=== PATIENT | male | born 1970 | race Caucasian/White ===

== ENCOUNTER → 2022-03-24 | Outpatient (CLI) | payer BC, SELFPAY ==
--- NOTE | 2022-03-24 08:38 | EKG12_ITS ---
Test Reason : PREOP Blood Pressure : / mmHG Vent. Rate : 072 BPM Atrial Rate : 072 BPM P-R Int : 168 ms QRS Dur : 092 ms QT Int : 384 ms P-R-T Axes : 070 074 071 degrees QTc Int : 420 ms Normal sinus rhythm Normal ECG Confirmed by RACHEL LEON, DIANN ([id number]), photo editor CAESAR FOSTER ([id number]) on 03/25/2022 8:23:44 AM Referred By: Juliet Diaz Confirmed By:DIANN RAMOS MD
[2022-03-24 08:42] LABS: Hemoglobin 15.9 g/dL (13.0-16.5)
[2022-03-24 08:56] LABS: Anion Gap 4 (5-15); BUN 13 mg/dL (7-18); Calcium,Total 9.4 mg/dL (8.5-10.1); Chloride 106 mmol/L (98-107); EST Glomerular Filtration Rate 84 mL/min (>60); Est Glom Filt Rate - Afr Amer 102 mL/min (>60); Glucose 114 mg/dL (74-106); Potassium 4.1 mmol/L (3.5-5.1); Sodium Level 139 mmol/L (136-145)
== END | disposition home or self-care (01) ==
PROVIDERS: PCP Student in an Organized Health Care Education/Training Program; Referring Provider Orthopaedic Surgery Hand Surgery; Visit Provider Orthopaedic Surgery Hand Surgery
DX: N18.9 Chronic kidney disease, unspecified (principal); S66.324A Laceration of extensor muscle, fascia and tendon of right ring finger at wrist and hand level, initial encounter
CPT/HCPCS: 36415; 80048; 85018; 93005

== ENCOUNTER 2023-03-30 10:49 | Emergency (ER) | payer BC, SELFPAY ==
[2023-03-30 10:51] VITALS: BP 122/95; PULSE 83; RESP 14; TEMP 36.1; O2SAT 95; BMI 23.7
--- NOTE | 2023-03-30 12:08 | EDS_ITS ---
HPI HPI - GI History of Present Illness Chief Complaint: Abd Pain Informant: patient Narrative Narrative: Intermittent left upper quadrant abdominal pain for past 3 weeks. More persistent over the last week. States a mild pain stools have been more stringy. Today had blood when he wiped. Colonoscopy from screening 5 to 6 years ago in [place]. States had a polypectomy that was removed. No anticoagulation medicines. No past medical history. Decreased urine output. Denies fever chills or sweats. States when he eats a large meal would feel fullness in his upper abdomen. Denies any vomiting. Prior similar symptoms: No PFSH PFSH Medical History Trigeminal neuralgia Home Medications cefdinir 300 mg capsule 300 mg PO BID #19 caps 03/30/23 [Rx Last Taken Unknown] metronidazole 500 mg tablet 500 mg PO Q8H #29 tabs 03/30/23 [Rx Last Taken Unknown] pantoprazole 40 mg tablet,delayed release 40 mg PO DAILY #30 tabs 03/30/23 [Rx Last Taken Unknown] Allergy/AdvReac Type Severity Reaction Status Date / Time No Known Allergies Allergy Verified 03/30/23 10:50 Social History Smoking Status: Former smoker ROS ROS ED Constitutional Constitutional ED: Denies chills, fever(s) or sweats Eyes Eyes: Denies change in vision ENT ENT ED: Denies dysphagia or sore throat Cardiovascular Cardiovascular: Denies chest pain, leg edema, palpitations or racing heartbeat Respiratory/Chest Respiratory/Chest: Denies cough, dyspnea or dyspnea on exertion Gastrointestinal Gastrointestinal: Reports abdominal pain; Denies diarrhea, nausea or vomiting Genitourinary Genitourinary ED: Denies dysuria, hematuria or urinary frequency Musculoskeletal Musculoskeletal: Denies back pain, extremity pain or neck pain Integumentary Denies rash or wounds Neurologic Neurologic: Denies headache(s), paresthesias or weakness EXAM Physical Exam Const Vital Signs: 03/30/23 10:51 Temperature 96.9 F L Temperature Source Temporal Pulse Rate 83 Respiratory Rate 14 Blood Pressure 122/95 H Blood Pressure Mean 104 Pulse Ox 95 Oxygen Delivery Method Room Air Positive well nourished and well developed General Appearance ED: well developed and NAD HEENT Reports moist mucous membranes normocephalic and atraumatic Eyes PERRL, EOMs intact bilaterally and conjunctivae normal General Eye ED: Yes normal appearance of both eyes Neck no lymphadenopathy and supple General: Negative for tenderness Chest Wall Chest: Negative for tenderness Resp normal respiratory effort and normal air movement Effort and Inspection: symmetric chest movement; Negative for respiratory distress Cardio regular rate, regular rhythm and no murmurs Peripheral Pulses: pulses 2+ throughout GI normal to inspection, nondistended, normoactive bowel sounds GI Narrative: Mild tenderness epigastrium left upper quadrant. No guarding or rebound. Negative Carbajal's or McBurney's tenderness. Palpation: Negative for guarding or rebound tenderness present Back/Spine no CVA tenderness and no thoracic nor lumbar tenderness Extremity normal to inspection General Extremety ED: Negative for edema or tenderness General Extremity: Negative for edema Neuro oriented x3 and no sensory deficits noted Sensorium / Orientation: awake and alert Skin no rashes or lesions noted and no wounds MDM MDM MDM Narrative Medical decision making narrative: Interventions / MDM: Differential diagnosis: Gastritis, colitis, colon cancer Diagnosis considered but do not suspect: N/A My EKG interpretation: N/A Imaging independently reviewed and interpreted by myself: CT abdomen pelvis with IV and p.o. contrast: Sigmoid diverticulitis, hepatic cysts. External documents reviewed: N/A Test considered but not ordered:N/A ED course: Patient nonsurgical abdomen progressing pain left upper quadrant. Reports decreased size of stools. Polypectomy 5 to 6 years ago [id number]. Labs were drawn CT scan with IV and oral contrast ordered. Was given Pepcid for his epigastric discomfort. 1430: Labs all stable, CT scan notes concerns for uncomplicated diverticulitis. Denies any rectal bleeding. He is feeling better on reexamination. Started on cefdinir and Flagyl p.o. He does not drink alcohol. Prescription for 10-day course of Flagyl and cefdinir, also pantoprazole for gastritis symptoms. He is given follow-up with GI for follow-up outpatient further testing. All questions were answered. Re-evaluation: stable Disposition discussed with patient/family/significant other: Patient Case discussed with consulting clinician: N/A This note was generated with [employer] dictation software. It may contain incorrect words, spelling, and punctuation that were not noted in checking the note before signing. Lab Data Attestation: I reviewed the patient's lab results. Labs: Laboratory Results - last 24 hr 03/30/23 11:09 WBC 6.0 RBC 4.44 L Hgb 14.2 Hct 40.6 MCV 91.4 MCH 32.0 MCHC 35.0 RDW Std Deviation 39.9 RDW Coeff of Micaela 11.9 Plt Count 246 MPV 10.1 Immature Gran % (Auto) 0.200 Neut % (Auto) 57.7 Lymph % (Auto) 33.4 Placer % (Auto) 6.7 Eos % (Auto) 1.3 Baso % (Auto) 0.7 Absolute Neuts (auto) 3.4 Absolute Lymphs (auto) 1.99 Nucleated RBC % 0 Sodium 140 Potassium 3.8 Chloride 107 Carbon Dioxide 27.0 Anion Gap 6 BUN 18 Creatinine 0.89 Estim Creat Clear Calc 101.39 Est GFR (MDRD) Af Amer 116 Est GFR (MDRD) Non-Af 96 BUN/Creatinine Ratio 20.3 H Glucose 95 Calcium 8.6 Total Bilirubin 0.40 AST 14 L ALT 23 Alkaline Phosphatase 63 Total Protein 6.5 Albumin 3.6 Globulin 2.9 Albumin/Globulin Ratio 1.2 Lipase 23 Radiography Diagnostic Testing: Clinical Impression(s) from Imaging Studies Abdomen/Pelvis CT 03/30/23 14:07 IMPRESSION: Findings suggestive of a colitis involving the rectosigmoid colon as well as the descending colon. Mild degree of bladder wall thickening although the bladder is not completely distended. Findings suggestive of multiple hepatic small cysts. Electronically Signed: John Sloan MD at 14:23 EDT , Discharge Plan Triage Chief Complaint: Abd Pain ED Provider: Johan Steiner Dx/Rx/DC Orders Clinical Impression: Acute diverticulitis of intestine, Gastritis Instructions: Diverticulitis Dc, ED Gastritis (Adult) Prescriptions: New metronidazole [metronidazole] 500 mg tablet 500 mg PO Q8H Qty: 29 0RF pantoprazole 40 mg tablet,delayed release (DR/EC) 40 mg PO DAILY Qty: 30 0RF cefdinir 300 mg capsule 300 mg PO BID Qty: 19 0RF Stand Alone Forms: ED Work / School Excuse Primary Care Provider: Luisito Rosales Referrals: Luisito Rosales DO [Primary Care Provider] - Friend,DO Leonid [Med Staff - Active Staff] - 1-2 Weeks Activity Restrictions/Additional Instructions: Oral and IV contrast CT sigmoid diverticulitis. Take antibiotics and finish as prescribed. Avoid alcohol or alcohol products. Follow-up with GI as an outpatient for likely plan colonoscopy in the near future. Return if any worsening symptoms Disposition Disposition: Home, Self Care
[2023-03-30] MEDS: 0.9% Normal Saline 1,000 ML 1000 ML IV (12:14)
[2023-03-30] MEDS: Famotidine 200 MG/20 ML MDV 20 MG in 0.9% Normal Saline (Pres. free 8 ML 300 MG IV (12:14)
[2023-03-30 12:15] LABS: Absolute Lymphocyte Count 1.99 X10^3/uL (0.83-4.51); Absolute Neutrophil Count 3.4 X10^3/uL (2.0-7.7); Basophil# 0.04 X10^3/uL; Basophil% 0.7 % (0-1); Eosinophil# 0.08 X10^3/uL; Eosinophils% 1.3 % (0-5); Hematocrit 40.6 % (40-54); Hemoglobin 14.2 g/dL (13.0-16.5); Lymphocyte # 1.99 X10^3/ul (0.83-4.51); Lymphocyte % 33.4 % (19-41); Mean Corpuscular Volume 91.4 fL (80-94); Mean Platelet Vol. 10.1 fl (6.2-12.0); Monocyte% 6.7 % (0-10); NRBC Flagged by Analyzer 0 % (0-5); Neutrophil # 3.43 X10^3/uL (2.7-7.7); Neutrophil % 57.7 % (47-70); Platelet Count 246 K/mm3 (150-450); RBC Distribution Width CV 11.9 % (11.6-14.6); RBC Distribution Width SD 39.9 fl (35.1-43.9); Red Blood Count 4.44 M/mm3 (4.6-6.2)
[2023-03-30 12:33] LABS: ALB/GLOB Ratio 1.2 RATIO (0.9-2.4); AST(SGOT) 14 U/L (15-37); Alanine Aminotransfer ALT/SGPT 23 U/L (16-61); Albumin, Serum 3.6 g/dL (3.2-5.0); Alkaline Phosphatase 63 U/L (45-117); Anion Gap 6 (5-15); BUN 18 mg/dL (7-18); BUN/Creat Ratio 20.3 RATIO (10-20); Calcium,Total 8.6 mg/dL (8.5-10.1); Chloride 107 mmol/L (98-107); Creatinine, Serum 0.89 mg/dL (0.70-1.30); EST Glomerular Filtration Rate 96 mL/min (>60); Est Glom Filt Rate - Afr Amer 116 mL/min (>60); Estimated Creatinine Clearance 101.39 ml/min; Globulin 2.9 g/dL (2.2-4.2); Glucose 95 mg/dL (74-106); Lipase 23 U/L (13-75); Potassium 3.8 mmol/L (3.5-5.1); Protein, Total 6.5 g/dL (6.4-8.2); Sodium Level 140 mmol/L (136-145)
--- NOTE | 2023-03-30 14:07 | CT_ITS ---
STUDY: CT ABDOMEN AND PELVIS WITH CONTRAST REASON FOR EXAM: Male, 52 years old. Two-week history of a abdominal pain. Blood in the stool. RADIATION DOSAGE (If Supplied By Facility): CTDIvol = ( 13.18 ) mGy, DLP = ( 670.84 ) mGycm TECHNIQUE: Transaxial images were obtained from the dome of the diaphragm to the symphysis pubis without oral contrast. Oral and amp; IV Gastrografin and amp; 100mL Isovue-300 was administered. Sagittal and coronal images were reconstructed. Individualized dose optimization techniques were used for this CT. COMPARISON: None. FINDINGS: The visualized lung bases are unremarkable. The visualized portions of the heart are within normal limits. There is decreased attenuation of the liver consistent with steatosis. Scattered small rounded hypodensities are seen throughout the liver suggestive of small cysts. Normal gallbladder and extrahepatic biliary system. Normal spleen. Normal pancreas. Normal bilateral adrenal glands. Tiny cyst is seen in the lateral aspect of the right kidney. Normal left kidney. Normal visualized stomach. Normal small intestine. There is evidence of a thickening of the rectosigmoid colon with mild increased markings in the surrounding peritoneal fat suggestive of a colitis. Mild degree of circumferential wall thickening of the mid descending colon as well. The appendix is visualized and appears normal. There is scattered atherosclerotic calcification of the abdominal aorta, without a demonstrated aneurysm. Normal inferior vena cava. Normal retroperitoneum. Mild degree of bladder wall thickening. There is a small umbilical hernia containing fat. There are mild degenerative changes of the visualized lumbar spine. CT/Abdomen/Pelvis WITH Contrast IMPRESSION: Findings suggestive of a colitis involving the rectosigmoid colon as well as the descending colon. Mild degree of bladder wall thickening although the bladder is not completely distended. Findings suggestive of multiple hepatic small cysts. Electronically Signed: John Sloan MD at 14:23 EDT ,
[2023-03-30 14:57] VITALS: RESP 16
== END 2023-03-30 14:57 | disposition home or self-care (01) ==
PROVIDERS: Emergency Provider Emergency Medicine; PCP Student in an Organized Health Care Education/Training Program; Visit Provider Emergency Medicine
DX: K57.32 Diverticulitis of large intestine without perforation or abscess without bleeding (principal); Z87.891 Personal history of nicotine dependence; K29.70 Gastritis, unspecified, without bleeding
CPT/HCPCS: 74177; 80053; 83690; 85025; 99283; J7030; Q9967; A4216; J3490

== ENCOUNTER 2024-07-31 08:25 | Emergency (ER) | payer BC, SELFPAY ==
[2024-07-31 08:26] VITALS: BP 129/111; PULSE 82; RESP 18; TEMP 37.2; O2SAT 99
--- NOTE | 2024-07-31 08:45 | ED.VIS.CHEST ---
HPI History of Present Illness Chief Complaint: Chest Other Informant: patient Onset/Context/Timing Onset: Today Activity at onset: sudden Timing: Continuous Quality: Positive for Sharp and Stabbing Location: Left Chest Worsened By: Movement of Torso, Palpation and Breathing Associated Symptoms: Negative for Nausea, Vomiting, Diaphoresis, Dyspnea, Cough, Fever, Lightheadedness, Acid Reflux or Palpitations Narrative Narrative: Patient presents with left-sided chest pain that began this morning. Patient states he rolled over in bed and felt a pop. Patient states his pain is sharp and shooting. Patient states it is over the left chest and radiates to the left scapular area. Patient states it is worse with certain movements and with deep breathing. Patient states nothing seems to help with it. Patient denies any fevers or chills. Patient denies any nausea or vomiting. Patient denies any shortness of breath. Patient denies any cardiac or PE risk factors. CVD Risk Factors: Negative for Hypertension, Diabetes, Hypercholesterolemia, Family History 1' </=55 or Smoking PE Risk Factors: Negative for Recent Travel/Surgery, Recent Immobilization, Prior DVT or PE, Cancer or OCP + Smoking + >/=35 PFSH [facility] Medical History (Updated 07/31/24 @ 09:[address] Jorge Chapin, ) Trigeminal neuralgia Home Medications ?Medication ?Instructions ?Recorded ?Last Taken ?Type cefdinir 300 mg capsule 300 mg PO BID #19 caps 03/30/23 Unknown Rx metronidazole 500 mg tablet 500 mg PO Q8H #29 tabs 03/30/23 Unknown Rx pantoprazole 40 mg tablet,delayed 40 mg PO DAILY #30 tabs 03/30/23 Unknown Rx release hydrocodone-acetaminophen 5-325mg 1 tab PO Q6H PRN PRN Pain 3 days 07/31/24 Unknown Rx 5mg-325mg #10 TABLETS Allergy/AdvReac Type Severity Reaction Status Date / Time No Known Allergies Allergy Verified 07/31/24 08:25 Surgical History (Updated 07/31/24 @ 08:[address] Jorge Chapin, DO) Hx of brain surgery Hx of inguinal herniorrhaphy S/P tendon repair History of carpal tunnel surgery of left wrist Social History Smoking Status: Former smoker ROS ROS ED Constitutional Constitutional ED: Denies chills or fever(s) Eyes Eyes: Denies blurry vision or change in vision ENT ENT ED: Reports rhinorrhea; Denies sore throat Cardiovascular Cardiovascular: Reports chest pain; Denies palpitations Respiratory/Chest Respiratory/Chest: Denies cough or dyspnea Gastrointestinal Gastrointestinal: Denies nausea or vomiting Genitourinary Genitourinary ED: Denies dysuria or hematuria Musculoskeletal Musculoskeletal: Reports back pain; Denies neck pain Integumentary Denies abscess or rash Neurologic Neurologic: Denies headache(s) or weakness Allergic/Immunologic Allergic/Immunologic ED: Denies mouth swelling or urticaria EXAM Physical Exam Const Vital Signs: 07/31/24 08:26 Temperature 98.9 F Temperature Source Oral Pulse Rate 82 Respiratory Rate 18 Blood Pressure 129/111 H Blood Pressure Mean 117 Pulse Ox 99 Oxygen Delivery Method Room Air Positive well nourished and well developed General Appearance ED: well developed and NAD HEENT Reports moist mucous membranes Neck supple and no JVD Chest Wall Chest Narrative: There is tenderness to palpation over the left anterior chest wall. There is no bony crepitance or step-off noted. There is no subcutaneous emphysema palpated. Resp normal respiratory effort and clear to auscultation bilaterally Cardio regular rate and regular rhythm GI soft to palpation, non-tender and non-distended Neuro oriented x3, CN's II-XII intact bilaterally and no sensory deficits noted Sensorium / Orientation: awake and alert Motor Exam: strength 5/5 throughout Psych mental status grossly normal MDM MDM MDM Narrative Medical decision making narrative: Differential diagnosis includes pneumothorax, musculoskeletal pain, gastroesophageal reflux disease, and anxiety. Chest x-ray will be obtained to assess for pneumothorax and rib fracture. Radiography Chest X-Ray - ED: 2 View, Read by ED Physician, Read by Radiologist and No Acute Disease Diagnostic Testing: Clinical Impression(s) from Imaging Studies Chest X-Ray 07/31/24 09:05 IMPRESSION: No acute pulmonary process Electronically Signed: Sonu Jackson MD at 9:35 EST , PA and lateral chest x-ray was obtained. There are 2 views. On my independent interpretation, lung soto are clear. There is normal cardiac silhouette. Bony thorax is normal. There is no acute process noted. Radiologist also interpreted the x-ray and agrees. Treatment and Re-Evaluation :: Patient was given an injection of Toradol here. Patient was advised of his findings. Patient states he is unable to take anti-inflammatory medications because his primary care physician told him he had a thin-walled kidney. Patient was given a prescription for a short course of [place]. Patient was instructed to take 10-15 deep breaths every hour while awake to prevent atelectasis and pneumonia. Patient was instructed to follow-up with his primary care physician in 5 to 7 days. Patient understood and was agreeable with the plan. All questions were answered. Discharge Plan Triage Chief Complaint: Chest Other ED Provider: Jorge Chapin Dx/Rx/DC Orders Clinical Impression: Chest wall pain, Elevated blood pressure reading without diagnosis of hypertension Instructions: ED Chest Pain, Uncertain Cause, ED Chest Wall Pain, Costochondritis Prescriptions: New hydrocodone-acetaminophen 5-325 mg tablet 1 tab PO Q6H PRN PRN (Reason: Pain) 3 Days Qty: 10 0RF No Action metronidazole [metronidazole] 500 mg tablet 500 mg PO Q8H Qty: 29 0RF pantoprazole 40 mg tablet,delayed release (DR/EC) 40 mg PO DAILY Qty: 30 0RF cefdinir 300 mg capsule 300 mg PO BID Qty: 19 0RF Primary Care Provider: Luisito Rosales Referrals: Luisito Rosales DO [Primary Care Provider] - 5-7 Days Print Language: Pashto Disposition Disposition: Home, Self Care
--- NOTE | 2024-07-31 09:05 | RAD_ITS ---
STUDY: X-RAY CHEST REASON FOR EXAM: Male, 54 years old. Chest pain/pressure TECHNIQUE: PA and 2 lateral views of the chest. COMPARISON: None. FINDINGS: The lungs are clear and expanded. There is no demonstrated pleural abnormality. Normal size heart. Normal mediastinum and woo. Normal visualized pulmonary arteries. Normal visualized aortic arch and descending thoracic aorta. Normal visualized thoracic spine. Normal visualized ribs, clavicles, and shoulders. There is no demonstrated abnormality of the visualized soft tissue structures of the upper abdomen. RAD/Chest PA and Lateral IMPRESSION: No acute pulmonary process Electronically Signed: Sonu Jackson MD at 9:35 EST ,
[2024-07-31 09:22] VITALS: BMI 23.5
[2024-07-31] MEDS: Ketorolac 60 MG/2 ML Vial IM (09:40)
== END 2024-07-31 10:05 | disposition home or self-care (01) ==
PROVIDERS: Emergency Provider Emergency Medicine; PCP Student in an Organized Health Care Education/Training Program; Visit Provider Emergency Medicine
DX: R07.89 Other chest pain (principal); R03.0 Elevated blood-pressure reading, without diagnosis of hypertension; Z79.899 Other long term (current) drug therapy; Z87.891 Personal history of nicotine dependence
CPT/HCPCS: 71046; 96372; 99282

== ENCOUNTER → 2025-02-26 | Outpatient (CLI) | payer BC, SELFPAY ==
[2025-02-26 13:27] LABS: Hematocrit 40.9 % (40-54); Hemoglobin 14.3 g/dL (13.0-16.5); Immature Granulocytes Count 0.010 X10^3/uL (0.0-0.0); Mean Corp Hgb Conc 35.0 g/dL (32-36); Mean Corpuscular Volume 90.9 fL (80-94); Mean Platelet Vol. 10.0 fl (6.2-12.0); NRBC Flagged by Analyzer 0 % (0-5); Platelet Count 241 K/mm3 (150-450); RBC Distribution Width CV 12.0 % (11.6-14.6); RBC Distribution Width SD 40.4 fl (35.1-43.9); Red Blood Count 4.50 M/mm3 (4.6-6.2); White Blood Count 4.7 K/mm3 (4.4-11.0)
[2025-02-26 13:59] LABS: AST(SGOT) 17 U/L (<=37); Alanine Aminotransfer ALT/SGPT 13 U/L (<=46); Albumin, Serum 4.4 g/dL (3.5-5.0); Alkaline Phosphatase 69 U/L (40-129); Anion Gap 11 (5-15); BUN 12 mg/dL (4-19); BUN/Creat Ratio 14.7 RATIO (10-20); Calcium,Total 9.3 mg/dL (7.6-11.0); Carbon Dioxide 24.1 mmol/L (21.0-32.0); Chloride 103 mmol/L (98-108); Globulin 2.4 g/dL (2.2-4.2); Glucose 100 mg/dL (70-99); Potassium 3.7 mmol/L (3.3-5.1)
[2025-02-26 14:01] LABS: CRP < 3.00 mg/L (0.0-3.0); Lipase 39 U/L (13-75)
[2025-03-02 16:09] LABS: ANTINUCLEAR ANTIBODIES DIRECT Negative (Negative); Egg, Whole <0.10 kU/L (Class 0); Mussels <0.10 kU/L (Class 0)
[2025-03-15 14:09] LABS: ACCA 2 units (0-90); ALCA 2 units (0-60); AMCA 13 units (0-100)
== END | disposition home or self-care (01) ==
LOC: LAB 11:45
PROVIDERS: PCP Student in an Organized Health Care Education/Training Program
DX: K59.00 Constipation, unspecified (principal); R63.0 Anorexia; R10.9 Unspecified abdominal pain
CPT/HCPCS: 36415; 80053; 83516; 83690; 84443; 85025; 86003; 86005; 86036; 86038; 86140; 86225; 86671

== ENCOUNTER → 2025-03-04 | Outpatient (CLI) | payer BC, SELFPAY ==
--- OUTSIDE RECORDS SUMMARY | 2025-03-04 07:18 | XMS RPT_ITS | CCD ---
Author Organization [facility] Care Team Providers Care Film Loader Name Role Phone BOBBY COMBS, DR MARTINEZ Primary Care Physician [phone] ROMAR DO, DR MARTINEZ Attending Unavailable ROMAR DO, DR MARTINEZ Primary Care Unavailable ROMAR DO, DR MARTINEZ Primary Care Unavailable REICHFIELD DO, MANISHA Attending Unavailable ROMAR DO, DR MARTINEZ Primary Care Unavailable ROMAR DO, DR MARTINEZ Attending Unavailable ROMAR DO, DR MARTINEZ Primary Care Unavailable ROMAR DO, DR MARTINEZ Attending Unavailable ROMAR DO, DR MARTINEZ Primary Care Unavailable MIGUELITO LEON, DR ROXANNE PARKER Attending Unavai lable ROMAR DO, DR MARTINEZ Attending Unavailable ROMAR DO, DR MARTINEZ Primary Care Unavailable ROMAR DO, DR MARTINEZ Attending Unavailable ROMAR DO, DR MARTINEZ Primary Care Unavailable ROMAR DO, DR MARTINEZ Primary Care Unavailable ROMAR DO, DR MARTINEZ Attending Unavailable Romar DO, Dr. Martinez Primary Care Provider [phone] Bobby COMBS, Dr. Martinez Referring Provider Jocelin Copeland Attending Provider [phone] Jocelin Bar Attending Unavailable Michelle Rosales Primary Care Unavailable Michelle Rosales Referring Unavailable Michelle Rosales Primary Care Unavailable Jorge Chapin Attending Unavailable Jocelin Bar Attending Unavailable Jocelin Bar Referring Unavailable Michelle Rosales Primary Care Unavailable Medications Current Medications Medication Drug Class(es) Dates Sig (Normalized) Sig (Original) acetaminophen 325 mg / oxyCODONE hydrochloride 5 mg oral tablet (1 source) Opioid Agonist Start: 08-13-2022 End: 08-18-2022 take 1 tablet by mouth every six hours as needed for pain Percocet 5 mg-325 mg oral tablet Dose = 1 tab(s), Oral, q6h, PRN for pain, X 5 day(s), # 10 tab(s), 0 Refill(s), Fall Rib pain, 76 Start Date: 08/13/22 Stop Date: 08/18/22 Status: Ordered Albuterol 90 mcg/actuation aerosol (1 source) Start: 01-12-2025 Albuterol 90 mcg/actuation aerosol Active ug INHALATION January 12, 2025 12:00am cephalexin 500 mg oral capsule (1 source) Cephalosporin Antibacterial Start: 11-20-2021 End: 11-27-2021 cephalexin 500 mg oral capsule Dose : 500 mg = 1 cap(s), Oral, q6hr, X 7 day(s), # 28 cap(s), 0 Refill(s), 11/27/21 18:56:00 EDT, Abscess Hypertension, 78.8 Start Date: 11/20/21 Stop Date: 11/27/21 Status: Ordered ciclopirox 80 mg/ml topical solution (2 sources) Start: 05-07-2023 End: 03-09-2025 ciclopirox 8% topical solution Apply 1 adrian, Topical, Daily, apply to affected toenails and surrounding area once daily, remove with alcohol every 7 days prior to reapplication, Apply to: toenails, X 48 week(s), # 6.6 mL, 1 Refill(s), Pharmacy: [facility]/pharmacy #[id number], 177.8, cm, 05/07/23 14:46:00 EDT, Height, 74.3, kg, 05/07/23 14:46:00 EDT, Dosing Weight Start Date: 05/07/23 Stop Date: 03/09/25 Status: Ordered DME MISCellaneous (2 sources) Start: 06-22-2023 DME MISCellaneous See Instructions, Spacer chamber, Dx: J44.9, # 1 EA, 0 Refill(s), Pharmacy: [facility]/pharmacy #[id number], COPD, mild, 174, cm, 06/22/23 16:35:00 EST, Height, 75.6, kg, 06/22/23 16:35:00 EST, Dosing Weight Start Date: 06/22/23 Status: Ordered docusate sodium 100 mg oral tablet (2 sources) Start: 06-22-2023 End: 09-20-2023 docusate sodium 100 mg oral tablet Dose : 100 mg = 1 tab(s), Oral, BID, PRN as needed for constipation, with plenty of water, # 180 tab(s), 0 Refill(s), Pharmacy: [facility]/pharmacy #[id number], 174, cm, 06/22/23 16:35:00 EST, Height, kg, 06/22/23 16:35:00 EST, Dosing Weight Start Date: 06/22/23 Stop Date: 09/20/23 Status: Ordered polyethylene glycol 3350 78949 mg powder for oral solution (1 source) Osmotic Laxative Start: 12-27-2024 MiraLax oral powder for reconstitution See Instructions, gram(s) Oral qDay, 0 Refill(s) Start Date: 12/27/24 Status: Ordered Repeat number: 1 Completed/Discontinued Medications Medication Drug Class(es) Dates Sig (Normalized) Sig (Original) acetaminophen 325 mg / HYDROcodone bitartrate 5 mg oral tablet (1 source) Opioid Agonist Start: 07-31-2024 End: 02-26-2025 Hydrocodone-Acetam inophen 5-325 mg tablet Discontinued 1 {tbl} PO EVERY 6 HOURS NEEDED as needed for Pain 10 3 0 July 31, 2024 February 26, 2025 11:01am Chest wall pain Other chest pain Albuterol (8 sources) beta2-Adrenergic Agonist Start: 05-07-2023 End: 08-05-2023 take 2 puff(s) by inhalation every four hours as needed for wheezing Ventolin HFA MDI (90 mcg/inh) inhalation aerosol 2 puff(s), Inhalation, q4h, PRN Shortness of breath or wheezing, use with spacer chamber. Okay to substitute alternative brand if needed for insurance., # 1 EA, 2 Refill(s), Pharmacy: [facility]/pharmacy #[id number], 177.8, cm, 05/07/23 14:46:00 EDT, Height, kg, 05/07/23 14:46:00 EDT, Dosing Weight Start Date: 05/07/23 Stop Date: 08/05/23 Status: Ordered Quantity: 1.0 Unit: EA Repeat number: 3 Start: 05-07-2023 End: 08-05-2023 take 2 puff(s) by inhalation every four hours as needed for wheezing Ventolin HFA MDI (90 mcg/inh) inhalation aerosol 2 puff(s), Inhalation, q4h, PRN Shortness of breath or wheezing, use with spacer chamber. Okay to substitute alternative brand if needed for insurance., # 1 EA, 2 Refill(s), [id number], 177.8, cm, 05/07/23 14:46:00 EDT, Height, kg, 05/07/23 14:46:00 EDT, Dosing Weight Start Date: 05/07/23 Stop Date: 08/05/23 Status: Ordered Start: 11-14-2021 End: 02-12-2022 Ventolin HFA MDI (90 mcg/inh ) inhalation aerosol 2 puff(s), Inhalation, q4h, PRN Shortness of breath or wheezing, use with spacer chamber. PHARMACY PLEASE DISPENSE SPACER. Okay to substitute alternative brand if needed for insurance., # 1 EA, 2 Refill(s), [id number], 176, cm, 10/15... Start Date: 11/14/21 Stop Date: 02/12/22 Status: Ordered amitriptyline hydrochloride 10 mg oral tablet (1 source) Tricyclic Antidepressant Start: 02-26-2022 End: 04-27-2022 amitriptyline 10 mg oral tablet Dose : 10 mg = 1 tab(s), Oral, qHS, # 60 tab(s), 0 Refill(s), Pharmacy: [facility]/pharmacy #[id number], 176, cm, 02/26/22 16:40:00 EDT, Height Start Date: 02/26/22 Stop Date: 04/27/22 Status: Ordered cefdinir 300 mg oral capsule (2 sources) Cephalosporin Antibacterial Start: 03-30-2023 End: 02-26-2025 take 1 capsule by mouth twice daily Cefdinir 300 mg capsule Discontinued 300 mg PO TWICE A DAY March 30, 2023 12:00am February 26, 2025 11:00am hydrOXYzine hydrochloride 50 mg oral tablet (2 sources) Antihistamine Start: 11-24-2021 End: 12-01-2021 hydrOXYzine hydrochloride 50 mg oral tablet Dose : 50 mg = 1 tab(s), Oral, QID, PRN as needed for anxiety, Do not drive, operate heavy machinery, or drink alcohol while on this medication. Okay to try half a tab when first starting medication. Do not take any other anti-histamines while on this... Start Date: 11/24/21 Stop Date: 12/01/21 Status: Ordered metroNIDAZOLE 500 mg oral tablet (2 sources) Nitroimidazole Antimicrobial Start: 03-30-2023 End: 02-26-2025 take 1 tablet by mouth every eight hours Metronidazole 500 mg tablet Discontinued 500 mg PO Q8H 29 0 March 30, 2023 12:00am February 26, 2025 11:01am pantoprazole 40 mg delayed release oral tablet (2 sources) Proton Pump Inhibitor Start: 03-30-2023 End: 02-26-2025 take 1 tablet by mouth once daily Pantoprazole 40 mg tablet,delayed release (DR/EC) Discontinued 40 mg PO DAILY 30 0 March 30, 2023 12:00am February 26, 2025 11:01am Problems Active Problems Problem Classification Problem Date Documented Date Episodic/Chronic Abdominal hernia (5 sources) Umbilical hernia 05-07-2023 Episodic Abdominal pain (8 sources) Generalized abdominal pain; Translations: [Left lower quadrant pain] Onset: 5 11-17-2024 Episodic Chronic obstructive pulmonary disease and bronchiectasis (10 sources) Mild chronic obstructive pulmonary disease; Translations: [Chronic obstructive pulmonary disease, unspecified] Onset: 5 10-15-2021 Chronic Coronary atherosclerosis and other heart disease (3 sources) Calcification of coronary artery 11-17-2024 Chronic Diabetes mellitus without complication (5 sources) Hyperglycemia 06-28-2023 Episodic Diseases of white blood cells (9 sources) Leukocytosis 10-15-2021 Chronic Disorders of lipid metabolism (9 sources) Mixed hyperlipidemia 11-13-2021 Chronic Comment on above: 11/14 ASCVD risk 4.2% 07/17 ascvd risk 4.4 % Diverticulosis and diverticulitis (2 sources) Diverticulitis of intestine; Translations: [Diverticulitis of intestine, part unspecified, without perforation or abscess without bleeding] 03-30-2023 Chronic E Codes: Fall (1 source) Fall; Translations: [Unspecified fall, initial encounter] Onset: Episodic Essential hypertension (1 source) Essential hypertension; Translations: [Essential (primary) hypertension] Onset: 2 Chronic Gastritis and duodenitis (2 sources) Gastritis; Translations: [Gastritis, unspecified, without bleeding] 03-30-2023 Episodic Genitourinary symptoms and ill-defined conditions (5 sources) Slowing of urinary stream 05-07-2023 Episodic Mycoses (5 sources) Onychomycosis of toenails 05-07-2023 Episodic Other and unspecified benign neoplasm (5 sources) Melanocytic nevus 05-07-2023 Episodic Other circulatory disease (1 source) Elevated blood-pressure reading without diagnosis of hypertension; Translations: [Elevated blood-pressure reading, without diagnosis of hypertension] 08-08-2024 Episodic Other diseases of kidney and ureters (8 sources) Kidney disease 11-14-2021 Episodic Other eye disorders (5 sources) Ptosis of eyelid 06-22-2023 Episodic Other gastrointestinal disorders (9 sources) Irritable bowel syndrome 10-15-2021 Chronic Other gastrointestinal disorders (5 sources) Change in stool caliber 05-07-2023 Episodic Other gastrointestinal disorders (2 sources) Constipation; Translations: [Constipation, unspecified] 02-26-2025 Episodic Other gastrointestinal disorders (2 sources) Constipation, unspecified; Translations: [Constipation, unspecified] Onset: Episodic Other liver diseases (5 sources) Steatosis of liver 05-07-2023 Chronic Other liver diseases (3 sources) Liver mass 11-17-2024 Episodic Other lower respiratory disease (9 sources) Dyspnea 10-15-2021 Episodic Other lower respiratory disease (1 source) Pleuritic pain; Translations: [Pleurodynia] Onset: 3 Episodic Other lower respiratory disease (2 sources) Inspiratory wheezing 12-27-2024 Episodic Other male genital disorders (3 sources) Pain of left testicle 11-17-2024 Episodic Other male genital disorders (3 sources) Testicular mass 11-17-2024 Episodic Other nervous system disorders (9 sources) Trigeminal neuralgia 10-15-2021 Episodic Other nutritional; endocrine; and metabolic disorders (8 sources) Hyperbilirubinemia 11-14-2021 Chronic Other nutritional; endocrine; and metabolic disorders (9 sources) Weight loss 10-27-2021 Episodic Other nutritional; endocrine; and metabolic disorders (1 source) Decrease in appetite 02-07-2025 Episodic Other nutritional; endocrine; and metabolic disorders (2 sources) Loss of appetite; Translations: [Anorexia] 02-26-2025 Episodic Other nutritional; endocrine; and metabolic disorders (2 sources) Anorexia; Translations: [Anorexia] Onset: 5 Episodic Other screening for suspected conditions (not mental disorders or infectious disease) (2 sources) Encounter for screening for malignant neoplasm of respiratory organs; Translations: [Encounter for screening for malignant neoplasm of respiratory organs] Onset: 4 Episodic Peripheral and visceral atherosclerosis (5 sources) Abdominal aortic atherosclerosis 05-07-2023 Chronic Residual codes; unclassified (6 sources) Difficulty sleeping 02-26-2022 Episodic Screening and history of mental health and substance abuse codes (10 sources) Ex-smoker; Translations: [Personal history of nicotine dependence] Onset: 5 10-27-2021 Episodic Comment on above: Quit smoking 7 years ago, was smoking 1.5 packs per day, smoked 28 years. Skin and subcutaneous tissue infections (1 source) Abscess of skin and/or subcutaneous tissue; Translations: [Cutaneous abscess, unspecified] Onset: 2 Episodic Substance-related disorders (5 sources) History of drug abuse 05-07-2023 Chronic Comment on above: opiates Tuberculosis (9 sources) H/O: tuberculosis 10-15-2021 Episodic Unclassified (9 sources) Glomerular filtration rate decreased 10-15-2021 Unclassified (2 sources) Right knee abrasion 12-27-2024 Unclassified (2 sources) Stool finding 12-27-2024 Past or Other Problems Problem Classification Problem Date Documented Da te Episodic/Chronic Nonspecific chest pain (11 sources) Chest pain; Translations: [Chest wall pain] Onset: 07-31-2024 10-15-2021 Episodic Results Test Name Value Interpretation Reference Range Facility TARA w/ Reflex Mult Confirmon 02-26-2025 TARA-D See below TNP Normal [facility] Comment on above: Performed By: #### L 500.4050, L3100.5450, L501.9520, L100.0100, L501.6710, L501.2450 #### [facility] [address] [place], [address] CBC W/Diff, Automatedon 08 Absolute Lymph 1.63 X10 3/uL Normal 0.83-4.51 [facility] Comment on above: Performed By: #### L 500.4050, L3100.5450, L501.9520, L100.0100, L501.6710, L501.2450 #### [facility] [address] [place], [address] Absolute Neut 2.7 X10 3/uL Normal 2.0-7.7 [facility] Comment on above: Performed By: #### L 500.4050, L3100.5450, L501.9520, L100.0100, L501.6710, L501.2450 #### [facility] [address] [place], [address] Basophils/100 WBC (Bld) 0.6 % Normal 0-1 [facility] Comment on above: Performed By: #### L 500.4050, L3100.5450, L501.9520, L100.0100, L501.6710, L501.2450 #### [facility] [address] [place], [address] Eosinophils/100 WBC (Bld) 1.3 % Normal 0-5 [facility] Comment on above: Performed By: #### L 500.4050, L3100.5450, L501.9520, L100.0100, L501.6710, L501.2450 #### [facility] [address] [place], [address] Erythrocyte distribution width (RBC) [Ratio] 12.0 % Normal 11.6-14.6 [facility] Comment on above: Performed By: #### L 500.4050, L3100.5450, L501.9520, L100.0100, L501.6710, L501.2450 #### [facility] [address] [place], [address] Hematocrit (Bld) [Volume fraction] 40.9 % Normal 40-54 [facility] Comment on above: Performed By: #### L 500.4050, L3100.5450, L501.9520, L100.0100, L501.6710, L501.2450 #### [facility] [address] [place], [address] Hemoglobin (Bld) [Mass/Vol] 14.3 g/dL Normal 13.0-16.5 [facility] Comment on above: Performed By: #### L 500.4050, L3100.5450, L501.9520, L100.0100, L501.6710, L501.2450 #### [facility] [address] [place], [address] IG% 0.200 Normal 0.0-0.9 [facility] Comment on above: Result Comment: IG% - Immature Granulocytes (promyelocytes, myelocytes and metamyelocytes) > 1% indicates that a LEFT SHIFT is Present. Performed By: #### L 500.4050, L3100.5450, L501.9520, L100.0100, L501.6710, L501.2450 #### [facility] [address] [place], [address] Lymphocytes/100 WBC (Bld) 34.5 % Normal 19-41 [facility] Comment on above: Performed By: #### L 500.4050, L3100.5450, L501.9520, L100.0100, L501.6710, L501.2450 #### [facility] [address] [place], [address] MCH (RBC) [Entitic mass] 31.8 pg Normal 27.0-32.0 [facility] Comment on above: Performed By: #### L 500.4050, L3100.5450, L501.9520, L100.0100, L501.6710, L501.2450 #### [facility] [address] [place], [address] MCHC (RBC) [Mass/Vol] 35.0 g/dL Normal 32-36 [facility] Comment on above: Performed By: #### L 500.4050, L3100.5450, L501.9520, L100.0100, L501.6710, L501.2450 #### [facility] [address] [place], [address] MCV (RBC) [Entitic vol] 90.9 fL Normal 80-94 [facility] Comment on above: Performed By: #### L 500.4050, L3100.5450, L501.9520, L100.0100, L501.6710, L501.2450 #### [facility] [address] [place], [address] Monocytes/100 WBC (Bld) 6.1 % Normal 0-10 [facility] Comment on above: Performed By: #### L 500.4050, L3100.5450, L501.9520, L100.0100, L501.6710, L501.2450 #### [facility] [address] [place], [address] Neutrophils/100 WBC (Bld) 57.3 % Normal 47-70 [facility] Comment on above: Performed By: #### L 500.4050, L3100.5450, L501.9520, L100.0100, L501.6710, L501.2450 #### [facility] [address] [place], [address] Nucleated RBC (Bld) [#/Vol] 0 10*3/uL Normal 0-5 [facility] Comment on above: Performed By: #### L 500.4050, L3100.5450, L501.9520, L100.0100, L501.6710, L501.2450 #### [facility] [address] [place], [address] Platelet mean volume (Bld) [Entitic vol] 10.0 fL Normal 6.2-12.0 [facility] Comment on above: Performed By: #### L 500.4050, L3100.5450, L501.9520, L100.0100, L501.6710, L501.2450 #### [facility] [address] [place], [address] Platelets (Bld) [#/Vol] 241 10*3/uL Normal 150-450 [facility] Comment on above: Performed By: #### L 500.4050, L3100.5450, L501.9520, L100.0100, L501.6710, L501.2450 #### [facility] [address] [place], [address] RBC (Bld) [#/Vol] 4.50 10*6/uL Low 4.6-6.2 [facility] Comment on above: Performed By: #### L 500.4050, L3100.5450, L501.9520, L100.0100, L501.6710, L501.2450 #### [facility] [address] [place], [address] RDW SD 40.4 fl Normal 35.1-43.9 [facility] Comment on above: Performed By: #### L 500.4050, L3100.5450, L501.9520, L100.0100, L501.6710, L501.2450 #### [facility] [address] [place], [address] WBC (Bld) [#/Vol] 4.7 10*3/uL Normal 4.4-11.0 [facility] Comment on above: Performed By: #### L 500.4050, L3100.5450, L501.9520, L100.0100, L501.6710, L501.2450 #### [facility] [address] [place], [address] CRPon 02-26-2025 C-REACTIVE PROT < 3.00 Normal 0.0-3.0 [facility] Comment on above: Performed By: #### L 500.4050, L3100.5450, L501.9520, L100.0100, L501.6710, L501.2450 #### [facility] [address] [place], [address] Comprehensive Metabolic Prof ilon 02-26-2025 Albumin [Mass/Vol] 4.4 g/dL Normal 3.5-5.0 [facility] Comment on above: Performed By: #### L 500.4050, L3100.5450, L501.9520, L100.0100, L501.6710, L501.2450 #### [facility] [address] [place], [address] Albumin/Globulin [Mass ratio] 1.9 {ratio} Normal 0.9-2.4 [facility] Comment on above: Performed By: #### L 500.4050, L3100.5450, L501.9520, L100.0100, L501.6710, L501.2450 #### [facility] [address] [place], [address] ALK PHOS 69 U/L Normal 40-129 [facility] Comment on above: Performed By: #### L 500.4050, L3100.5450, L501.9520, L100.0100, L501.6710, L501.2450 #### [facility] [address] [place], [address] ALT [Catalytic activity/Vol] 13 U/L Normal <=46 [facility] Comment on above: Performed By: #### L 500.4050, L3100.5450, L501.9520, L100.0100, L501.6710, L501.2450 #### [facility] [address] [place], [address] AST [Catalytic activity/Vol] 17 U/L Normal <=37 [facility] Comment on above: Performed By: #### L 500.4050, L3100.5450, L501.9520, L100.0100, L501.6710, L501.2450 #### [facility] [address] [place], [address] Bilirubin [Mass/Vol] 0.72 mg/dL Normal 0.00-1.30 [facility] Comment on above: Performed By: #### L 500.4050, L3100.5450, L501.9520, L100.0100, L501.6710, L501.2450 #### [facility] [address] [place], [address] BUN/CRE 14.7 RATIO Normal 10-20 [facility] Comment on above: Performed By: #### L 500.4050, L3100.5450, L501.9520, L100.0100, L501.6710, L501.2450 #### [facility] [address] [place], [address] Calcium [Mass/Vol] 9.3 mg/dL Normal 7.6-11.0 [facility] Comment on above: Performed By: #### L 500.4050, L3100.5450, L501.9520, L100.0100, L501.6710, L501.2450 #### [facility] [address] [place], [address] Chloride [Moles/Vol] 103 mmol/L Normal 98-108 [facility] Comment on above: Performed By: #### L 500.4050, L3100.5450, L501.9520, L100.0100, L501.6710, L501.2450 #### [facility] [address] [place], [address] CO2 [Moles/Vol] 24.1 mmol/L Normal 21.0-32.0 [facility] Comment on above: Performed By: #### L 500.4050, L3100.5450, L501.9520, L100.0100, L501.6710, L501.2450 #### [facility] [address] [place], [address] Creatinine [Mass/Vol] 0.82 mg/dL Normal 0.70-1.20 [facility] Comment on above: Performed By: #### L 500.4050, L3100.5450, L501.9520, L100.0100, L501.6710, L501.2450 #### [facility] [address] [place], [address] GAP 11 Normal 5-15 [facility] Comment on above: Performed By: #### L 500.4050, L3100.5450, L501.9520, L100.0100, L501.6710, L501.2450 #### [facility] [address] [place], [address] GFR/1.73 sq M.predicted among non-blacks MDRD (S/P/Bld) [Vol rate/Area] 105 mL/min/{1.73_m2} Normal >60 [facility] Comment on above: Result Comment: mL/m in/1.73m2 CKD-EPI Creatinine Equation (2020) Performed By: #### L 500.4050, L3100.5450, L501.9520, L100.0100, L501.6710, L501.2450 #### [facility] [address] [place], [address] Globulin (S) [Mass/Vol] 2.4 g/dL Normal 2.2-4.2 [facility] Comment on above: Performed By: #### L 500.4050, L3100.5450, L501.9520, L100.0100, L501.6710, L501.2450 #### [facility] [address] [place], [address] Glucose [Mass/Vol] 100 mg/dL High 70-99 [facility] Comment on above: Performed By: #### L 500.4050, L3100.5450, L501.9520, L100.0100, L501.6710, L501.2450 #### [facility] [address] [place], [address] Potassium [Moles/Vol] 3.7 mmol/L Normal 3.3-5.1 [facility] Comment on above: Performed By: #### L 500.4050, L3100.5450, L501.9520, L100.0100, L501.6710, L501.2450 #### [facility] [address] [place], [address] Sodium [Moles/Vol] 139 mmol/L Normal 133-145 [facility] Comment on above: Performed By: #### L 500.4050, L3100.5450, L501.9520, L100.0100, L501.6710, L501.2450 #### [facility] [address] [place], [address] T PROT 6.8 g/dL Normal 5.9-8.4 [facility] Comment on above: Performed By: #### L 500.4050, L3100.5450, L501.9520, L100.0100, L501.6710, L501.2450 #### [facility] [address] [place], [address] Urea nitrogen [Mass/Vol] 12 mg/dL Normal 4-19 [facility] Comment on above: Performed By: #### L 500.4050, L3100.5450, L501.9520, L100.0100, L501.6710, L501.2450 #### [facility] [address] [place], [address] Gastroenterology Visit Repor ton 02-26-2025 Gastroenterology Visit Report [facility] Gastroenterology [address] [place] [address] OFFICE VISIT Date of Service: 02/26/25 MR#: [id number] Acct: [id number] Name: KEVIN KNIGHT Rep #: [id number] : 1970 Provider: LUCÍA sexton Age/Sex: 54/M [place] [facility] [email or web address]: Signed Intake Vital Signs 07/31/24 09:22 Height 5 ft 10 in Intake Visit Reasons: ABDOMINAL PAIN Chief Complaint: Abdominal Pain Home Advisor Required: No Accompanied by: Self Allergies No Known Allergies Allergy (Verified 02/26/25 10:59) Medications ???Medication ???Instructions ???Recorded ???Confirmed ???Type albuterol 90 mcg/actuation aerosol mcg inhalation 01/12/25 01/12/25 History inhaler Nurse's Note: Patient is here with a c/o abdominal pain. Patient states that he gets all of his pain on the left side. He gets it in two separate areas one being up in his rib area on the left side and then down in his lower abdomen area. Pt states when he gets the pain in the lower area it is so bad he hunches over in pain. Pt states that he has been experiencing some nausea with the pain as well but no vomiting. [facility] Medical History Umbilical hernia Liver masses Leukocytosis IBS (irritable bowel syndrome) Hyperglycemia History of TB (tuberculosis) Hyperbilirubinemia Droopy eyelid Fatty liver COPD, mild Coronary artery calcification Testicular mass Change in consistency of stool Generalized abdominal pain Trigeminal neuralgia Surgical History Hx of brain surgery Hx of inguinal herniorrhaphy S/P tendon repair History of carpal tunnel surgery of left wrist Family History Mother Cancer Social History Smoking Status: Former smoker alcohol intake: never substance use type: marijuana HPI HPI Chief Complaint: Abdominal Pain Details: KEVIN KNIGHT, is a 54 M who presents to the office today for establishment with [facility] regarding concerns of left side abdominal pain. He reports the abdominal pain localized to the LUQ and will progress to the LLQ, recurring over a couple of years, with periods of remission lasting months. Most recent episode of abdominal pain started the second week of October this year, waking up at night with urgency to defecate but unable to have a BM. He admits to manual disimpaction one time and then had loose stools that followed. Was treated with Miralax by PCP but has since stopped this medication due to looser stools and increased BM frequency. Last colonoscopy was in , reported to him that everything was normal except for diverticulosis and you have IBS, repeat in 10years for surveillance per Dr. Blackmon. CT abd/pelvis demonstrated bowel wall thickening at the distal ileum, was advised GI FU. He reports today that he is experiencing a poor appetite, unintentional weight loss of 10LBS over 4 months, early satiety when he does eat, excess flatus, and is having pencil thin strands of stool daily with straining. He states that he used to be able to set an alarm clock by regular BM routine, at 630am and 5p, give or take 15 minutes. I don't know what happened to that, but I miss it. He states the only time that he's seen blood in his stool was when he disimpacted himself. He reports excessive flatulence, especially in the mornings. He denies recent illness, exposure to known ill persons, change in water supply, or exposure to livestock. ROS Const Constitutional: Positive for headache(s) and weight change; No fatigue or fever(s) ENT ENT: Positive for headache(s); No difficulty swallowing Gastro GI: Positive for abdominal pain, bloating, change in bowel habits, constipation, diarrhea and nausea/dyspepsia; No belching, change in stool character, coffee ground emesis, cramping, heartburn, difficulty swallowing, feeling full early, excessive flatus, incontinent of stools, Vomiting blood/hematemesis, Blood in stool, loose stools, Black,tarry stools, pain with swallowing or other Musc Musculoskeletal: No joint pain Skin Skin: No yellowing of the eye or itchy eyes Neuro Neurology: Positive for headache(s) Psych Psychiatric: No anxiety and No depression Endo Endocrine: Positive for weight change; No fatigue Aller/Imm Allergy/Immunologic: No itchy eyes [place]/Lymp Hematologic/Lymphatic : No easy bleeding or easy bruising Exam Const General: cooperative, healthy appearing, comfortable and no acute distress Nutritional Appearance: average body habitus Orientation: alert and oriented x3 HENMT Head: normal to inspection Ears: hearing grossly normal bilaterally Eyes General: appearance normal, both eyes a (more content not included)... Normal [facility] Lipaseon 02-26-2025 Lipase [Catalytic activity/Vol] 39 U/L Normal 13-75 [facility] Comment on above: Result Comment: Glenroy castellanos note: LIPASE revised reference range effective 22. New Lipase methodology. Expected to produce lower values than the previous assay method. NEW Reference Range: 13 - 75 U/L Performed By: #### L 500.4050, L3100.5450, L501.9520, L100.0100, L501.6710, L501.2450 #### [facility] [address] [place], [place], [id number] Thyroid Stim Hormone (TSH)on 02-26-2025 TSH 2.500 uIU/mL Normal 0.300-4.200 [facility] Comment on above: Performed By: #### L 500.4050, L3100.5450, L501.9520, L100.0100, L501.6710, L501.2450 #### [facility] [address] [place], [place], [id number] XR CHEST 2 VIEWSon 5 XR CHEST 2 VIEWS ORIGINAL EXAMINATION: TWO XRAY VIEWS OF THE CHEST01/15/2025 3:39 pm COMPARISON: 08/13/2022 HISTORY: ORDERING SYSTEM PROVIDED HISTORY: Reason for Exam: wheezing right lung FINDINGS: The heart size is normal.Mild hyperinflation. There is no pulmonary consolidation. No pneumothorax or pleural effusion. No aggressive osseous lesions identified.Mild spurring seen of the spine. IMPRESSION: Mild hyperinflation. No consolidation. Interpreted by: Henrry Rangel MD Preliminary Report By: Henrry Rangel MD Electronically signed By Henrry Rangel MD Dictated Date: 01/17/2025 8:19:45 AM Prelim Date: 01/17/2025 8:20:18 AM Sign Date: 01/17/2025 8:20:18 AM Ordering Provider: MICHELLE Marino [facility] .Auto Diffon 11-21-2024 Basophil, Absolute 0.0 10 3/mcL Normal 0.0-0.3 [facility] Comment on above: Performed By: #### L IP, CMP, CBC, PSA, ADIFF, GFR, ANEU #### [address] [address] Basophils/100 WBC (Bld) 0.7 % Normal 0.0-2.5 [facility] Comment on above: Performed By: #### L IP, CMP, CBC, PSA, ADIFF, GFR, ANEU #### [address] [address] Eosinophil, Absolute 0.1 10 3/mcL Normal 0.0-0.[address] [facility] Comment on above: Performed By: #### L IP, CMP, CBC, PSA, ADIFF, GFR, ANEU #### [address] [address] Eosinophils/100 WBC (Bld) 2.4 % Normal 0.0-6.0 [facility] Comment on above: Performed By: #### L IP, CMP, CBC, PSA, ADIFF, GFR, ANEU #### [address] [address] Lymphocyte, Absolute 1.8 10 3/mcL Normal 0.9-4.[address] [facility] Comment on above: Performed By: #### L IP, CMP, CBC, PSA, ADIFF, GFR, ANEU #### [address] [address] Lymphocytes/100 WBC (Bld) 36.7 % Normal 20.0-40.0 [facility] Comment on above: Performed By: #### L IP, CMP, CBC, PSA, ADIFF, GFR, ANEU #### [address] [address] Monocyte, Absolute 0.4 10 3/mcL Normal 0.1-1.4 [facility] Comment on above: Performed By: #### L IP, CMP, CBC, PSA, ADIFF, GFR, ANEU #### [address] [address] Monocytes/100 WBC (Bld) 7.4 % Normal 2.0-13.0 [facility] Comment on above: Performed By: #### L IP, CMP, CBC, PSA, ADIFF, GFR, ANEU #### [address] [address] Neutrophils/100 WBC (Bld) 52.8 % Normal 50.0-75.0 [facility] Comment on above: Performed By: #### L IP, CMP, CBC, PSA, ADIFF, GFR, ANEU #### [address] [address] .GFRon 11-21-2024 Estimated Glomerular Filtration Rate 91 ml/min/1.73sqm Normal [facility] Comment on above: Result Comment: Stages of Chronic Kidney Disease (CKD) Stage Description eGFR(ml/min/1.73 sq.m.) CKD 1 Normal kidney function or >=90 normal kindney function with possible kidney damage (ex. Proteinuria) CKD 2 Kidney damage with mild loss 60-89 of kidney function CKD 3a Mild to moderate loss of kidney 45-59 function CKD 3b Moderate to severe loss of 30-44 of kindey function CKD 4 Severe loss of kidney function 15-29 CKD 5 Kidney failure <15 Note: (go live 2024) the eGFR calculation was updated to the 2020 CKD-EPI creatinine equation without a race factor to calculate the eGFR results. Performed By: #### L IP, CMP, CBC, PSA, ADIFF, GFR, ANEU #### [address] [address] .NEUABSon 11-21-2024 Neutrophil, Absolute 2.7 10 3/mcL Normal 2.3-8.[address] [facility] Comment on above: Performed By: #### L IP, CMP, CBC, PSA, ADIFF, GFR, ANEU #### [place] [id number] CBCon 11-21-2024 Erythrocyte distribution width (RBC) [Ratio] 12.7 % Normal 11.5-15.5 [facility] Comment on above: Performed By: #### L IP, CMP, CBC, PSA, ADIFF, GFR, ANEU #### [place] [address] Hematocrit (Bld) [Volume fraction] 43.5 % Normal 40.0-52.0 [facility] Comment on above: Performed By: #### L IP, CMP, CBC, PSA, ADIFF, GFR, ANEU #### [place] [address] Hgb 15.1 G/dL Normal 13.0-17.5 [facility] Comment on above: Performed By: #### L IP, CMP, CBC, PSA, ADIFF, GFR, ANEU #### [place] [address] MCH (RBC) [Entitic mass] 31.8 pg Normal 27.0-33.0 [facility] Comment on above: Performed By: #### L IP, CMP, CBC, PSA, ADIFF, GFR, ANEU #### [place] [address] MCHC 34.8 G/dL Normal 32.0-36.0 [facility] Comment on above: Performed By: #### L IP, CMP, CBC, PSA, ADIFF, GFR, ANEU #### [place] [address] MCV (RBC) [Entitic vol] 91.3 fL Normal 81.0-100.0 [facility] Comment on above: Performed By: #### L IP, CMP, CBC, PSA, ADIFF, GFR, ANEU #### [address] [address] Platelet 212 10 3/mcL Normal 150-450 [facility] Comment on above: Performed By: #### L IP, CMP, CBC, PSA, ADIFF, GFR, ANEU #### [address] [address] Platelet mean volume (Bld) [Entitic vol] 8.1 fL Normal 6.4-10.5 [facility] Comment on above: Performed By: #### L IP, CMP, CBC, PSA, ADIFF, GFR, ANEU #### [address] [address] RBC 4.76 10 6/mcL Normal 4.50-6.00 [facility] Comment on above: Performed By: #### L IP, CMP, CBC, PSA, ADIFF, GFR, ANEU #### [address] [address] WBC 5.0 10 3/mcL Normal 4.5-10.8 [facility] Comment on above: Performed By: #### L IP, CMP, CBC, PSA, ADIFF, GFR, ANEU #### [address] [address] CMPon 11-21-2024 Albumin Level 4.0 G/dL Normal 3.5-5.0 [facility] Comment on above: Performed By: #### L IP, CMP, CBC, PSA, ADIFF, GFR, ANEU #### [address] [address] Albumin/Globulin [Mass ratio] 1.4 {ratio} Normal 1.1-2.5 [facility] Comment on above: Performed By: #### L IP, CMP, CBC, PSA, ADIFF, GFR, ANEU #### [address] [address] ALP [Catalytic activity/Vol] 67 U/L Normal 40-135 [facility] Comment on above: Performed By: #### L IP, CMP, CBC, PSA, ADIFF, GFR, ANEU #### [address] [address] ALT [Catalytic activity/Vol] 21 U/L Normal 16-63 [facility] Comment on above: Performed By: #### L IP, CMP, CBC, PSA, ADIFF, GFR, ANEU #### [address] [address] AST [Catalytic activity/Vol] 15 U/L Normal 10-40 [facility] Comment on above: Performed By: #### L IP, CMP, CBC, PSA, ADIFF, GFR, ANEU #### [address] [address] Bili Total 0.6 mg/dL Normal 0.2-1.0 [facility] Comment on above: Result Comment: Use of this assay is not recommended for patients undergoing treatment with eltrombopag due to the potential for falsely elevated results. Performed By: #### L IP, CMP, CBC, PSA, ADIFF, GFR, ANEU #### [address] [address] BUN/Creatinine Ratio 18 ratio Normal 7-27 [facility] Comment on above: Performed By: #### L IP, CMP, CBC, PSA, ADIFF, GFR, ANEU #### [address] [address] Calcium [Mass/Vol] 9.5 mg/dL Normal 8.4-10.2 [facility] Comment on above: Performed By: #### L IP, CMP, CBC, PSA, ADIFF, GFR, ANEU #### [address] [address] Chloride [Moles/Vol] 104 mmol/L Normal 98-107 [facility] Comment on above: Performed By: #### L IP, CMP, CBC, PSA, ADIFF, GFR, ANEU #### [address] [address] CO2 [Moles/Vol] 31 mmol/L High 22-29 [facility] Comment on above: Performed By: #### L IP, CMP, CBC, PSA, ADIFF, GFR, ANEU #### [address] [address] Creatinine [Mass/Vol] 0.99 mg/dL Normal 0.67-1.17 [facility] Comment on above: Performed By: #### L IP, CMP, CBC, PSA, ADIFF, GFR, ANEU #### [address] [address] Electrolyte Balance 4.0 mEq/L Normal 4.0-15.0 [facility] Comment on above: Performed By: #### L IP, CMP, CBC, PSA, ADIFF, GFR, ANEU #### [place] [address] Globulin 2.9 G/dL Normal 2.7-4.4 [facility] Comment on above: Performed By: #### L IP, CMP, CBC, PSA, ADIFF, GFR, ANEU #### [place] [address] Glucose [Mass/Vol] 107 mg/dL High 70-105 [facility] Comment on above: Performed By: #### L IP, CMP, CBC, PSA, ADIFF, GFR, ANEU #### [address] [address] Potassium [Moles/Vol] 4.6 mmol/L Normal 3.5-5.1 [facility] Comment on above: Performed By: #### L IP, CMP, CBC, PSA, ADIFF, GFR, ANEU #### [address] [address] Sodium [Moles/Vol] 139 mmol/L Normal 136-145 [facility] Comment on above: Performed By: #### L IP, CMP, CBC, PSA, ADIFF, GFR, ANEU #### [address] [address] Total Protein 6.9 G/dL Normal 6.4-8.2 [facility] Comment on above: Performed By: #### L IP, CMP, CBC, PSA, ADIFF, GFR, ANEU #### [facility] [address] [place], [place] [address] Urea nitrogen [Mass/Vol] 18 mg/dL Normal 7-18 [facility] Comment on above: Performed By: #### L IP, CMP, CBC, PSA, ADIFF, GFR, ANEU #### [facility] [address] [place], [place] [address] CT ABDOMEN/PELVIS W/CONTRAST on 11-21-2024 CT ABDOMEN/PELVIS W/CONTRAST ORIGINAL HISTORY: Pain, liver masses COMPARISON: [address] 03 August 2023 TECHNIQUE: CT of the Abdomen and Pelvis following uncomplicated administration of intravenous and oral contrast, with sagittal and coronal reconstructions. This exam was performed according to our departmental dose optimization program, and includes the following measures where applicable: automated exposure control, adjustment of the mAs and/or kVp according to patient size and/or exam, and an iterative reconstruction algorithm. FINDINGS: The study is mildly degraded by motion. There are left and right hepatic cysts and there are subcentimeter hypodensities in the liver, too small to characterize further. There are subcentimeter hypodensities in the right kidney, too small to characterize further. The remaining abdominal organs are unremarkable in appearance. Bowel is normal in caliber. There is mild irregular wall thickening at the distal ileum. A normal appendix is identified. There is no free fluid. IMPRESSION: Hepatic lesions are not significantly changed since the examination of July 2022, most of small to characterize further. The wall of the distal ileum appears somewhat irregular and thickened here, but this may be due to poor distension. If there is concern small-bowel follow-through or CT enterography may be considered. Interpreted by: Kevin Goldstein MD Preliminary Report By: Kevin Goldstein MD Electronically signed By Kevin Goldstein MD Dictated Date: 11/21/2024 10:46:30 AM Prelim Date: 11/21/2024 10:53:08 AM Sign Date: 11/21/2024 10:53:08 AM Ordering Provider: MICHELLE Marino [facility] LABORATORYOrdered By: SYSTEM SYSTEM on 11-21-2024 Albumin BCP dye [Mass/Vol] 4.0 G/dL Normal 3.5 - 5.0 G/dL AO ADM SS Albumin/Globulin [Mass ratio] 1.4 {ratio} Normal 1.1 - 2.5 ratio AO ADM SS ALP [Catalytic activity/Vol] 67 U/L Normal 40 - 135 U/L AO ADM SS ALT With P-5'-P [Catalytic activity/Vol] 21 U/L Normal 16 - 63 U/L AO ADM SS AST With P-5'-P [Catalytic activity/Vol] 15 U/L Normal 10 - 40 U/L AO ADM SS Basophils (Bld) [#/Vol] 0.0 103/mcL Normal 0.0 - 0.3 10^3/mcL AO Workflow SS Basophils/100 WBC (Bld) 0.7 % Normal 0.0 - 2.5 % AO Workflow SS Bilirubin [Mass/Vol] 0.6 mg/dL Normal 0.2 - 1 .0 mg/dL AO ADM SS Comment on above: Interpretive Data: U se of this assay is not recommended for patients undergoing treatment with eltrombopag due to the potential for falsely elevated results. Calcium [Mass/Vol] 9.5 mg/dL Normal 8.4 - 10. 2 mg/dL AO ADM SS Chloride [Moles/Vol] 104 mmol/L Normal 98 - 10 7 mmol/L AO ADM SS CO2 [Moles/Vol] 31 mmol/L High 22 - 29 mmol/L AO ADM SS Creatinine [Mass/Vol] 0.99 mg/dL Normal 0.67 - 1.17 mg/dL AO ADM SS Electrolyte Balance 4.0 mEq/L Normal 4.0 - 15 .0 mEq/L AO ADM SS Eosinophil, Absolute 0.1 103/mcL Normal 0.0 - 0 .7 10^3/mcL AO Workflow SS Eosinophils/100 WBC (Bld) 2.4 % Normal 0.0 - 6.0 % AO Workflow SS Erythrocyte distribution width (RBC) [Ratio] 12.7 % Normal 11.5 - 15.5 % AO Workflow SS Estimated Glomerular Filtration Rate 91 ml/min/1.73sqm Invalid Interpretation Code AO Chemistry S Comment on above: Interpretive Data: Stages of Chronic Kidney Disease (CKD) Stage Description eGFR(ml/min/1.73 sq.m.) CKD 1 Normal kidney function or >=90 normal kindney function with possible kidney damage (ex. Proteinuria) CKD 2 Kidney damage with mild loss 60-89 of kidney function CKD 3a Mild to moderate loss of kidney 45-59 function CKD 3b Moderate to severe loss of 30-44 of kindey function CKD 4 Severe loss of kidney function 15-29 CKD 5 Kidney failure <15 Note: (go live 2024) the eGFR calculation was updated to the 2020 CKD-EPI creatinine equation without a race factor to calculate the eGFR results. Globulin 2.9 G/dL Normal 2.7 - 4.4 G/dL AO ADM SS Glucose [Mass/Vol] 107 mg/dL High 70 - 105 mg/dL AO ADM SS Hematocrit (Bld) [Volume fraction] 43.5 % Normal 40.0 - 52.0 % AO Workflow SS Hemoglobin (Bld) [Mass/Vol] 15.1 G/dL Normal 13.0 - 17.5 G/dL AO Workflow SS Lipase [Catalytic activity/Vol] 32 U/L Normal 16 - 77 U/L AO ADM SS Lymphocytes (Bld) [#/Vol] 1.8 103/mcL Normal 0.9 - 4.3 10^3/mcL AO Workflow SS Lymphocytes/100 WBC (Bld) 36.7 % Normal 20.0 - 40.0 % AO Workflow SS MCH (RBC) [Entitic mass] 31.8 pg Normal 27.0 - 33.0 pg AO Workflow SS MCHC 34.8 G/dL Normal 32.0 - 36.0 G/dL AO Workflow SS MCV (RBC) [Entitic vol] 91.3 fL Normal 81.0 - 100.0 fL AO Workflow SS Monocytes (Bld) [#/Vol] 0.4 103/mcL Normal 0.1 - 1.4 10^3/mcL AO Workflow SS Monocytes/100 WBC (Bld) 7.4 % Normal 2.0 - 13.0 % AO Workflow SS Neutrophils (Bld) [#/Vol] 2.7 103/mcL Normal 2.3 - 8.1 10^3/mcL AO Workflow SS Neutrophils/100 WBC (Bld) 52.8 % Normal 50.0 - 75.0 % AO Workflow SS Platelet mean volume (Bld) [Entitic vol] 8.1 fL Normal 6.4 - 10.5 fL AO Workflow SS Platelets (Bld) [#/Vol] 212 103/mcL Normal 150 - 450 10^3/mcL AO Workflow SS Potassium [Moles/Vol] 4.6 mmol/L Normal 3.5 - 5.1 mmol/L AO ADM SS Prostate specific Ag [Mass/Vol] 1.17 ng/mL Normal 0.00 - 4.00 ng/mL AO ADM SS Protein [Mass/Vol] 6.9 G/dL Normal 6.4 - 8.2 G/dL AO ADM SS RBC (Bld) [#/Vol] 4.76 106/mcL Normal 4.50 - 6.0 0 10^6/mcL AO Workflow SS Sodium [Moles/Vol] 139 mmol/L Normal 136 - 145 mmol/L AO ADM SS Urea nitrogen [Mass/Vol] 18 mg/dL Normal 7 - 18 mg/dL AO ADM SS Urea nitrogen/Creatinine [Mass ratio] 18 ratio Normal 7 - 27 ratio AO ADM SS WBC (Bld) [#/Vol] 5.0 103/mcL Normal 4.5 - 10.8 10^3/mcL AO Workflow SS LIPon 11-21-2024 Lipase Level 32 U/L Normal 16-77 [facility] Comment on above: Performed By: #### L IP, CMP, CBC, PSA, ADIFF, GFR, ANEU #### [address] [address] PSAon 11-21-2024 Prostate Specific Antigen 1.17 ng/mL Normal 0.00-4.00 [facility] Comment on above: Performed By: #### L IP, CMP, CBC, PSA, ADIFF, GFR, ANEU #### [address] [address] US SCROTUM CONTENTSon 2024 US SCROTUM CONTENTS ORIGINAL EXAMINATION: ULTRASOUND OF THE SCROTUM/TESTICLES WITH COLOR DOPPLER FLOW EVALUATION11/21/2024 11:08 am Scrotal Ultrasound with Duplex Doppler evaluation TECHNIQUE: Duplex ultrasound using B-mode/neville scaled imaging, Doppler spectral analysis and color flow Doppler was obtained of the testicles. Grayscale, color Doppler and spectral waveform evaluation This report is based on interpretation of permanently recorded ultrasound images. COMPARISON: None HISTORY: ORDERING SYSTEM PROVIDED HISTORY: Reason for Exam: left testicular patient found mass, ?varicocele, FINDINGS: Right testicle: 4.3 x 1.8 x 2.6 cm Left testicle: 3.1 x 1.9 x 2.6 cm There is probably mild tubular ectasia of the rete testis on the right side which is a benign process of no clinical significance. No suspicious focal nor diffuse abnormalities are seen. Color Doppler flow is seen in both testicles in a symmetric fashion. Spectral waveform analysis of the testicles shows arterial and venous waveforms in both testicles. Right epididymis: There are multiple small cysts in the right epididymis. The largest of these is 1.1 cm. Left epididymis: The palpable lump on the left side is a simple appearing cyst in the epididymal head that is 2.2 cm. There are other smaller left epididymal cysts also. Hydrocele: There is a physiologic amount of peritesticular fluid bilaterally, no significant hydrocele. A small scrotolith is present on the left side within the fluid. Varicocele: No obvious significant varicocele on this study. IMPRESSION: The palpable lump on the left is from an epididymal cyst. Normal testicles. No obvious or significant varicocele. Interpreted by: Robbie Bermudez MD Preliminary Report By: Robbie Bermudez MD Electronically signed By Robbie Bermudez MD Dictated Date: 11/21/2024 5:07:17 PM Prelim Date: 11/21/2024 5:10:37 PM Sign Date: 11/21/2024 5:10:37 PM Ordering Provider: MICHELLE Marino [facility] Chest PA and Lateralon 07-31 Chest PA and Lateral [facility] Imaging Services [address] [place] [id number] Chest PA and Lateral MR#: [id number] Acct: [id number] Name: KEVIN KNIGHT Rep #: [id number] : 1970 M 54 From: Marc Jackson MD PCP: Dr. Michelle Rosales DO Status: REG ER Study: Chest PA and Lateral Date of Exam: 07/31/24 Exam# [id number] Ordering Dr: Jorge Chapin DO [id number] STUDY: X-RAY CHEST REASON FOR EXAM: Male, 54 years old. Chest pain/pressure TECHNIQUE: PA and 2 lateral views of the chest. COMPARISON: None. FINDINGS: The lungs are clear and expanded. There is no demonstrated pleural abnormality. Normal size heart. Normal mediastinum and woo. Normal visualized pulmonary arteries. Normal visualized aortic arch and descending thoracic aorta. Normal visualized thoracic spine. Normal visualized ribs, clavicles, and shoulders. There is no demonstrated abnormality of the visualized soft tissue structures of the upper abdomen. RAD/Chest PA and Lateral IMPRESSION: No acute pulmonary process Electronically Signed: Sonu Jackson MD at 9:35 EST , CC: Dr. Jorge Chapin DO; Dr. Michelle Rosales DO Wheel Alignment Technician: Signed Normal [facility] Emergency Department Summary on 07-31-2024 Emergency Department Summary [facility] Medical Records Department [address] [place] [id number] Emergency Department Summary 07/31/24 MR#: [id number] Acct: [id number] Name: KEVIN KNIGHT Rep #: [id number] : 1970 54 From: Jorge Chapin DO PCP: Dr. Michelle Rosales DO Status:DEP ER Location: ED HPI History of Present Illness Chief Complaint: Chest Other Informant: patient Onset/Context/Timing Onset: Today Activity at onset: sudden Timing: Continuous Quality: Positive for Sharp and Stabbing Location: Left Chest Worsened By: Movement of Torso, Palpation and Breathing Associated Symptoms: Negative for Nausea, Vomiting, Diaphoresis, Dyspnea, Cough, Fever, Lightheadedness, Acid Reflux or Palpitations Narrative Narrative: Patient presents with left-sided chest pain that began this morning. Patient states he rolled over in bed and felt a pop. Patient states his pain is sharp and shooting. Patient states it is over the left chest and radiates to the left scapular area. Patient states it is worse with certain movements and with deep breathing. Patient states nothing seems to help with it. Patient denies any fevers or chills. Patient denies any nausea or vomiting. Patient denies any shortness of breath. Patient denies any cardiac or PE risk factors. CVD Risk Factors: Negative for Hypertension, Diabetes, Hypercholesterolemia, Family History 1' or Smoking PE Risk Factors: Negative for Recent Travel/Surgery, Recent Immobilization, Prior DVT or PE, Cancer or OCP + Smoking + >/=35 PFSH PFSH Medical History (Updated 07/31/24 @ 09:[address] Jorge Chapin, DO) Trigeminal neuralgia Home Medications ???Medication ???Instructions ???Recorded ???Last Taken ???Type cefdinir 300 mg capsule 300 mg PO BID #19 caps 03/30/23 Unknown Rx metronidazole 500 mg tablet 500 mg PO Q8H #29 tabs 03/30/23 Unknown Rx pantoprazole 40 mg tablet,delayed 40 mg PO DAILY #30 tabs 03/30/23 Unknown Rx release hydrocodone-acetamino phen 5-325mg 1 tab PO Q6H PRN PRN Pain 3 days 07/31/24 Unknown Rx 5mg-325mg #10 TABLETS Allergy/AdvReac Type Severity Reaction Status Date / Time No Known Allergies Allergy Verified 07/31/24 08:25 Surgical History (Updated 07/31/24 @ 08:[address] Jorge Chapin, ) Hx of brain surgery Hx of inguinal herniorrhaphy S/P tendon repair History of carpal tunnel surgery of left wrist Social History Smoking Status: Former smoker ROS ROS ED Constitutional Constitutional ED: Denies chills or fever(s) Eyes Eyes: Denies blurry vision or change in vision ENT ENT ED: Reports rhinorrhea; Denies sore throat Cardiovascular Cardiovascular: Reports chest pain; Denies palpitations Respiratory/Chest Respiratory/Chest: Denies cough or dyspnea Gastrointestinal Gastrointestinal: Denies nausea or vomiting Genitourinary Genitourinary ED: Denies dysuria or hematuria Musculoskeletal Musculoskeletal: Reports back pain; Denies neck pain Integumentary Denies abscess or rash Neurologic Neurologic: Denies headache(s) or weakness Allergic/Immunologic Allergic/Immunologic ED: Denies mouth swelling or urticaria EXAM Physical Exam Const Vital Signs: 07/31/24 08:26 Temperature 98.9 F Temperature Source Oral Pulse Rate 82 Respiratory Rate 18 Blood Pressure 129/111 H Blood Pressure Mean 117 Pulse Ox 99 Oxygen Delivery Method Room Air Positive well nourished and well developed General Appearance ED: well developed and NAD HEENT Reports moist mucous membranes Neck supple and no JVD Chest Wall Chest Narrative: There is tenderness to palpation over the left anterior chest wall. There is no bony crepitance or step-off noted. There is no subcutaneous emphysema palpated. Resp normal respiratory effort and clear to auscultation bilaterally Cardio regular rate and regular rhythm GI soft to palpation, non-tender and non-distended Neuro oriented x3, CN's II-XII intact bilaterally and no sensory deficits noted Sensorium / Orientation: awake and alert Motor Exam: strength 5/5 throughout Psych mental status grossly normal MDM MDM MDM Narrative Medical decision making narrative: Differential diagnosis includes pneumothorax, musculoskeletal pain, gastroesophageal reflux disease, and anxiety. Chest x-ray will be obtained to assess for pneumothorax and rib fracture. Radiography Chest X-Ray - ED: 2 View, Read by ED Physician, Read by Radiologist and No Acute Disease Diagnostic Testing: Clinical Impression(s) from Imaging Studies Chest X-Ray 07/31/24 09:05 IMPRESSION: No acute pulmonary process Electronically Signed: Sonu Jackson MD at 9:35 EST Reading Location ID and State: [facility] / [place] , Service support [phone] (more content not included)... Normal [facility] CT THORAX SCREENING W/O CONT [facility] 08-04-2023 CT THORAX SCREENING W/O CONTRAST ORIGINAL EXAMINATION: LOW DOSE SCREENING CT OF THE CHEST WITHOUT CONTRAST08/03/2023 4:50 pm TECHNIQUE: Low dose lung cancer screening CT of the chest was performed without the administration of intravenous contrast. Multiplanar reformatted images are provided for review. Automated exposure control, iterative reconstruction, and/or weight based adjustment of the mA/kV was utilized to reduce the radiation dose to as low as reasonably achievable. COMPARISON: None. HISTORY: ORDERING SYSTEM PROVIDED HISTORY: Reason for Exam: former smoker quit 10 yrs ago, 30 pack-year history of smoking FINDINGS: The heart is normal in size. Atherosclerosis seen of the coronary arteries and aorta. The great vessels appear normal in caliber. No lymphadenopathy is visible on this unenhanced exam. There are 2 low-density liver lesions, 1 in the left lobe of the liver on series 2, image 113 measuring 1.7 cm anteriorly and medially, and 1 near the dome measuring 1.3 cm. The abdomen is not evaluated in detail. No pulmonary consolidation is identified. No pulmonary nodules no pneumothorax or pleural effusion. No aggressive osseous lesions visible. Degenerative changes seen in the spine. IMPRESSION: No pulmonary nodules. For patients with appropriate lung cancer risk, annual CT screening is recommended. Coronary artery calcifications. Low-density liver lesions, these are statistically cysts or hemangiomas but are not definitively characterized. If desired MRI of the abdomen with contrast could further evaluate. Information below is for Lung nodule tracking purposes: Nodule: NLN Other Findings: P-CAC P-MLV Change: Na Recall : 1yr scr Recall Type: LDCT LungRads: 1s Interpreted by: Zeb Miller MD Preliminary Report By: Zeb Miller MD Electronically signed By Zeb Miller MD Dictated Date: 08/04/2023 11:31:43 AM Prelim Date: 08/04/2023 11:36:59 AM Sign Date: 08/04/2023 11:36:59 AM Ordering Provider: MICHELLE Marino [facility] ([place]) CT HEAD OR BRAIN W/O CONTRAS Ton 06-28-2023 CT HEAD OR BRAIN W/O CONTRAST ORIGINAL EXAMINATION: CT OF THE HEAD WITHOUT CONTRAST 06/28/2023 3:26 pm TECHNIQUE: CT of the head was performed without the administration of intravenous contrast. Automated exposure control, iterative reconstruction, and/or weight based adjustment of the mA/kV was utilized to reduce the radiation dose to as low as reasonably achievable. COMPARISON: None. HISTORY: ORDERING SYSTEM PROVIDED HISTORY: Reason for Exam: trigeminal neuralgia, left eyelid droop PCP noticed lt eyelid drop at recent visit. Pt is unaware of how long droop has been going on. Hx trigeminal neuralgia, chronic pain rt side of head and face. FINDINGS: BRAIN/VENTRICLES: There is no acute intracranial hemorrhage, mass effect or midline shift. No abnormal extra-axial fluid collection. The neville-white differentiation is maintained without evidence of an acute infarct. There is no evidence of hydrocephalus. ORBITS: The visualized portion of the orbits demonstrate no acute abnormality. SINUSES: The visualized paranasal sinuses and mastoid air cells demonstrate no acute abnormality. SOFT TISSUES/SKULL: No acute abnormality of the visualized skull or soft tissues. IMPRESSION: No acute intracranial abnormality. Interpreted by: Tee Lebron MD Preliminary Report By: Tee Lebron MD Electronically signed By Tee Lebron MD Dictated Date: 06/28/2023 3:30:14 PM Prelim Date: 06/28/2023 3:30:28 PM Sign Date: 06/28/2023 3:30:28 PM Ordering Provider: MICHELLE Marino [facility] ([place]) .Auto Diffon 06-26-2023 Basophil, Absolute 0.0 10 3/mcL Normal 0.0-0.2 [facility] ([place]) Comment on above: Performed By: #### L IP, CBC, CMP, ANEU, MDW, ADIFF, GFR #### [address] [address] Basophils/100 WBC (Bld) 0.8 % Normal 0.0-2.5 [facility] ([place]) Comment on above: Performed By: #### L IP, CBC, CMP, ANEU, MDW, ADIFF, GFR #### [address] [address] Eosinophil, Absolute 0.1 10 3/mcL Normal 0.0-0.4 [facility] ([place]) Comment on above: Performed By: #### L IP, CBC, CMP, ANEU, MDW, ADIFF, GFR #### [address] [address] Eosinophils/100 WBC (Bld) 2.1 % Normal 0.0-7.0 [facility] ([place]) Comment on above: Performed By: #### L IP, CBC, CMP, ANEU, MDW, ADIFF, GFR #### [address] [address] Lymphocyte, Absolute 1.9 10 3/mcL Normal 0.8-3.9 [facility] ([place]) Comment on above: Performed By: #### L IP, CBC, CMP, ANEU, MDW, ADIFF, GFR #### [address] [address] Lymphocytes/100 WBC (Bld) 30.8 % Normal 10.0-50.0 [facility] ([place]) Comment on above: Performed By: #### L IP, CBC, CMP, ANEU, MDW, ADIFF, GFR #### [address] [address] Monocyte, Absolute 0.5 10 3/mcL Normal 0.2-1.0 [facility] ([place]) Comment on above: Performed By: #### L IP, CBC, CMP, ANEU, MDW, ADIFF, GFR #### [address] [address] Monocytes/100 WBC (Bld) 8.9 % Normal 1.7-13.0 [facility] ([place]) Comment on above: Performed By: #### L IP, CBC, CMP, ANEU, MDW, ADIFF, GFR #### [address] [address] Neutrophils/100 WBC (Bld) 57.4 % Normal 37.0-80.0 [facility] ([place]) Comment on above: Performed By: #### L IP, CBC, CMP, ANEU, MDW, ADIFF, GFR #### [address] [address] .GFRon 06-26-2023 GFR Non- 79 ml/min/1.73sqm Normal [facility] ([place]) Comment on above: Result Comment: GFR Population mean for , Non- Americans Ages 20-29 = 116 mL/min/1.73 sq.m. Ages 30-39 = 107 mL/min/1.73 sq.m. Ages 40-49 = 99 mL/min/1.73 sq.m. Ages 50-59 = 93 mL/min/1.73 sq.m. Ages 60-69 = 85 mL/min/1.73 sq.m. Ages 70+ = 75 mL/min/1.73 sq.m. Chronic Kidney Disease: Less than 60 mL/min/1.73 square meters End Stage Renal Disease: Less than 15 mL/min/1.73 square meters Performed By: #### L IP, CBC, CMP, ANEU, MDW, ADIFF, GFR #### [address] [address] GFR 96 ml/min/1.73sqm Normal [facility] ([place]) Comment on above: Result Comment: GFR Population mean for , Non- Americans Ages 20-29 = 116 mL/min/1.73 sq.m. Ages 30-39 = 107 mL/min/1.73 sq.m. Ages 40-49 = 99 mL/min/1.73 sq.m. Ages 50-59 = 93 mL/min/1.73 sq.m. Ages 60-69 = 85 mL/min/1.73 sq.m. Ages 70+ = 75 mL/min/1.73 sq.m. Chronic Kidney Disease: Less than 60 mL/min/1.73 square meters End Stage Renal Disease: Less than 15 mL/min/1.73 square meters Performed By: #### L IP, CBC, CMP, ANEU, MDW, ADIFF, GFR #### [address] [address] .NEUABSon 06-26-2023 Neutrophil, Absolute 3.5 10 3/mcL Normal 2.9-6.2 [facility] ([place]) Comment on above: Performed By: #### L IP, CBC, CMP, ANEU, MDW, ADIFF, GFR #### [address] [address] CBCon 06-26-2023 Erythrocyte distribution width (RBC) [Ratio] 12.7 % Normal 11.5-14.5 [facility] ([place]) Comment on above: Performed By: #### L IP, CBC, CMP, ANEU, MDW, ADIFF, GFR #### [address] [address] Hematocrit (Bld) [Volume fraction] 44.6 % Normal 42.0-52.0 [facility] ([place]) Comment on above: Performed By: #### L IP, CBC, CMP, ANEU, MDW, ADIFF, GFR #### [address] [address] Hgb 15.1 G/dL Normal 14.0-18.0 [facility] ([place]) Comment on above: Performed By: #### L IP, CBC, CMP, ANEU, MDW, ADIFF, GFR #### [address] [address] MCH (RBC) [Entitic mass] 31.6 pg High 27.0-31.2 [facility] ([place]) Comment on above: Performed By: #### L IP, CBC, CMP, ANEU, MDW, ADIFF, GFR #### [address] [address] MCHC 33.9 G/dL Normal 31.8-35.4 [facility] ([place]) Comment on above: Performed By: #### L IP, CBC, CMP, ANEU, MDW, ADIFF, GFR #### [address] [address] MCV (RBC) [Entitic vol] 93.3 fL Normal 80.0-94.0 [facility] ([place]) Comment on above: Performed By: #### L IP, CBC, CMP, ANEU, MDW, ADIFF, GFR #### [address] [address] Platelet 235 10 3/mcL Normal 130-400 [facility] ([place]) Comment on above: Performed By: #### L IP, CBC, CMP, ANEU, MDW, ADIFF, GFR #### [address] [address] Platelet mean volume (Bld) [Entitic vol] 7.9 fL Normal 7.4-10.4 [facility] ([place]) Comment on above: Performed By: #### L IP, CBC, CMP, ANEU, MDW, ADIFF, GFR #### [address] [address] RBC 4.78 10 6/mcL Normal 4.04-6.13 [facility] ([place]) Comment on above: Performed By: #### L IP, CBC, CMP, ANEU, MDW, ADIFF, GFR #### [address] [address] WBC 6.2 10 3/mcL Normal 4.6-10.8 [facility] ([place]) Comment on above: Performed By: #### L IP, CBC, CMP, ANEU, MDW, ADIFF, GFR #### [address] [address] CMPon 06-26-2023 Albumin Level 3.9 G/dL Normal 3.5-5.0 [facility] ([place]) Comment on above: Performed By: #### L IP, CBC, CMP, ANEU, MDW, ADIFF, GFR #### [address] [address] Albumin/Globulin [Mass ratio] 1.3 {ratio} Normal 1.1-2.5 [facility] ([place]) Comment on above: Performed By: #### L IP, CBC, CMP, ANEU, MDW, ADIFF, GFR #### [address] [address] ALP [Catalytic activity/Vol] 79 U/L Normal 40-135 [facility] ([place]) Comment on above: Performed By: #### L IP, CBC, CMP, ANEU, MDW, ADIFF, GFR #### [address] [address] ALT [Catalytic activity/Vol] 26 U/L Normal 16-63 [facility] ([place]) Comment on above: Performed By: #### L IP, CBC, CMP, ANEU, MDW, ADIFF, GFR #### [address] [address] AST [Catalytic activity/Vol] 16 U/L Normal 10-40 [facility] ([place]) Comment on above: Performed By: #### L IP, CBC, CMP, ANEU, MDW, ADIFF, GFR #### [address] [address] Bili Total 1.2 mg/dL High 0.2-1.0 [facility] ([place]) Comment on above: Result Comment: Use of this assay is not recommended for patients undergoing treatment with eltrombopag due to the potential for falsely elevated results. Performed By: #### L IP, CBC, CMP, ANEU, MDW, ADIFF, GFR #### [address] [address] BUN/Creatinine Ratio 14 ratio Normal 7-27 [facility] ([place]) Comment on above: Performed By: #### L IP, CBC, CMP, ANEU, MDW, ADIFF, GFR #### [address] [address] Calcium [Mass/Vol] 9.0 mg/dL Normal 8.4-10.2 [facility] ([place]) Comment on above: Performed By: #### L IP, CBC, CMP, ANEU, MDW, ADIFF, GFR #### [address] [address] Chloride [Moles/Vol] 104 mmol/L Normal 98-107 [facility] ([place]) Comment on above: Performed By: #### L IP, CBC, CMP, ANEU, MDW, ADIFF, GFR #### [address] [address] CO2 [Moles/Vol] 29 mmol/L Normal 22-29 [facility] ([place]) Comment on above: Performed By: #### L IP, CBC, CMP, ANEU, MDW, ADIFF, GFR #### [address] [address] Creatinine [Mass/Vol] 0.99 mg/dL Normal 0.70-1.30 [facility] ([place]) Comment on above: Performed By: #### L IP, CBC, CMP, ANEU, MDW, ADIFF, GFR #### [address] [address] Electrolyte Balance 8.0 mEq/L Normal 4.0-15.0 [facility] ([place]) Comment on above: Performed By: #### L IP, CBC, CMP, ANEU, MDW, ADIFF, GFR #### [address] [address] Globulin 2.9 G/dL Normal [facility] ([place]) Comment on above: Performed By: #### L IP, CBC, CMP, ANEU, MDW, ADIFF, GFR #### [address] [address] Glucose [Mass/Vol] 112 mg/dL High 70-105 [facility] ([place]) Comment on above: Performed By: #### L IP, CBC, CMP, ANEU, MDW, ADIFF, GFR #### [address] [address] Potassium [Moles/Vol] 3.9 mmol/L Normal 3.5-5.1 [facility] ([place]) Comment on above: Performed By: #### L IP, CBC, CMP, ANEU, MDW, ADIFF, GFR #### [address] [address] Sodium [Moles/Vol] 141 mmol/L Normal 136-145 [facility] ([place]) Comment on above: Performed By: #### L IP, CBC, CMP, ANEU, MDW, ADIFF, GFR #### [address] [address] Total Protein 6.8 G/dL Normal 6.4-8.2 [facility]) Comment on above: Performed By: #### L IP, CBC, CMP, ANEU, MDW, ADIFF, GFR #### [address] [address] Urea nitrogen [Mass/Vol] 14 mg/dL Normal 7-18 [facility]) Comment on above: Performed By: #### L IP, CBC, CMP, ANEU, MDW, ADIFF, GFR #### [address] [address] LIPIDon 06-26-2023 Cholesterol [Mass/Vol] 219 mg/dL High 0-200 [facility] ([place]) Comment on above: Result Comment: Chol esterol Reference Interval: Less than 200 Desirable 200-239 Borderline high risk 240 and above High risk Performed By: #### L IP, CBC, CMP, ANEU, MDW, ADIFF, GFR #### [address] [address] Cholesterol in HDL [Mass/Vol] 48 mg/dL Normal 40-60 [facility] ([place]) Comment on above: Performed By: #### L IP, CBC, CMP, ROBERTO, NILESH, ADIFF, GFR #### [id number] [place], [place] [address] Cholesterol in LDL [Mass/Vol] 161 mg/dL High 0-130 [facility] ([place]) Comment on above: Performed By: #### L IP, CBC, CMP, ROBERTO, NILESH, ADIFF, GFR #### [id number] [place], [place] [address] Triglyceride [Mass/Vol] 50 mg/dL Normal 0-150 [facility] ([place]) Comment on above: Result Comment: Trig lyceride Reference Interval: Less than 150 Normal 150-199 Borderline high risk 200-499 High risk 500 or higher Very high risk Performed By: #### L IP, CBC, CMP, ROBERTO, NILESH, ADIFF, GFR #### [id number] [place], [place] [address] PSAon 06-26-2023 Prostate Specific Antigen 1.03 ng/mL Normal 0.00-4.00 [facility] ([place]) Comment on above: Performed By: #### L IP, CBC, CMP, ROBERTO, NILESH, ADIFF, GFR #### [address] [address] Absolute lymphocyte countOrd ered By: Johan Steiner on 03-30-2023 Lymphocytes Auto (Unsp spec) [#/Vol] 1.99 10*3/uL 0.83-4.51 [facility] Basophil percentageOrdered B y: Johan Steiner on 03-30-2023 Basophils/100 WBC (Bld) 0.7 % 0-1 [facility] Bilirubin [Mass/Vol] 0.40 mg/dL 0.20-1.00 [facility] Comment on above: For patients on eltr ombopag therapy, use of Dimension [place] TBIL is not recommended. Chloride [Moles/Vol] 107 mmol/L 98-107 [facility] Eosinophils/100 WBC (Bld) 1.3 % 0-5 [facility] Glucose [Mass/Vol] 95 mg/dL 74-106 [facility] Neutrophils (Bld) [#/Vol] 3.4 10*3/uL 2.0-7.7 [facility] Neutrophils/100 WBC (Bld) 57.7 % 47-70 [facility] Potassium [Moles/Vol] 3.8 mmol/L 3.5-5.1 [facility] Protein [Mass/Vol] 6.5 g/dL 6.4-8.2 [facility] Sodium [Moles/Vol] 140 mmol/L 136-145 [facility] WBC (Bld) [#/Vol] 6.0 10*3/uL 4.4-11.0 [facility] Blood erythrocytes count (nu mber/volume)Ordered By: Johan Steiner on 03-30-2023 RBC (Bld) [#/Vol] 4.44 10*6/uL 4.6-6.2 [facility] Blood hemoglobin measurement (mass/volume)Ordered By: Johan Steiner on 03-30-2023 Hemoglobin (Bld) [Mass/Vol] 14.2 g/dL 13.0-16.5 [facility] Blood lymphocytes/100 leukoc ytesOrdered By: Johan Steiner on 03-30-2023 Lymphocytes/100 WBC (Bld) 33.4 % 19-41 [facility] Blood monocytes/100 leukocyt esOrdered By: Johan Steiner on 03-30-2023 Monocytes/100 WBC (Bld) 6.7 % 0-10 [facility] Blood platelet mean volumeOr dered By: Johan Steiner on 03-30-2023 Platelet mean volume (Bld) [Entitic vol] 10.1 fL 6.2-12.0 [facility] Determination of erythrocyte mean corpuscular volume (MCV)Ordered By: Johan Steiner on 03-30-2023 MCV (RBC) [Entitic vol] 91.4 fL 80-94 [facility] Hematocrit Auto (Bld) [Volum e fraction]Ordered By: Johan Steiner on 03-30-2023 Hematocrit (Bld) [Volume fraction] 40.6 % 40-54 [facility] Laboratory - Chemistry and C hemistry - challengeOrdered By: Johan Steiner on 03-30-2023 ALP [Catalytic activity/Vol] 63 U/L 45-117 [facility] ALT [Catalytic activity/Vol] 23 U/L 16-61 [facility] CO2 [Moles/Vol] 27.0 mmol/L 21.0-32.0 [facility] Globulin (S) [Mass/Vol] 2.9 g/dL 2.2-4.2 [facility] Lipase [Catalytic activity/Vol] 23 U/L 13-75 [facility] Comment on above: Please note:LIPASE r evised reference range effective 22. New Lipase methodology. Expected to produce lower values than the previous assay method. NEW Reference Range: 13 - 75 U/L Urea nitrogen/Creatinine [Mass ratio] 20.3 mg/mg 10-20 [facility] Laboratory - Hematology and Cell countsOrdered By: Johan Steiner on 03-30-2023 Erythrocyte distribution width (RBC) [Entitic vol] 39.9 fL 35.1-43.9 [facility] Erythrocyte distribution width (RBC) [Ratio] 11.9 % 11.6-14.6 [facility] Immature granulocytes/100 WBC (Bld) 0.200 % 0.0-0.9 [facility] Comment on above: IG% - Immature Granu locytes (promyelocytes, myelocytes and metamyelocytes) > 1% indicates that a LEFT SHIFT is Present. MCH (RBC) [Entitic mass] 32.0 pg 27.0-32.0 [facility] Nucleated RBC/100 WBC (Bld) [Ratio] 0 % 0-5 [facility] MCHC Auto (RBC) [Mass/Vol]Or dered By: Johan Steiner on 03-30-2023 MCHC (RBC) [Mass/Vol] 35.0 g/dL 32-36 [facility] No Panel InformationOrdered By: Johan Steiner on 03-30-2023 Estimated Creatinine Clearance Calc 101.39 ml/min [facility] Estimated GFR (MDRD) Amer 116 mL/min >60 [facility] Comment on above: GFR Calc Estimated GFR (MDRD) Non-Af Amer 96 mL/min >60 [facility] Comment on above: Non- GFR Calc Platelets bldOrdered By: Art Steiner on 03-30-2023 Platelets (Bld) [#/Vol] 246 10*3/uL 150-450 [facility] Serum or plasma albumin bernie urement (mass/volume)Ordered By: Johan Steiner on 03-30-2023 Albumin [Mass/Vol] 3.6 g/dL 3.2-5.0 [facility] Serum or plasma albumin/glob ulin mass ratioOrdered By: Johan Steiner on 03-30-2023 Albumin/Globulin [Mass ratio] 1.2 {ratio} 0.9-2.4 [facility] Serum or plasma calcium bernie urement (mass/volume)Ordered By: Johan Steiner on 03-30-2023 Calcium [Mass/Vol] 8.6 mg/dL 8.5-10.1 [facility] Serum or plasma creatinine m easurement (mass/volume)Ordered By: Johan Steiner on 03-30-2023 Creatinine [Mass/Vol] 0.89 mg/dL 0.70-1.30 [facility] Comment on above: The validity of the calculated GFR & GFRAA in patients over 70 years has not been determined. Clinical correlation is essential. Serum or plasma urea nitroge n measurement (mass/volume)Ordered By: Johan Steiner on 03-30-2023 Urea nitrogen [Mass/Vol] 18 mg/dL 7-18 [facility] Thin prep Papanicolaou smear with manual screeningOrdered By: Johan Steiner on 03-30-2023 Thin prep Papanicolaou smear with manual screening 14 U/L 15-37 [facility] Thin prep Papanicolaou smear with manual screening 6 5-15 [facility] .Auto Diffon 08-13-2022 Basophil, Absolute 0.0 10 3/mcL Normal 0.0-0.2 [facility] ([place]) Comment on above: Performed By: #### L IP, CBC, CMP, NILESH MEJIA, ADMELECIO, GFR #### [id number] [place], [place] [address] Basophils/100 WBC (Bld) 0.4 % Normal 0.0-2.5 [facility] ([place]) Comment on above: Performed By: #### L IP, CBC, CMP, NILESH MEJIA, ADMELECIO, GFR #### [address] [address] Eosinophil, Absolute 0.0 10 3/mcL Normal 0.0-0.4 [facility] ([place]) Comment on above: Performed By: #### L IP, CBC, CMP, ANEU, MDW, ADIFF, GFR #### [address] [address] Eosinophils/100 WBC (Bld) 0.6 % Normal 0.0-7.0 [facility] ([place]) Comment on above: Performed By: #### L IP, CBC, CMP, ANEU, MDW, ADIFF, GFR #### [address] [address] Lymphocyte, Absolute 0.8 10 3/mcL Normal 0.8-3.9 [facility] ([place]) Comment on above: Performed By: #### L IP, CBC, CMP, ANEU, MDW, ADIFF, GFR #### [address] [address] Lymphocytes/100 WBC (Bld) 11.8 % Normal 10.0-50.0 [facility] ([place]) Comment on above: Performed By: #### L IP, CBC, CMP, ANEU, MDW, ADIFF, GFR #### [address] [address] Monocyte, Absolute 0.5 10 3/mcL Normal 0.2-1.0 [facility] ([place]) Comment on above: Performed By: #### L IP, CBC, CMP, ANEU, MDW, ADIFF, GFR #### [address] [address] Monocytes/100 WBC (Bld) 7.6 % Normal 1.7-13.0 [facility] ([place]) Comment on above: Performed By: #### L IP, CBC, CMP, ANEU, MDW, ADIFF, GFR #### [address] [address] Neutrophils/100 WBC (Bld) 79.6 % Normal 37.0-80.0 [facility] ([place]) Comment on above: Performed By: #### L IP, CBC, CMP, ANEU, MDW, ADIFF, GFR #### [address] [address] .GFRon 08-13-2022 GFR 99 ml/min/1.73sqm Normal [facility] ([place]) Comment on above: Result Comment: GFR Population mean for , Non- Americans Ages 20-29 = 116 mL/min/1.73 sq.m. Ages 30-39 = 107 mL/min/1.73 sq.m. Ages 40-49 = 99 mL/min/1.73 sq.m. Ages 50-59 = 93 mL/min/1.73 sq.m. Ages 60-69 = 85 mL/min/1.73 sq.m. Ages 70+ = 75 mL/min/1.73 sq.m. Chronic Kidney Disease: Less than 60 mL/min/1.73 square meters End Stage Renal Disease: Less than 15 mL/min/1.73 square meters Performed By: #### L IP, CBC, CMP, ANEU, MDW, ADIFF, GFR #### [address] [address] GFR Non- 82 ml/min/1.73sqm Normal [facility] ([place]) Comment on above: Result Comment: GFR Population mean for , Non- Americans Ages 20-29 = 116 mL/min/1.73 sq.m. Ages 30-39 = 107 mL/min/1.73 sq.m. Ages 40-49 = 99 mL/min/1.73 sq.m. Ages 50-59 = 93 mL/min/1.73 sq.m. Ages 60-69 = 85 mL/min/1.73 sq.m. Ages 70+ = 75 mL/min/1.73 sq.m. Chronic Kidney Disease: Less than 60 mL/min/1.73 square meters End Stage Renal Disease: Less than 15 mL/min/1.73 square meters Performed By: #### L IP, CBC, CMP, ANEU, MDW, ADIFF, GFR #### [address] [address] .MDWon 08-13-2022 Monocyte Distribution Width 19.92 Normal 0.00-20.00 [facility] ([place]) Comment on above: Result Comment: For ED adult patients suspected of sepsis, MDW<=20.0 does not rule out sepsis or risk of sepsis Performed By: #### L IP, CBC, CMP, ANEU, MDW, ADIFF, GFR #### [place] [address] .NEUABSon 08-13-2022 Neutrophil, Absolute 5.3 10 3/mcL Normal 2.9-6.2 [facility] ([place]) Comment on above: Performed By: #### L IP, CBC, CMP, ANEU, MDW, ADIFF, GFR #### [place] [address] CBCon 08-13-2022 Erythrocyte distribution width (RBC) [Ratio] 12.9 % Normal 11.5-14.5 [facility] ([place]) Comment on above: Performed By: #### L IP, CBC, CMP, ANEU, MDW, ADIFF, GFR #### [place] [address] Hematocrit (Bld) [Volume fraction] 43.3 % Normal 42.0-52.0 [facility] ([place]) Comment on above: Performed By: #### L IP, CBC, CMP, ANEU, MDW, ADIFF, GFR #### [place] [address] Hgb 14.9 G/dL Normal 14.0-18.0 [facility] ([place]) Comment on above: Performed By: #### L IP, CBC, CMP, ANEU, MDW, ADIFF, GFR #### [place] [address] MCH (RBC) [Entitic mass] 31.7 pg High 27.0-31.2 [facility] ([place]) Comment on above: Performed By: #### L IP, CBC, CMP, ANEU, MDW, ADIFF, GFR #### [place] [address] MCHC 34.5 G/dL Normal 31.8-35.4 [facility] ([place]) Comment on above: Performed By: #### L IP, CBC, CMP, ANEU, MDW, ADIFF, GFR #### [address] [address] MCV (RBC) [Entitic vol] 91.9 fL Normal 80.0-94.0 [facility] ([place]) Comment on above: Performed By: #### L IP, CBC, CMP, ANEU, MDW, ADIFF, GFR #### [address] [address] Platelet 226 10 3/mcL Normal 130-400 [facility] ([place]) Comment on above: Performed By: #### L IP, CBC, CMP, ANEU, MDW, ADIFF, GFR #### [address] [address] Platelet mean volume (Bld) [Entitic vol] 7.9 fL Normal 7.4-10.4 [facility] ([place]) Comment on above: Performed By: #### L IP, CBC, CMP, ANEU, MDW, ADIFF, GFR #### [address] [address] RBC 4.71 10 6/mcL Normal 4.04-6.13 [facility] ([place]) Comment on above: Performed By: #### L IP, CBC, CMP, ANEU, MDW, ADIFF, GFR #### [place] [address] WBC 6.7 10 3/mcL Normal 4.6-10.8 [facility] ([place]) Comment on above: Performed By: #### L IP, CBC, CMP, ANEU, MDW, ADIFF, GFR #### [address] [address] CMPon 08-13-2022 Albumin Level 4.3 G/dL Normal 3.5-5.0 [facility] ([place]) Comment on above: Performed By: #### L IP, CBC, CMP, ANEU, MDW, ADIFF, GFR #### [address] [address] Albumin/Globulin [Mass ratio] 1.5 {ratio} Normal 1.1-2.5 [facility] ([place]) Comment on above: Performed By: #### L IP, CBC, CMP, ANEU, MDW, ADIFF, GFR #### [address] [address] ALP [Catalytic activity/Vol] 83 U/L Normal 40-135 [facility] ([place]) Comment on above: Performed By: #### L IP, CBC, CMP, ANEU, MDW, ADIFF, GFR #### [address] [address] ALT [Catalytic activity/Vol] 21 U/L Normal 16-63 [facility] ([place]) Comment on above: Performed By: #### L IP, CBC, CMP, ANEU, MDW, ADIFF, GFR #### [address] [address] AST [Catalytic activity/Vol] 17 U/L Normal 10-40 [facility] ([place]) Comment on above: Performed By: #### L IP, CBC, CMP, ANEU, MDW, ADIFF, GFR #### [address] [address] Bili Total 0.4 mg/dL Normal 0.2-1.0 [facility] ([place]) Comment on above: Result Comment: Use of this assay is not recommended for patients undergoing treatment with eltrombopag due to the potential for falsely elevated results. Performed By: #### L IP, CBC, CMP, ANEU, MDW, ADIFF, GFR #### [address] [address] BUN/Creatinine Ratio 13 ratio Normal 7-27 [facility] ([place]) Comment on above: Performed By: #### L IP, CBC, CMP, ANEU, MDW, ADIFF, GFR #### [address] [address] Calcium [Mass/Vol] 8.8 mg/dL Normal 8.4-10.2 [facility] ([place]) Comment on above: Performed By: #### L IP, CBC, CMP, ANEU, MDW, ADIFF, GFR #### [address] [address] Chloride [Moles/Vol] 103 mmol/L Normal 98-107 [facility] ([place]) Comment on above: Performed By: #### L IP, CBC, CMP, ANEU, MDW, ADIFF, GFR #### [address] [address] CO2 [Moles/Vol] 30 mmol/L High 22-29 [facility] ([place]) Comment on above: Performed By: #### L IP, CBC, CMP, ANEU, MDW, ADIFF, GFR #### [address] [address] Creatinine [Mass/Vol] 0.97 mg/dL Normal 0.70-1.30 [facility] ([place]) Comment on above: Performed By: #### L IP, CBC, CMP, ANEU, MDW, ADIFF, GFR #### [address] [address] Electrolyte Balance 8.0 mEq/L Normal 4.0-15.0 [facility] ([place]) Comment on above: Performed By: #### L IP, CBC, CMP, ANEU, MDW, ADIFF, GFR #### [address] [address] Globulin 2.9 G/dL Normal [facility] ([place]) Comment on above: Performed By: #### L IP, CBC, CMP, ANEU, MDW, ADIFF, GFR #### [address] [address] Glucose [Mass/Vol] 103 mg/dL Normal 70-105 [facility] ([place]) Comment on above: Performed By: #### L IP, CBC, CMP, ANEU, MDW, ADIFF, GFR #### [address] [address] Potassium [Moles/Vol] 3.4 mmol/L Low 3.5-5.1 [facility] ([place]) Comment on above: Performed By: #### L IP, CBC, CMP, ANEU, MDW, ADIFF, GFR #### [place] [id number] [place], [place] [address] Sodium [Moles/Vol] 141 mmol/L Normal 136-145 [facility] ([place]) Comment on above: Performed By: #### L IP, CBC, CMP, ANEU, MDW, ADIFF, GFR #### [address] [address] Total Protein 7.2 G/dL Normal 6.4-8.2 [facility] ([place]) Comment on above: Performed By: #### L IP, CBC, CMP, ANEU, MDW, ADIFF, GFR #### [address] [address] Urea nitrogen [Mass/Vol] 13 mg/dL Normal 7-18 [facility] ([place]) Comment on above: Performed By: #### L IP, CBC, CMP, ANEU, MDW, ADIFF, GFR #### [address] [address] [address] ABD/PELVIS W/ IV CONTRAST ONLYon 08-13-2022 CT ABD/PELVIS W/ IV CONTRAST ONLY ORIGINAL EXAMINATION: CT OF THE ABDOMEN AND PELVIS WITH CONTRAST 08/13/2022 5:49 pm TECHNIQUE: CT of the abdomen and pelvis was performed with the administration of intravenous contrast. Multiplanar reformatted images are provided for review. Automated exposure control, iterative reconstruction, and/or weight based adjustment of the mA/kV was utilized to reduce the radiation dose to as low as reasonably achievable. COMPARISON: None. HISTORY: ORDERING SYSTEM PROVIDED HISTORY: Fall 3 days ago, lower rib pain Reason for Exam: lower rib upper abdominal pain s/p injury FINDINGS: Lower Chest: There is scarring at the lung bases. Organs: 1.8 cm left hepatic lobe cyst. Additional scattered hepatic subcentimeter hypodensities are too small to characterize. Unremarkable gallbladder, spleen, adrenal gland, and pancreas. The kidneys enhance symmetrically. Subcentimeter hypodensity within the inferior pole of the right kidney is too small to characterize. No renal mass, calculus, or hydronephrosis. The ureters are normal in course and caliber. GI/Bowel: Unremarkable visible esophagus, stomach, and duodenum. The small bowel is normal in course and caliber. No colonic wall thickening or dilation. Normal appendix. Pelvis: Thickened bladder wall may be due to under distension versus chronic outlet obstruction. Enlarged prostate measures 4.8 cm in the transverse dimension. Peritoneum/Retroperit oneum: No free air or fluid. No adenopathy. Minimal atherosclerosis within the nonaneurysmal abdominal aorta. Bones/Soft Tissues: No acute soft tissue or osseous abnormality. IMPRESSION: No acute process within the abdomen or pelvis. I have personally reviewed the images of this examination and agree with the resident's findings and interpretation. Interpreted by: Murray Hooker Preliminary Report By: Danial Woody Electronically signed By Murray Hooker Dictated Date: 08/13/2022 6:01:36 PM Prelim Date: 08/13/2022 6:08:53 PM Sign Date: 08/13/2022 6:38:02 PM Ordering Provider: MANISHA CHÁVEZ [facility] ([place]) LABORATORYOrdered By: SYSTEM SYSTEM on 08-13-2022 Albumin BCP dye [Mass/Vol] 4.3 G/dL Invalid Interpretation Code 3.5 - 5.0 G/dL AO ADM SS Albumin/Globulin [Mass ratio] 1.5 {ratio} Invalid Interpretation Code 1.1 - 2.5 ratio AO ADM SS ALP [Catalytic activity/Vol] 83 U/L Invalid Interpretation Code 40 - 135 U/L AO ADM SS ALT With P-5'-P [Catalytic activity/Vol] 21 U/L Invalid Interpretation Code 16 - 63 U/L AO ADM SS AST With P-5'-P [Catalytic activity/Vol] 17 U/L Invalid Interpretation Code 10 - 40 U/L AO ADM SS Bilirubin [Mass/Vol] 0.4 mg/dL Invalid Interpretation Code 0.2 - 1.0 mg/dL AO ADM SS Calcium [Mass/Vol] 8.8 mg/dL Invalid Interpretation Code 8.4 - 10.2 mg/dL AO ADM SS Chloride [Moles/Vol] 103 mmol/L Invalid Interpretation Code 98 - 107 mmol/L AO ADM SS CO2 [Moles/Vol] 30 mmol/L Invalid Interpretation Code 22 - 29 mmol/L AO ADM SS Creatinine [Mass/Vol] 0.97 mg/dL Invalid Interpretation Code 0.70 - 1.30 mg/dL AO ADM SS Electrolyte Balance 8.0 mEq/L Invalid Interpretation Code 4.0 - 15.0 mEq/L AO ADM SS GFR 99 ml/min/1.73sqm Invalid Interpretation Code AO Chemistry S GFR Non- 82 ml/min/1.73sqm Invalid Interpretation Code AO Chemistry S Globulin 2.9 G/dL Invalid Interpretation Code AO ADM SS Glucose [Mass/Vol] 103 mg/dL Invalid Interpretation Code 70 - 105 mg/dL AO ADM SS Lipase [Catalytic activity/Vol] 25 U/L Invalid Interpretation Code 16 - 77 U/L AO ADM SS Potassium [Moles/Vol] 3.4 mmol/L Invalid Interpretation Code 3.5 - 5.1 mmol/L AO ADM SS Protein [Mass/Vol] 7.2 G/dL Invalid Interpretation Code 6.4 - 8.2 G/dL AO ADM SS Sodium [Moles/Vol] 141 mmol/L Invalid Interpretation Code 136 - 145 mmol/L AO ADM SS Urea nitrogen [Mass/Vol] 13 mg/dL Invalid Interpretation Code 7 - 18 mg/dL AO ADM SS Urea nitrogen/Creatinine [Mass ratio] 13 ratio Invalid Interpretation Code 7 - 27 ratio AO ADM SS LABORATORYOrdered By: Cong Paulson on 08-13-2022 Basophil, Absolute 0.0 103/mcL Invalid Interpretation Code 0.0 - 0.2 10^3/mcL AO Workflow SS Basophils/100 WBC (Bld) 0.4 % Invalid Interpretation Code 0.0 - 2.5 % AO Workflow SS Eosinophil, Absolute 0.0 103/mcL Invalid Interpretation Code 0.0 - 0.4 10^3/mcL AO Workflow SS Eosinophils/100 WBC (Bld) 0.6 % Invalid Interpretation Code 0.0 - 7.0 % AO Workflow SS Erythrocyte distribution width (RBC) [Ratio] 12.9 % Invalid Interpretation Code 11.5 - 14.5 % AO Workflow SS Hematocrit (Bld) [Volume fraction] 43.3 % Invalid Interpretation Code 42.0 - 52.0 % AO Workflow SS Hemoglobin (Bld) [Mass/Vol] 14.9 G/dL Invalid Interpretation Code 14.0 - 18.0 G/dL AO Workflow SS Lymphocyte, Absolute 0.8 103/mcL Invalid Interpretation Code 0.8 - 3.9 10^3/mcL AO Workflow SS Lymphocytes/100 WBC (Bld) 11.8 % Invalid Interpretation Code 10.0 - 50.0 % AO Workflow SS MCH (RBC) [Entitic mass] 31.7 pg Invalid Interpretation Code 27.0 - 31.2 pg AO Workflow SS MCHC 34.5 G/dL Invalid Interpretation Code 31.8 - 35.4 G/dL AO Workflow SS MCV (RBC) [Entitic vol] 91.9 fL Invalid Interpretation Code 80.0 - 94.0 fL AO Workflow SS Monocyte distribution width Auto (Bld) [Entitic vol] 19.92 Invalid Interpretation Code 0.00 - 20.00 AO Workflow SS Comment on above: Result Comment: For ED adult patients suspected of sepsis, MDW<=20.0 does not rule out sepsis or risk of sepsis Monocyte, Absolute 0.5 103/mcL Invalid Interpretation Code 0.2 - 1.0 10^3/mcL AO Workflow SS Monocytes/100 WBC (Bld) 7.6 % Invalid Interpretation Code 1.7 - 13.0 % AO Workflow SS Neutrophil, Absolute 5.3 103/mcL Invalid Interpretation Code 2.9 - 6.2 10^3/mcL AO Workflow SS Neutrophils/100 WBC (Bld) 79.6 % Invalid Interpretation Code 37.0 - 80.0 % AO Workflow SS Platelet mean volume (Bld) [Entitic vol] 7.9 fL Invalid Interpretation Code 7.4 - 10.4 fL AO Workflow SS Platelets (Bld) [#/Vol] 226 103/mcL Invalid Interpretation Code 130 - 400 10^3/mcL AO Workflow SS RBC (Bld) [#/Vol] 4.71 106/mcL Invalid Interpretation Code 4.04 - 6.13 10^6/mcL AO Workflow SS WBC (Bld) [#/Vol] 6.7 103/mcL Invalid Interpretation Code 4.6 - 10.8 10^3/mcL AO Workflow SS LIPon 08-13-2022 Lipase Level 25 U/L Normal 16-77 [facility] ([place]) Comment on above: Performed By: #### L IP, CBC, CMP, ANEU, MDW, ADIFF, GFR #### [address] [address] XR CHEST 1 VIEWon 08-13-2022 XR CHEST 1 VIEW ORIGINAL EXAMINATION: ONE XRAY VIEW OF THE CHEST 08/13/2022 4:46 pm COMPARISON: Chest x-ray 11/13/2021 HISTORY: ORDERING SYSTEM PROVIDED HISTORY: Reason for Exam: fall, pain FINDINGS: Normal cardiomediastinal contours. No focal consolidation, vascular congestion, pleural effusion, or pneumothorax. Degenerative changes within the shoulders and spine. No acute osseous abnormality. IMPRESSION: No acute radiographic findings. I have personally reviewed the images of this examination and agree with the resident's findings and interpretation. Interpreted by: Murray Hooker Preliminary Report By: Danial Woody Electronically signed By Murray Hooker Dictated Date: 08/13/2022 5:26:12 PM Prelim Date: 08/13/2022 5:27:05 PM Sign Date: 08/13/2022 5:33:04 PM Ordering Provider: MANISHA CHÁVEZ [facility] ([place]) Basophil percentageon 2021 Chloride [Moles/Vol] 106 mmol/L 98-107 [facility] Work Phone: Glucose [Mass/Vol] 114 mg/dL 74-106 [facility] Work Phone: Comment on above: Fasting Glucose resu lt from 100 to 125 mg/dL suggests IMPAIRED HOMEOSTASIS per A.D.A. criteria. Potassium [Moles/Vol] 4.1 mmol/L 3.5-5.1 [facility] Work Phone: Sodium [Moles/Vol] 139 mmol/L 136-145 [facility] Work Phone: Blood hemoglobin measurement (mass/volume)on 03-24-2022 Hemoglobin (Bld) [Mass/Vol] 15.9 g/dL 13.0-16.5 [facility] Work Phone: Laboratory - Chemistry and C hemistry - challengeon 03-24-2022 CO2 [Moles/Vol] 29.0 mmol/L 21.0-32.0 [facility] Work Phone: Urea nitrogen/Creatinine [Mass ratio] 13.0 mg/mg 10-20 [facility] Work Phone: No Panel Informationon 03-24 Estimated GFR (MDRD) Amer 102 mL/min >60 [facility] Work Phone: Comment on above: GFR Calc Estimated GFR (MDRD) Non-Af Amer 84 mL/min >60 [facility] Work Phone: Comment on above: Non- GFR Calc Serum or plasma calcium bernie urement (mass/volume)on 03-24-2022 Calcium [Mass/Vol] 9.4 mg/dL 8.5-10.1 [facility] Work Phone: Serum or plasma creatinine m easurement (mass/volume)on 03-24-2022 Creatinine [Mass/Vol] 1.00 mg/dL 0.70-1.30 [facility] Work Phone: Comment on above: The validity of the calculated GFR & GFRAA in patients over 70 years has not been determined. Clinical correlation is essential. Serum or plasma urea nitroge n measurement (mass/volume)on 03-24-2022 Urea nitrogen [Mass/Vol] 13 mg/dL 7-18 [facility] Work Phone: Thin prep Papanicolaou smear with manual screeningon 03-24-2022 Thin prep Papanicolaou smear with manual screening 4 5-15 [facility] Work Phone: LABORATORYOrdered By: Santosh Carr on 11-13-2021 Albumin BCP dye [Mass/Vol] 4.1 G/dL Invalid Interpretation Code 3.5 - 5.0 G/dL AO ADM SS Albumin/Globulin [Mass ratio] 1.5 {ratio} Invalid Interpretation Code 1.1 - 2.5 ratio AO ADM SS ALP [Catalytic activity/Vol] 84 U/L Invalid Interpretation Code 40 - 135 U/L AO ADM SS ALT With P-5'-P [Catalytic activity/Vol] 29 U/L Invalid Interpretation Code 16 - 63 U/L AO ADM SS AST With P-5'-P [Catalytic activity/Vol] 19 U/L Invalid Interpretation Code 10 - 40 U/L AO ADM SS Basophil, Absolute 0.00 103/mcL Invalid Interpretation Code 0.00 - 0.19 10^3/mcL AO Auto Heme SS Basophils/100 WBC (Bld) 0.6 % Invalid Interpretation Code 0.0 - 2.5 % AO Auto Heme SS Bilirubin [Mass/Vol] 1.2 mg/dL Invalid Interpretation Code 0.2 - 1.0 mg/dL AO ADM SS Calcium [Mass/Vol] 9.2 mg/dL Invalid Interpretation Code 8.4 - 10.2 mg/dL AO ADM SS Chloride [Moles/Vol] 102 mmol/L Invalid Interpretation Code 98 - 107 mmol/L AO ADM SS Cholesterol [Mass/Vol] 234 mg/dL Invalid Interpretation Code 0 - 200 mg/dL AO ADM SS Cholesterol in HDL [Mass/Vol] 42 mg/dL Invalid Interpretation Code 40 - 60 mg/dL AO ADM SS Cholesterol in LDL [Mass/Vol] 182 mg/dL Invalid Interpretation Code 0 - 130 mg/dL AO ADM SS CO2 [Moles/Vol] 27 mmol/L Invalid Interpretation Code 22 - 29 mmol/L AO ADM SS Creatinine [Mass/Vol] 0.94 mg/dL Invalid Interpretation Code 0.70 - 1.30 mg/dL AO ADM SS Electrolyte Balance 11.0 mEq/L Invalid Interpretation Code 4.0 - 15.0 mEq/L AO ADM SS Eosinophil, Absolute 0.10 103/mcL Invalid Interpretation Code 0.00 - 0.40 10^3/mcL AO Auto Heme SS Eosinophils/100 WBC (Bld) 1.5 % Invalid Interpretation Code 0.0 - 7.0 % AO Auto Heme SS Erythrocyte distribution width (RBC) [Ratio] 12.7 % Invalid Interpretation Code 11.5 - 14.5 % AO Auto Heme SS Globulin 2.8 G/dL Invalid Interpretation Code AO ADM SS Glucose [Mass/Vol] 112 mg/dL Invalid Interpretation Code 70 - 105 mg/dL AO ADM SS Hematocrit (Bld) [Volume fraction] 43.4 % Invalid Interpretation Code 42.0 - 52.0 % AO Auto Heme SS Hemoglobin (Bld) [Mass/Vol] 15.2 G/dL Invalid Interpretation Code 14.0 - 18.0 G/dL AO Auto Heme SS Lipase [Catalytic activity/Vol] 62 U/L Invalid Interpretation Code 73 - 393 U/L AO ADM SS Lymphocyte, Absolute 1.80 103/mcL Invalid Interpretation Code 0.77 - 3.85 10^3/mcL AO Auto Heme SS Lymphocytes/100 WBC (Bld) 29.4 % Invalid Interpretation Code 10.0 - 50.0 % AO Auto Heme SS MCH (RBC) [Entitic mass] 31.8 pg Invalid Interpretation Code 27.0 - 31.2 pg AO Auto Heme SS MCHC (RBC) [Mass/Vol] 35.0 G/dL Invalid Interpretation Code 31.8 - 35.4 G/dL AO Auto Heme SS MCV (RBC) [Entitic vol] 90.8 fL Invalid Interpretation Code 80.0 - 94.0 fL AO Auto Heme SS Monocyte, Absolute 0.40 103/mcL Invalid Interpretation Code 0.15 - 1.00 10^3/mcL AO Auto Heme SS Monocytes/100 WBC (Bld) 7.1 % Invalid Interpretation Code 1.7 - 13.0 % AO Auto Heme SS Neutrophil, Absolute 3.80 103/mcL Invalid Interpretation Code 2.85 - 6.16 10^3/mcL AO Auto Heme SS Neutrophils/100 WBC (Bld) 61.4 % Invalid Interpretation Code 37.0 - 80.0 % AO Auto Heme SS Platelet mean volume (Bld) [Entitic vol] 8.4 fL Invalid Interpretation Code 7.4 - 10.4 fL AO Auto Heme SS Platelets (Bld) [#/Vol] 257 103/mcL Invalid Interpretation Code 130 - 400 10^3/mcL AO Auto Heme SS Potassium [Moles/Vol] 3.6 mmol/L Invalid Interpretation Code 3.5 - 5.1 mmol/L AO ADM SS Protein [Mass/Vol] 6.9 G/dL Invalid Interpretation Code 6.4 - 8.2 G/dL AO ADM SS RBC (Bld) [#/Vol] 4.78 106/mcL Invalid Interpretation Code 4.04 - 6.13 10^6/mcL AO Auto Heme SS Sodium [Moles/Vol] 140 mmol/L Invalid Interpretation Code 136 - 145 mmol/L AO ADM SS Triglyceride [Mass/Vol] 50 mg/dL Invalid Interpretation Code 0 - 150 mg/dL AO ADM SS Urea nitrogen [Mass/Vol] 22 mg/dL Invalid Interpretation Code 7 - 18 mg/dL AO ADM SS Urea nitrogen/Creatinine [Mass ratio] 23 ratio Invalid Interpretation Code 7 - 27 ratio AO ADM SS WBC (Bld) [#/Vol] 6.20 103/mcL Invalid Interpretation Code 4.60 - 10.80 10^3/mcL AO Auto Heme SS LABORATORYOrdered By: SYSTEM SYSTEM on 11-13-2021 GFR 103 ml/min/1.73sqm Invalid Interpretation Code AO Chemistry S GFR Non- 85 ml/min/1.73sqm Invalid Interpretation Code AO Chemistry S Vital Signs Date Time Vital Sign Value Performing Clinician Facility 03-30-2023 14:57-0400 Respiratory rate 16 /min [facility] 03-30-2023 10:51-0400 Body height 177.8 cm [facility] 03-30-2023 10:51-0400 Body mass index (BMI) [Ratio] 23.7 kg/m2 [facility] 03-30-2023 10:51-0400 Body temperature 96.9 [degF] [facility] 03-30-2023 10:51-0400 Body weight 75 kg [facility] 03-30-2023 10:51-0400 Diastolic blood pressure 95 mm[Hg] [facility] 03-30-2023 10:51-0400 Heart rate 83 /min [facility] 03-30-2023 10:51-0400 SaO2% (BldA) [Mass fraction] 95 % [facility] 03-30-2023 10:51-0400 Systolic blood pressure 122 mm[Hg] [facility] 08-13-2022 19:11-0500 Diastolic Blood Pressure Non-Invasive 80 1 [employer] DO [facility] 08-13-2022 19:11-0500 Heart rate 97 /min [employer] DO [facility] 08-13-2022 19:11-0500 Respiratory rate 18 /min MANISHA [employer] DO [facility] 08-13-2022 19:11-0500 Systolic Blood Pressure Non-Invasive 129 1 [employer]ISHA [employer] DO [facility] 08-13-2022 16:21-0500 Body height 177.8 cm [employer] DO [facility] 08-13-2022 16:21-0500 Body temperature 98.6 [degF] MANISHA REICHFIELD DO [facility] 08-13-2022 16:21-0500 Body weight 75 kg MANISHA REICHFIELD DO [facility] 08-13-2022 16:21-0500 Diastolic Blood Pressure Non-Invasive 82 1 MANISHA REICHFIELD DO [facility] 08-13-2022 16:21-0500 Heart rate 99 /min MANISHA REICHFIELD DO [facility] 08-13-2022 16:21-0500 Respiratory rate 20 /min MANISHA REICHFIELD DO [facility] 08-13-2022 16:21-0500 Systolic Blood Pressure Non-Invasive 134 1 MANISHA REICHFIELD DO [facility] 11-20-2021 18:13-0400 Body temperature 98.24 [degF] CINTHIA VELIZ MD [facility] 11-20-2021 18:13-0400 Diastolic blood pressure 87 mm[Hg] CINTHIA VELIZ MD [facility] 11-20-2021 18:13-0400 Heart rate 84 /min CINTHIA VELIZ MD [facility] 11-20-2021 18:13-0400 Respiratory rate 18 /min CINTHIA VELIZ MD [facility] 11-20-2021 18:13-0400 Systolic blood pressure 129 mm[Hg] CINTHIA VELIZ MD [facility] Encounters Encounter Date Encounter Type Care Provider Facility Start: 02-26-2025 End: 02-26-2025 Patient encounter procedure Jocelin CASTREJON -[facility] Work Phone: Start: 02-26-2025 End: 02-26-[address] Michelle Rosales DO Work Phone: -[facility] Start: 02-15-2025 End: 02-15-[address] MICHELLE ROSALES DO Facility:[facility] Start: 02-15-2025 End: 02-15-[address] MICHELLE ROSALES DO [facility] Start: 01-15-2025 End: 01-15-[address] MICHELLE ROSALES DO Facility:[facility] Start: 01-15-2025 End: 01-15-[address] MICHELLE ROSALES DO [facility] Start: 11-21-2024 End: 11-21-[address] MICHELLE ROSALES DO Facility:[facility] Start: 11-21-2024 End: 11-21-[address] MICHELLE ROSALES DO [facility] Start: 07-31-2024 End: 07-31-2024 Emergency department patient visit Michelle Rosales Facility:[facility] Start: 08-03-2023 End: 08-04-[address] MICHELLE ROSALES DO Facility:[facility] Start: 08-03-2023 End: 08-03-[address] MICHELLE ROSALES DO [facility] Start: 06-28-2023 End: 06-29-[address] MICHELLE ROSALES DO Facility:[facility] Start: 06-28-2023 End: 06-28-[address] MICHELLE ROSALES DO [facility] Start: 06-26-2023 End: 06-27-[address] MICHELLE ROSALES DO Facility:B Start: 03-30-2023 End: 03-30-2023 Emergency department patient visit [facility]-Emergency Department Work Phone: Start: 08-13-2022 End: 08-13-2022 Emergency department patient visit DR MICHELLE ROSALES DO Facility:B Start: 08-13-2022 End: 08-13-2022 Emergency department patient visit MANISHA CHÁVEZ DO [facility] Start: 03-24-2022 End: 03-24-[address] [facility] Work Phone: Start: 03-24-2022 End: 03-24-2022 Patient encounter procedure [facility]-Pulmonary Services/Neurology Start: 11-28-2021 End: 11-28-[address] MICHELLE ROSALES DO [facility] Start: 11-20-2021 End: 11-20-2021 Emergency department patient visit CINTHIA VELIZ MD [facility] Start: 11-13-2021 End: 11-13-[address] MICHELLE ROSALES DO [facility] Procedures Date Procedure Procedure Detail Performing Clinician Start: 03-30-2023 Computed tomography of abdomen and pelvis with contrast Start: 07-26-2017 Carpal tunnel syndro me (disorder) DR MICHELLE ROSALES DO Comment on above: left Start: 08-26-2006 Trigeminal nerve structure (body structure) DR MICHELLE ROSALES DO Plan of Treatment Date Care Activity Detail Author C reactive protein [Mass/volume] in Serum or Plasma [facility] CBC W Auto Different ial panel - Blood [facility] Comprehensive metabo lic 2000 panel - Serum or Plasma [facility] Cytoplasmic ANCA Screen [facility] Elastase.pancreatic [Presence] in Stool [facility] Patient Education Diverticulitis Dc ED Gastritis (Adult) [facility] Work Phone: Patient referral [facility] Work Phone: Protein measurement [facility] Radionuclide gastric emptying study [facility] Thyroid stimulating hormone measurement [facility] Triacylglycerol lipa se measurement [facility] Immunizations Immunization Date Immunization Notes Care Provider Fa cility 12-27-2024 tetanus toxoid, redu eloy diphtheria toxoid, and acellular pertussis vaccine, adsorbed; Translations: [Boostrix (Tdap)] DR MICHELLE ROSALES DO [facility] Payers Date Payer Category Payer Private Health Insurance [id number] 2024 Unknown [id number] 2024 Self-pay 2024 Unknown [id number] 2022 Unknown [id number] 1970 Unknown [id number] 2.16.8 [id number] 1971 Unknown [id number] 2.16.8 [id number] 1971 Unknown [id number] 2.16.8 [id number] 1971 Unknown [id number] 2.16.8 [id number] 1971 Unknown [id number] 2.16.8 [id number] 1971 Unknown [id number] 2.16. [id number] 1971 Unknown [id number] 2.16. [id number] 1970 Unknown [id number] 2.16.8 [id number] Unknown [id number] Unknown [id number] 2.16.8 [id number] Unknown [id number] 2.16.8 [id number] Unknown [id number] 2.16.8 [id number] Social History Date Type Detail Facility Start: 10-15-2021 End: 01-12-2025 Tobacco smoking status Ex-smoker (finding) [facility] Start: 1970 Sex Assigned At Male A [facility] Start: 03-30-2023 [facility] Sexual Orientation [facility] Start: 12-27-2020 Sex Male (finding) [facility] Functional Status Date Assessment Result Facility 08-13-2022 Functional Status Independent [facility] 08-13-2022 Functional Status ID band on, Call device within reach, Bed in low position, Wheels locked, Upper/Half-Length side-rails up [facility] 11-20-2021 Functional Status [facility] Mental Status Date Assessment Result Facility 08-13-2022 Mental Status Orientation Oriented x 4 [facility] 08-13-2022 Mental Status [facility] 11-20-2021 Mental Status [facility] Clinical Notes 11-20-2021 to 11-21-2024 Note Date & Type Note Facility 11-21-2024 Note Exam Date Time Procedure Performing Provider Status 11/21/24 11:07 AM US Scrotum Contents ROBBIE BERMUDEZ MD; Auth (Verified) [id number] ORIGINAL EXAMINATION: ULTRASOUND OF THE SCROTUM/TESTICLES WITH COLOR DOPPLER FLOW EVALUATION11/21/2024 11:08 am Scrotal Ultrasound with Duplex Doppler evaluation TECHNIQUE: Duplex ultrasound using B-mode/neville scaled imaging, Doppler spectral analysis and color flow Doppler was obtained of the testicles. Grayscale, color Doppler and spectral waveform evaluation This report is based on interpretation of permanently recorded ultrasound images. COMPARISON: None HISTORY: ORDERING SYSTEM PROVIDED HISTORY: Reason for Exam: left testicular patient found mass, ?varicocele, FINDINGS: Right testicle: 4.3 x 1.8 x 2.6 cm Left testicle: 3.1 x 1.9 x 2.6 cm There is probably mild tubular ectasia of the rete testis on the right side which is a benign process of no clinical significance. No suspicious focal nor diffuse abnormalities are seen. Color Doppler flow is seen in both testicles in a symmetric fashion. Spectral waveform analysis of the testicles shows arterial and venous waveforms in both testicles. Right epididymis: There are multiple small cysts in the right epididymis. The largest of these is 1.1 cm. Left epididymis: The palpable lump on the left side is a simple appearing cyst in the epididymal head that is 2.2 cm. There are other smaller left epididymal cysts also. Hydrocele: There is a physiologic amount of peritesticular fluid bilaterally, no significant hydrocele. A small scrotolith is present on the left side within the fluid. Varicocele: No obvious significant varicocele on this study. IMPRESSION: The palpable lump on the left is from an epididymal cyst. Normal testicles. No obvious or significant varicocele. Interpreted by: Robbie Bermudez MD Preliminary Report By: Robbie Bermudez MD Electronically signed By Robbie Bermudez MD Dictated Date: 11/21/2024 5:07:17 PM Prelim Date: 11/21/2024 5:10:37 PM Sign Date: 11/21/2024 5:10:37 PM Ordering Provider: MICHELLE [facility]04-29-2025 Note* Exam Date Time Procedure Performing Provider Status 11/21/24 10:[address] Abdomen/Pelvis w/Contrast Fiorella GOLDSTEIN MD; Auth (Verified) [id number] ORIGINAL HISTORY: Pain, liver masses COMPARISON: [address] 03 August 2023 TECHNIQUE: CT of the Abdomen and Pelvis following uncomplicated administration of intravenous and oral contrast, with sagittal and coronal reconstructions. This exam was performed according to our departmental dose optimization program, and includes the following measures where applicable: automated exposure control, adjustment of the mAs and/or kVp according to patient size and/or exam, and an iterative reconstruction algorithm. FINDINGS: The study is mildly degraded by motion. There are left and right hepatic cysts and there are subcentimeter hypodensities in the liver, too small to characterize further. There are subcentimeter hypodensities in the right kidney, too small to characterize further. The remaining abdominal organs are unremarkable in appearance. Bowel is normal in caliber. There is mild irregular wall thickening at the distal ileum. A normal appendix is identified. There is no free fluid. IMPRESSION: Hepatic lesions are not significantly changed since the examination of July 2022, most of small to characterize further. The wall of the distal ileum appears somewhat irregular and thickened here, but this may be due to poor distension. If there is concern small-bowel follow-through or CT enterography may be considered. Interpreted by: Kevin Goldstein MD Preliminary Report By: Kevin Goldstein MD Electronically signed By Kevin Goldstein MD Dictated Date: 11/21/2024 10:46:30 AM Prelim Date: 11/21/2024 10:53:08 AM Sign Date: 11/21/2024 10:53:08 AM Ordering Provider: MICHELLE [facility]12-04-2023 Note ORIGINAL EXAMINATION: CT OF THE HEAD WITHOUT CONTRAST 06/28/2023 3:26 pm TECHNIQUE: CT of the head was performed without the administration of intravenous contrast. Automated exposure control, iterative reconstruction, and/or weight based adjustment of the mA/kV was utilized to reduce the radiation dose to as low as reasonably achievable. COMPARISON: None. HISTORY: ORDERING SYSTEM PROVIDED HISTORY: Reason for Exam: trigeminal neuralgia, left eyelid droop PCP noticed lt eyelid drop at recent visit. Pt is unaware of how long droop has been going on. Hx trigeminal neuralgia, chronic pain rt side of head and face. FINDINGS: BRAIN/VENTRICLES: There is no acute intracranial hemorrhage, mass effect or midline shift. No abnormal extra-axial fluid collection. The neville-white differentiation is maintained without evidence of an acute infarct. There is no evidence of hydrocephalus. ORBITS: The visualized portion of the orbits demonstrate no acute abnormality. SINUSES: The visualized paranasal sinuses and mastoid air cells demonstrate no acute abnormality. SOFT TISSUES/SKULL: No acute abnormality of the visualized skull or soft tissues. IMPRESSION: No acute intracranial abnormality. Interpreted by: Tee Lebron MD Preliminary Report By: Tee Lebron MD Electronically signed By Tee Lebron MD Dictated Date: 06/28/2023 3:30:14 PM Prelim Date: 06/28/2023 3:30:28 PM Sign Date: 06/28/2023 3:30:28 PM [facility] Discharge summary Author Johan Steiner [facility] March 30, 2023 2:52pm Note Date/Time March 30, 2023 12:09pm [facility] Medical Records Department [address] [place] [address] Emergency Department Summary 03/30/23 MR#: [id number] Acct: [id number] Name: KEVIN KINGHT Rep #:[id number] : 1970 52 From: Johan Harris PCP: Dr. Michelle Rosales, DO Status:REG ER Location: ED HPI HPI - GI History of Present Illness Chief Complaint: Abd Pain Informant: patient Narrative Narrative: Intermittent left upper quadrant abdominal pain for past 3 weeks. More persistent over the last week. States a mild pain stools have been more stringy. Today had blood when he wiped. Colonoscopy from screening 5 to 6 years ago in [place]. States had a polypectomy that was removed. No anticoagulation medicines. No past medical history. Decreased urine output. Denies fever chills or sweats. States when he eats a large meal would feel fullness in his upper abdomen. Denies any vomiting. Prior similar symptoms: No PFSH PFSH Medical History Trigeminal neuralgia Home Medications cefdinir 300 mg capsule 300 mg PO BID #19 caps 03/30/23 [Rx Last Taken Unknown] metronidazole 500 mg tablet 500 mg PO Q8H #29 tabs 03/30/23 [Rx Last Taken Unknown] pantoprazole 40 mg tablet,delayed release 40 mg PO DAILY #30 tabs 03/30/23 [Rx Last Taken Unknown] Allergy/AdvReac Type Severity Reaction Status Date / Time No Known Allergies Allergy Verified 03/30/23 10:50 Social History Smoking Status: Former smoker ROS ROS ED Constitutional Constitutional ED: Denies chills, fever(s) or sweats Eyes Eyes: Denies change in vision ENT ENT ED: Denies dysphagia or sore throat Cardiovascular Cardiovascular: Denies chest pain, leg edema, palpitations or racing heartbeat Respiratory/Chest Respiratory/Chest: Denies cough, dyspnea or dyspnea on exertion Gastrointestinal Gastrointestinal: Reports abdominal pain; Denies diarrhea, nausea or vomiting Genitourinary Genitourinary ED: Denies dysuria, hematuria or urinary frequency Musculoskeletal Musculoskeletal: Denies back pain, extremity pain or neck pain Integumentary Denies rash or wounds Neurologic Neurologic: Denies headache(s), paresthesias or weakness EXAM Physical Exam Const Vital Signs: 03/30/23 10:51 Temperature 96.9 F L Temperature Source Temporal Pulse Rate 83 Respiratory Rate 14 Blood Pressure 122/95 H Blood Pressure Mean 104 Pulse Ox 95 Oxygen Delivery Method Room Air Positive well nourished and well developed General Appearance ED: well developed and NAD HEENT Reports moist mucous membranes normocephalic and atraumatic Eyes PERRL, EOMs intact bilaterally and conjunctivae normal General Eye ED: Yes normal appearance of both eyes Neck no lymphadenopathy and supple General: Negative for tenderness Chest Wall Chest: Negative for tenderness Resp normal respiratory effort and normal air movement Effort and Inspection: symmetric chest movement; Negative for respiratory distress Cardio regular rate, regular rhythm and no murmurs Peripheral Pulses: pulses 2+ throughout GI normal to inspection, nondistended, normoactive bowel sounds GI Narrative: Mild tenderness epigastrium left upper quadrant. No guarding or rebound. Negative Carbajal's or McBurney's tenderness. Palpation: Negative for guarding or rebound tenderness present Back/Spine no CVA tenderness and no thoracic nor lumbar tenderness Extremity normal to inspection General Extremety ED: Negative for edema or tenderness General Extremity: Negative for edema Neuro oriented x3 and no sensory deficits noted Sensorium / Orientation: awake and alert Skin no rashes or lesions noted and no wounds MDM MDM MDM Narrative Medical decision making narrative: Interventions / MDM: Differential diagnosis: Gastritis, colitis, colon cancer Diagnosis considered but do not suspect: N/A My EKG interpretation: N/A Imaging independently reviewed and interpreted by myself: CT abdomen pelvis withIV and p.o. contrast: Sigmoid diverticulitis, hepatic cysts. External documents reviewed: N/A Test considered but not ordered:N/A ED course: Patient nonsurgical abdomen progressing pain left upper quadrant. Reports decreased size of stools. Polypectomy 5 to 6 years ago [id number]. Labs were drawn CT scan with IV and oral contrast ordered. Was given Pepcid forhis epigastric discomfort. 1430: Labs all stable, CT scan notes concerns for uncomplicated diverticulitis. Denies any rectal bleeding. He is feeling better on reexamination. Started on cefdinir and Flagyl p.o. He does not drink alcohol. Prescription for 10-day course of Flagyl and cefdinir, also pantoprazole for gastritis symptoms. He is given follow-up with GI for follow-up outpatient further testing. All questionswere answered. Re-evaluation: stable Disposition discussed with patient/family/significant other: Patient Case discussed with consulting clinician: N/A This note was generated with [employer] dictation software. It may contain incorrectwords, spelling, and punctuation that were not noted in checking the note beforesigning. Lab Data Attestation: I reviewed the patient's lab results. Labs: Laboratory Results - last 24 hr 03/30/23 11:09 WBC 6.0 RBC 4.44 L Hgb 14.2 Hct 40.6 MCV 91.4 MCH 32.0 MCHC 35.0 RDW Std Deviation 39.9 RDW Coeff of Micaela 11.9 Plt Count 246 MPV 10.1 Immature Gran % (Auto) 0.200 Neut % (Auto) 57.7 Lymph % (Auto) 33.4 Toole % (Auto) 6.7 Eos % (Auto) 1.3 Baso % (Auto) 0.7 Absolute Neuts (auto) 3.4 Absolute Lymphs (auto) 1.99 Nucleated RBC % 0 Sodium 140 Potassium 3.8 Chloride 107 Carbon Dioxide 27.0 Anion Gap 6 BUN 18 Creatinine 0.89 Estim Creat Clear Calc 101.39 Est GFR (MDRD) Af Amer 116 Est GFR (MDRD) Non-Af 96 BUN/Creatinine Ratio 20.3 H Glucose 95 Calcium 8.6 Total Bilirubin 0.40 AST 14 L ALT 23 Alkaline Phosphatase 63 Total Protein 6.5 Albumin 3.6 Globulin 2.9 Albumin/Globulin Ratio 1.2 Lipase 23 Radiography Diagnostic Testing: Clinical Impression(s) from Imaging Studies Abdomen/Pelvis CT 03/30/23 14:07 IMPRESSION: Findings suggestive of a colitis involving the rectosigmoid colon as well as the descending colon. Mild degree of bladder wall thickening although the bladder is not completely distended. Findings suggestive of multiple hepatic small cysts. Electronically Signed: John Sloan MD at 14:23 EDT , Discharge Plan Triage Chief Complaint: Abd Pain ED Provider: Johan Steiner Dx/Rx/DC Orders Clinical Impression: Acute diverticulitis of intestine, Gastritis Instructions: Diverticulitis Dc, ED Gastritis (Adult) Prescriptions: New metronidazole [metronidazole] 500 mg tablet 500 mg PO Q8H Qty: 29 0RF pantoprazole 40 mg tablet,delayed release (DR/EC) 40 mg PO DAILY Qty: 30 0RF cefdinir 300 mg capsule 300 mg PO BID Qty: 19 0RF Stand Alone Forms: ED Work / School Excuse Primary Care Provider: Michelle Rosales Referrals: Michelle Rosales DO [Primary Care Provider] - Leonid Schaefer DO [Med Staff - Active Staff] - 1-2 Weeks Activity Restrictions/Additional Instructions: Oral and IV contrast CT sigmoid diverticulitis. Take antibiotics and finish as prescribed. Avoid alcohol or alcohol products. Follow-up with GI as an outpatient for likely plan colonoscopy in the near future. Return if any worsening symptoms Disposition Disposition: Home, Self Care What to do if you have Problems For any increased pain, shortness of breath, bleeding, nausea or vomiting, chestpain, or any unexpected problems, contact your Primary Care Provider. Call [employer] [facility] ([phone]) or report to the closest Emergency Room. Call 911 if necessary. 03/30/23 1452 <Electronically signed by Johan Harris> Cosigner Signature (if applicable): CC: Dr. Michelle Rosales DO ~ Signed [facility] Work Phone: [phone] 173-622101-19-2023 Hospital Discharge instructions Patient Education 08/13/2022 18:57:04 AA [facility] (CUSTOM) Result type:CT Abd/Pelvis w/ IV Contrast Only Result date:August 13, 2022 17:46 EST Result status:Auth (Verified) Result title:CT ABD/PELVIS W/ IV CONTRAST ONLY Performed by:MURRAY HOOKER MD on August 13, 2022 17:34 EST Cosigned by:DANIAL WOODY DO Verified by:MURRAY HOOKER MD on August 13, 2022 17:46 EST Encounter info:[id number], ALECIA SYLACAUGA, Emergency, 08/13/2022 - Contributor system:[employer] * Final Report * [id number] ORIGINAL EXAMINATION: CT OF THE ABDOMEN AND PELVIS WITH CONTRAST 08/13/2022 5:49 pm TECHNIQUE: CT of the abdomen and pelvis was performed with the administration of intravenous contrast. Multiplanar reformatted images are provided for review. Automated exposure control, iterative reconstruction, and/or weight based adjustment of the mA/kV was utilized to reduce the radiation dose to as low as reasonably achievable. COMPARISON: None. HISTORY: ORDERING SYSTEM PROVIDED HISTORY: Fall 3 days ago, lower rib pain Reason for Exam: lower rib upper abdominal pain s/p injury FINDINGS: Lower Chest: There is scarring at the lung bases. Organs: 1.8 cm left hepatic lobe cyst. Additional scattered hepatic subcentimeter hypodensities are too small to characterize. Unremarkable gallbladder, spleen, adrenal gland, and pancreas. The kidneys enhance symmetrically. Subcentimeter hypodensity within the inferior pole of the right kidney is too small to characterize. No renal mass, calculus, or hydronephrosis. The ureters are normal in course and caliber. GI/Bowel: Unremarkable visible esophagus, stomach, and duodenum. The small bowel is normal in course and caliber. No colonic wall thickening or dilation. Normal appendix. Pelvis: Thickened bladder wall may be due to under distension versus chronic outlet obstruction. Enlarged prostate measures 4.8 cm in the transverse dimension. Peritoneum/Retroperitoneum: No free air or fluid. No adenopathy. Minimal atherosclerosis within the nonaneurysmal abdominal aorta. Bones/Soft Tissues: No acute soft tissue or osseous abnormality. IMPRESSION: No acute process within the abdomen or pelvis. I have personally reviewed the images of this examination and agree with the resident's findings and interpretation. Interpreted by: Murray Hooker Preliminary Report By: Danial Woody Electronically signed By Murray Hooker Dictated Date: 08/13/2022 6:01:36 PM Prelim Date: 08/13/2022 6:08:53 PM Sign Date: 08/13/2022 6:38:02 PM Ordering Provider: MANISHA CHÁVEZ IMAGE This document has an image Document Released: 07/12/2006 Document Revised: 06/28/2013 Document Reviewed: 07/13/2014 [employer] Patient Information 2015 [employer]. This information is not intended to replace advicegiven to you by your health care provider. Make sure you discuss any questions you have with your health care provider. 08/13/2022 16:37:01 Rib Contusion or Minor Fracture Rib Contusion or Minor Fracture A rib contusion is a bruise to one or more rib bones. It may cause pain, tenderness, swelling, and a purplish color to the skin. There may be a sharp pain with each breath. A rib contusion takes anywhere from a few days to a few weeks to heal. A minor rib fracture or break may cause the same symptoms as a rib contusion. The small crack may not be seen on a regular chest X-ray. Treatment for both problems is basically the same. Home care You may use [id number] pain medicine to control pain, unless another pain medicine was prescribed. If you have chronic liver or kidney disease or ever had a stomach ulcer or GI (gastrointestinal) bleeding, talk with your healthcare provider before using these medicines. Rest. Don't lift anything heavy or do any activity that causes pain. Apply an ice pack over the injured area for 15 to 20 minutes every 1 to 2 hours. You should do thisfor the first 24 to 48 hours. To make an ice pack, put ice cubes in a plastic bag that seals at thetop. Wrap the bag in a clean, thin towel or cloth. Never put ice or an ice pack directly on the skin. Continue with ice packs as needed for the relief of pain and swelling. The first 3 to 4 weeks of healing will be the most painful. If your pain is not under control with the treatment given, call your healthcare provider. Sometimes a stronger pain medicine may be needed. A nerve block can be done in case of severe pain. It will numb the nerve between the ribs. Follow-up care Follow up with your healthcare provider, or as advised. If X-rays were taken, you will be told of any new findings that may affect your care. Call 911 Call 911 if you have: Dizziness, weakness or fainting Shortness of breath with or without chest discomfort New or worsening pain When to seek medical advice Call your healthcare provider right away if any of these occur: Fever of 100.4 F (38 C) or higher, or as directed by your healthcare provider Chills Stomach pain, vomiting [id number] [employer]. [address] [place] [address]. All rights reserved. This information is not intended as a substitute for professional medical care. Always follow yourhealthcare professional's instructions. 08/13/2022 16:36:53 Fall, Mechanical Mechanical Fall You have had a fall today. It appears that the cause is what is called mechanical. That means that you slipped, tripped, or lost your balance. If your fall had been because of fainting or a seizure, you might need other tests. It is normal to feel sore and tight in your muscles and back the next day, and not just the musclesyou injured at first. Remember, all the parts of your body are connected, so while initially one area hurts, the next day another may hurt. Also, when you injure yourself, it causes inflammation, which then causes the muscles to tighten up and hurt more. After the initial worsening, it should gradually improve over the next few days. Do report more severe pain. Even without a definite head injury, you can still get a concussion from your head suddenly jerkingforward, backward, or sideways when falling. Concussions and even bleeding can still happen, especially if you have had a recent injury or take blood thinner medicine. It is not unusual to have a mild headache and feel tired and even nauseous or dizzy. Home care Rest today and go back to your normal activities when you are feeling back to normal. If you were injured during the fall, follow the advice from your healthcare provider regarding careof your injury. At first, do not try to stretch out the sore spots. If there is a strain, stretching may make it worse. Massage may help relax the muscles without stretching them. You can use an ice pack or cold compress on and off to the sore spots 10 to 20 minutes at a time, as often as you feel comfortable. This may help reduce the inflammation, swelling and pain. If you have any scrapes or abrasions, they usually heal within 10 days. It is important to keep theabrasions clean while they initially start to heal. However, an infection may happen even with proper care, so watch for early signs of infection (such as warmth, redness, or swelling). Medicines Talk to your healthcare provider before taking new medicines, especially if you have other medical problems or are taking other medicines. If you need anything for pain, you can take acetaminophen or ibuprofen, unless you were given a different pain medicine to use. Talk with your healthcare provider before using these medicines if you have chronic liver or kidney disease, or ever had a stomach ulcer or gastrointestinal bleeding, or are taking blood thinner medicines. Be careful if you are given prescription pain medicines, narcotics, or medicine for muscle spasm. They can make you sleepy and dizzy, and can affect your coordination, reflexes, and judgment. Do not drive or do work where you can injure yourself when taking them. Fall prevention Fix, remove, or replace anything that caused your fall. Make your home safe by keeping walkways clear of objects you may trip over. Use nonslip pads under rugs. Don't use small area rugs or throw rugs. Don't walk in poorly lit areas. Don't stand on chairs or wobbly ladders. Use caution when reaching overhead or looking upward. This position can cause a loss of balance. Be sure your shoes fit properly, have nonslip bottoms and are in good condition. Be cautious when going up and down curbs, and walking on uneven sidewalks. If your balance is poor, consider using a cane or walker. Stay as active as you can. Balance, flexibility, strength, and endurance all come from exercise. They all play a role in preventing falls. If you have pets, know where they are before you stand up or walk so you don't trip over them. Limit alcohol intake. Alcohol can cause balance problems and increase the risk of falls. Use night lights. Have your eyes tested to be sure you are seeing well, even if you already wear glasses. Follow-up Follow up with your healthcare provider, or as advised. If X-rays or CT scans were done, you will be notified if there is a change in the reading, especially if it affects treatment. Call 911 Call 911 if any of these happen: Trouble breathing Confused or difficulty arousing Fainting or loss of consciousness Rapid or very slow heart rate Seizure Difficulty with speech or vision, weakness of an arm or leg Difficulty walking or talking, loss of balance, numbness or weakness in one side of your body, or facial droop When to seek medical advice Call your healthcare provider right away if any of these happen: Repeated mechanical falls, or unexplained falls Dizziness Severe headache Blood in vomit, stools (black or red color) 9427-1702 [employer]. [address] [place] [address]. All rights reserved. This information is not intended as a substitute for professional medical care. Always follow yourhealthcare professional's instructions. Follow Up Care 08/13/2022 16:17:28 With:Go to emergency room if symptoms worsen Address:Unknown When:2-4 days With:MICHELLE ROSALES DO Address: [address] [place] [address] Physicians [place], [place] [phone] When:2-4 days [facility] 01-19-2023 Note Discharge Instructions Thank you for allowing [facility] to assist you with your healthcare needs. The following is importantdischarge information regarding your hospital visit. Diagnosis from Today's Visit Fall Rib pain Rib/trunk pain-swelling What to Do Next Instructions from Your Care Team Take Percocet only as needed for severe pain. Do not take Percocet before operating heavy machinery. Do not exceed the recommended dose. May take Tylenol and or Motrin as needed for pain otherwise. Be careful in taking Tylenol as Percocet does contain some Tylenol so do not exceed the recommended dose of Tylenol. CT did show a liver cyst. Follow-up with your primary care provider. Return emergency department if experience worsening pain, difficulty breathing, fevers, or any other care concern. No qualifying data available. Post Acute Orders No qualifying data available. You Need to Schedule the Following Appointments Follow Up with Go to emergency room if symptoms worsen When Within 2-4 days Follow Up with MICHELLE ROSALES DO When Within 2-4 days Where: 0 [facility] [place] [address]- [phone] Allergies NKA Medications Please ask your primary doctor or pharmacist before taking any other medication not listed, including over the counter drugs, herbal medications, vitamins and or supplements as they may interact withyour home medications. What How Much When Why Instructions Last Dose New acetaminophen-oxyCODONE (Percocet 5 mg-325 mg oral tablet) 1 tab(s) by mouth Every 6 hours as needed for for pain Fall Rib pain Duration: 5 Days Printed Prescription Unchanged albuterol (Ventolin HFA MDI (90 mcg/ inh) inhalation aerosol) 2 puff(s) by inhalation Every 4 hours as needed for Shortness of breath or wheezing Duration: 30 Days use with spacer chamber. PHARMACY PLEASE DISPENSE SPACER. Okay to substitute alternative brand if needed for insurance. Unchanged amitriptyline (amitriptyline 10 mg oral tablet) 1 tab(s) by mouth Daily at bedtime Duration: 60 Days Unchanged hydrOXYzine (hydrOXYzine hydrochloride 50 mg oral tablet) 1 tab(s) by mouth Four (4) times a day as needed for as needed for anxiety Duration: [address], operate heavy machinery, or drink alcohol while on this medication. Okay to try half a tab when first starting medication. Do not take any other anti-histamines while on this medication. Please take this list to your next doctor s visit. Bring all medications you take, including over the counter medications, herbals and other supplements with you to your doctor s visit. Patients and families are reminded to discard old lists and to update any records with all medication providers or retail pharmacies. Education Materials Result type: CT Abd/Pelvis w/ IV Contrast Only Result date: August 13, 2022 17:46 EST Result status: Auth (Verified) Result title: CT ABD/PELVIS W/ IV CONTRAST ONLY Performed by: MURRAY HOOKER MD on August 13, 2022 17:34 EST Cosigned by: DANIAL WOODY DO Verified by: MURRAY HOOKER MD on August 13, 2022 17:46 EST Encounter info: [id number], ALECIA WREN, Emergency, 08/13/2022 - Contributor system: [employer] * Final Report * [id number] ORIGINAL EXAMINATION: CT OF THE ABDOMEN AND PELVIS WITH CONTRAST 08/13/2022 5:49 pm TECHNIQUE: CT of the abdomen and pelvis was performed with the administration of intravenous contrast. Multiplanar reformatted images are provided for review. Automated exposure control, iterative reconstruction, and/or weight based adjustment of the mA/kV was utilized to reduce the radiation dose to as low as reasonably achievable. COMPARISON: None. HISTORY: ORDERING SYSTEM PROVIDED HISTORY: Fall 3 days ago, lower rib pain Reason for Exam: lower rib upper abdominal pain s/p injury FINDINGS: Lower Chest: There is scarring at the lung bases. Organs: 1.8 cm left hepatic lobe cyst. Additional scattered hepatic subcentimeter hypodensities are too small to characterize. Unremarkable gallbladder, spleen, adrenal gland, and pancreas. The kidneys enhance symmetrically. Subcentimeter hypodensity within the inferior pole of the right kidney is too small to characterize. No renal mass, calculus, or hydronephrosis. The ureters are normal in course and caliber. GI/Bowel: Unremarkable visible esophagus, stomach, and duodenum. The small bowel is normal in course and caliber. No colonic wall thickening or dilation. Normal appendix. Pelvis: Thickened bladder wall may be due to under distension versus chronic outlet obstruction. Enlarged prostate measures 4.8 cm in the transverse dimension. Peritoneum/Retroperitoneum: No free air or fluid. No adenopathy. Minimal atherosclerosis within the nonaneurysmal abdominal aorta. Bones/Soft Tissues: No acute soft tissue or osseous abnormality. IMPRESSION: No acute process within the abdomen or pelvis. I have personally reviewed the images of this examination and agree with the resident's findings and interpretation. Interpreted by: Murray Hooker Preliminary Report By: Danial Woody Electronically signed By Murray Hooker Dictated Date: 08/13/2022 6:01:36 PM Prelim Date: 08/13/2022 6:08:53 PM Sign Date: 08/13/2022 6:38:02 PM Ordering Provider: MANISHA CHÁVEZ IMAGE This document has an image Document Released: 07/12/2006 Document Revised: 06/28/2013 Document Reviewed: 07/13/2014 [facility] Patient Information 2015 [employer] [facility]. This information is not intended to replace advicegiven to you by your health care provider. Make sure you discuss any questions you have with your health care provider. Rib Contusion or Minor Fracture A rib contusion is a bruise to one or more rib bones. It may cause pain, tenderness, swelling, and a purplish color to the skin. There may be a sharp pain with each breath. A rib contusion takes anywhere from a few days to a few weeks to heal. A minor rib fracture or break may cause the same symptoms as a rib contusion. The small crack may not be seen on a regular chest X-ray. Treatment for both problems is basically the same. Home care You may use llre-uvk-vwjetyy pain medicine to control pain, unless another pain medicine was prescribed. If you have chronic liver or kidney disease or ever had a stomach ulcer or GI (gastrointestinal) bleeding, talk with your healthcare provider before using these medicines. Rest. Don't lift anything heavy or do any activity that causes pain. Apply an ice pack over the injured area for 15 to 20 minutes every 1 to 2 hours. You should do thisfor the first 24 to 48 hours. To make an ice pack, put ice cubes in a plastic bag that seals at thetop. Wrap the bag in a clean, thin towel or cloth. Never put ice or an ice pack directly on the skin. Continue with ice packs as needed for the relief of pain and swelling. The first 3 to 4 weeks of healing will be the most painful. If your pain is not under control with the treatment given, call your healthcare provider. Sometimes a stronger pain medicine may be needed. A nerve block can be done in case of severe pain. It will numb the nerve between the ribs. Follow-up care Follow up with your healthcare provider, or as advised. If X-rays were taken, you will be told of any new findings that may affect your care. Call 911 Call 911 if you have: Dizziness, weakness or fainting Shortness of breath with or without chest discomfort New or worsening pain When to seek medical advice Call your healthcare provider right away if any of these occur: Fever of 100.4 F (38 C) or higher, or as directed by your healthcare provider Chills Stomach pain, vomiting [id number] [employer]. [address] [place] [address]. All rights reserved. This information is not intended as a substitute for professional medical care. Always follow yourhealthcare professional's instructions. Mechanical Fall You have had a fall today. It appears that the cause is what is called mechanical. That means that you slipped, tripped, or lost your balance. If your fall had been because of fainting or a seizure, you might need other tests. It is normal to feel sore and tight in your muscles and back the next day, and not just the musclesyou injured at first. Remember, all the parts of your body are connected, so while initially one area hurts, the next day another may hurt. Also, when you injure yourself, it causes inflammation, which then causes the muscles to tighten up and hurt more. After the initial worsening, it should gradually improve over the next few days. Do report more severe pain. Even without a definite head injury, you can still get a concussion from your head suddenly jerkingforward, backward, or sideways when falling. Concussions and even bleeding can still happen, especially if you have had a recent injury or take blood thinner medicine. It is not unusual to have a mild headache and feel tired and even nauseous or dizzy. Home care Rest today and go back to your normal activities when you are feeling back to normal. If you were injured during the fall, follow the advice from your healthcare provider regarding careof your injury. At first, do not try to stretch out the sore spots. If there is a strain, stretching may make it worse. Massage may help relax the muscles without stretching them. You can use an ice pack or cold compress on and off to the sore spots 10 to 20 minutes at a time, as often as you feel comfortable. This may help reduce the inflammation, swelling and pain. If you have any scrapes or abrasions, they usually heal within 10 days. It is important to keep theabrasions clean while they initially start to heal. However, an infection may happen even with proper care, so watch for early signs of infection (such as warmth, redness, or swelling). Medicines Talk to your healthcare provider before taking new medicines, especially if you have other medical problems or are taking other medicines. If you need anything for pain, you can take acetaminophen or ibuprofen, unless you were given a different pain medicine to use. Talk with your healthcare provider before using these medicines if you have chronic liver or kidney disease, or ever had a stomach ulcer or gastrointestinal bleeding, or are taking blood thinner medicines. Be careful if you are given prescription pain medicines, narcotics, or medicine for muscle spasm. They can make you sleepy and dizzy, and can affect your coordination, reflexes, and judgment. Do not drive or do work where you can injure yourself when taking them. Fall prevention Fix, remove, or replace anything that caused your fall. Make your home safe by keeping walkways clear of objects you may trip over. Use nonslip pads under rugs. Don't use small area rugs or throw rugs. Don't walk in poorly lit areas. Don't stand on chairs or wobbly ladders. Use caution when reaching overhead or looking upward. This position can cause a loss of balance. Be sure your shoes fit properly, have nonslip bottoms and are in good condition. Be cautious when going up and down curbs, and walking on uneven sidewalks. If your balance is poor, consider using a cane or walker. Stay as active as you can. Balance, flexibility, strength, and endurance all come from exercise. They all play a role in preventing falls. If you have pets, know where they are before you stand up or walk so you don't trip over them. Limit alcohol intake. Alcohol can cause balance problems and increase the risk of falls. Use night lights. Have your eyes tested to be sure you are seeing well, even if you already wear glasses. Follow-up Follow up with your healthcare provider, or as advised. If X-rays or CT scans were done, you will be notified if there is a change in the reading, especially if it affects treatment. Call 911 Call 911 if any of these happen: Trouble breathing Confused or difficulty arousing Fainting or loss of consciousness Rapid or very slow heart rate Seizure Difficulty with speech or vision, weakness of an arm or leg Difficulty walking or talking, loss of balance, numbness or weakness in one side of your body, or facial droop When to seek medical advice Call your healthcare provider right away if any of these happen: Repeated mechanical falls, or unexplained falls Dizziness Severe headache Blood in vomit, stools (black or red color) 8612-1858 [employer]. [address] [place] [address]. All rights reserved. This information is not intended as a substitute for professional medical care. Always follow yourhealthcare professional's instructions. Additional Information VACCINATE! IT SAVES LIVES! Members of the community who have not yet received the COVID-19 vaccine and would like to receive it can visit one of [facility] vaccine clinics. There are many vaccine clinic locations within the [facility]. For locations and available times, please visit [email or web address]. It is important to note that some COVID mobile vaccine clinics are held outdoors and may be canceled in rainy orstormy conditions. To learn more about pediatric vaccinations (ages 5-11), we invite you to visit the [facility] webpage. [email or web address] learn more about the COVID-19 vaccine, we invite you to visit the [facility] website for a list of frequently asked questions. [email or web address] [facility] Patient Portal Access Instructions: Stay connected with your healthcare team and access your personal medical information anytime with the [facility] Patient Portal. If you would like a full copy of your medical records please contact the [facility] Medical Records Department Wednesday through Wednesday between 8a.m. and 4:30p.m. Please follow the directions below to access the portal: 1.Access the email account you provided upon registration to the [facility].2.Look for an invitation email from [facility].3.Open the email and access the invitation link: Accept Invitation to [facility]4.Fill in the required soto to create your account. Sign into www.[employer]. with your username and password that you created in the above steps to stay up to date. You can then view a summary of results, a summary of your visits, and the ability to download your summaries to your computer or send the information securely to a physician. Remember that your healthcare information is confidential, so carefully consider who you will allow to register on the [facility] Patient Portal for access to your information. You can also access the [facility] Patient Portal on the [employer]rian. Simply click on Health Records under [employer] and then click on the [employer] logo. HOW TO SAFELY DISPOSE OF PRESCRIPTION MEDICATIONS Please use one of the following methods to safely dispose of your unused medications. 1.Use a drug disposal kit: the drug disposal pouch allows you to safely discard your old and unuseddrugs. Ask your nurse to give you one when you are discharged.2.Visit a local take-back location: Many local pharmacies and police departments have programs that collect old and unwanted prescriptiondrugs. Call your local pharmacy or go to http://[employer]/6G6It0e to find one close to you.3.Make use of household items: Use cat litter or old coffee grounds to dispose medications if other options arenot available. Mix your drugs with these household products, seal them in an airtight container andthrow it into the garbage. Call [facility]: [phone] to be sure your drugs can be disposed of in this way. Some medicines may require a different approach.4.Never flush your medications down the toilet. IF YOU HAVE BEEN PRESCRIBED AN OPIOIDS FOR PAIN If you have been prescribed an opioid (such as hydrocodone, oxycodone or morphine), it is critical to understand the possible side effects and risks of opioid pain medications. Even when taken as directed, opioids can have several side effects including: Tolerance, meaning you might need to take more of a medication for the same pain relief. Nausea, vomiting and/or constipation. Sleepiness, dizziness, dry mouth, confusion, depression or itching. Physical dependence, meaning you have withdrawal symptoms when a medication is stopped ? this can develop within a few days. KNOW YOUR RESPONSIBILITIES It is important to know exactly how much and how often to take the opioid pain medications you are prescribed. Never take opioids in higher amounts or more often than prescribed. Do not combine opioids with alcohol or other drugs that cause drowsiness, such as benzodiazepines, also known as benzos,including diazepam and alprazolam, muscle relaxants or sleep aids. Never sell or share prescriptionopioids. This is illegal. Store opioids in a secure place and out of reach of others (including children, family, friends and visitors). The last page(s) of this document has been signed and retained as a CHART COPY Signatures Patient Education Materials MARNIE FAM (CUSTOM) Rib Contusion or Minor Fracture Fall, Mechanical Medication Leaflets My discharge plan and instructions have been reviewed and explained to me and IANTONIA JAMES T understand my current condition and have read and understand these discharge instructions. I have received a written copy of the plan/instructions. If I have questions, I am aware that I should contactmy doctor. 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 Multiplanar reformatted images are provided for review. Automated exposure control, iterative reconstruction, and/or weight based adjustment of the mA/kV was utilized to reduce the radiation dose to as low as reasonably achievable. COMPARISON: None. HISTORY: ORDERING SYSTEM PROVIDED HISTORY: Fall 3 days ago, lower rib pain Reason for Exam: lower rib upper abdominal pain s/p injury FINDINGS: Lower Chest: There is scarring at the lung bases. Organs: 1.8 cm left hepatic lobe cyst. Additional scattered hepatic subcentimeter hypodensities are too small to characterize. Unremarkable gallbladder, spleen, adrenal gland, and pancreas. The kidneys enhance symmetrically. Subcentimeter hypodensity within the inferior pole of the right kidney is too small to characterize. No renal mass, calculus, or hydronephrosis. The ureters are normal in course and caliber. GI/Bowel: Unremarkable visible esophagus, stomach, and duodenum. The small bowel is normal in course and caliber. No colonic wall thickening or dilation. Normal appendix. Pelvis: Thickened bladder wall may be due to under distension versus chronic outlet obstruction. Enlarged prostate measures 4.8 cm in the transverse dimension. Peritoneum/Retroperitoneum: No free air or fluid. No adenopathy. Minimal atherosclerosis within the nonaneurysmal abdominal aorta. Bones/Soft Tissues: No acute soft tissue or osseous abnormality. IMPRESSION: No acute process within the abdomen or pelvis. I have personally reviewed the images of this examination and agree with the resident's findings and interpretation. Interpreted by: Murray Hooker Preliminary Report By: Danial Woody Electronically signed By Murray Hooker Dictated Date: 08/13/2022 6:01:36 PM Prelim Date: 08/13/2022 6:08:53 PM Sign Date: 08/13/2022 6:38:02 PM Ordering Provider: MANISHA [facility]01-19-2023 Note ORIGINAL EXAMINATION: CT OF THE ABDOMEN AND PELVIS WITH CONTRAST 08/13/2022 5:49 pm TECHNIQUE: CT of the abdomen and pelvis was performed with the administration of intravenous contrast. Multiplanar reformatted images are provided for review. Automated exposure control, iterative reconstruction, and/or weight based adjustment of the mA/kV was utilized to reduce the radiation dose to as low as reasonably achievable. COMPARISON: None. HISTORY: ORDERING SYSTEM PROVIDED HISTORY: Fall 3 days ago, lower rib pain Reason for Exam: lower rib upper abdominal pain s/p injury FINDINGS: Lower Chest: There is scarring at the lung bases. Organs: 1.8 cm left hepatic lobe cyst. Additional scattered hepatic subcentimeter hypodensities are too small to characterize. Unremarkable gallbladder, spleen, adrenal gland, and pancreas. The kidneys enhance symmetrically. Subcentimeter hypodensity within the inferior pole of the right kidney is too small to characterize. No renal mass, calculus, or hydronephrosis. The ureters are normal in course and caliber. GI/Bowel: Unremarkable visible esophagus, stomach, and duodenum. The small bowel is normal in course and caliber. No colonic wall thickening or dilation. Normal appendix. Pelvis: Thickened bladder wall may be due to under distension versus chronic outlet obstruction. Enlarged prostate measures 4.8 cm in the transverse dimension. Peritoneum/Retroperitoneum: No free air or fluid. No adenopathy. Minimal atherosclerosis within the nonaneurysmal abdominal aorta. Bones/Soft Tissues: No acute soft tissue or osseous abnormality. IMPRESSION: No acute process within the abdomen or pelvis. I have personally reviewed the images of this examination and agree with the resident's findings and interpretation. Interpreted by: Murray Hooker Preliminary Report By: Danial Woody Electronically signed By Murray Hooker Dictated Date: 08/13/2022 6:01:36 PM Prelim Date: 08/13/2022 6:08:53 PM Sign Date: 08/13/2022 6:38:02 PM Ordering Provider: [facility]01-19-2023 Note ORIGINAL EXAMINATION: ONE XRAY VIEW OF THE CHEST 08/13/2022 4:46 pm COMPARISON: Chest x-ray 11/13/2021 HISTORY: ORDERING SYSTEM PROVIDED HISTORY: Reason for Exam: fall, pain FINDINGS: Normal cardiomediastinal contours. No focal consolidation, vascular congestion, pleural effusion, or pneumothorax. Degenerative changes within the shoulders and spine. No acute osseous abnormality. IMPRESSION: No acute radiographic findings. I have personally reviewed the images of this examination and agree with the resident's findings and interpretation. Interpreted by: Murray Hooker Preliminary Report By: Danial Woody Electronically signed By Murray Hooker Dictated Date: 08/13/2022 5:26:12 PM Prelim Date: 08/13/2022 5:27:05 PM Sign Date: 08/13/2022 5:33:04 PM Ordering Provider: [facility]01-19-2023 Note ORIGINAL EXAMINATION: ONE XRAY VIEW OF THE CHEST 08/13/2022 4:46 pm COMPARISON: Chest x-ray 11/13/2021 HISTORY: ORDERING SYSTEM PROVIDED HISTORY: Reason for Exam: fall, pain FINDINGS: Normal cardiomediastinal contours. No focal consolidation, vascular congestion, pleural effusion, or pneumothorax. Degenerative changes within the shoulders and spine. No acute osseous abnormality. IMPRESSION: No acute radiographic findings. I have personally reviewed the images of this examination and agree with the resident's findings and interpretation. Interpreted by: Murray Hooker Preliminary Report By: Danial Woody Electronically signed By Murray Hooker Dictated Date: 08/13/2022 5:26:12 PM Prelim Date: 08/13/2022 5:27:05 PM Sign Date: 08/13/2022 5:33:04 PM Ordering Provider: [facility]04-28-2022 Hospital Discharge instructions Patient Education 11/20/2021 18:56:38 Hypertension, To Be Confirmed High Blood Pressure, To Be Confirmed, No Treatment Your blood pressure today was higher than normal. Sometimes anxiety or pain can cause a temporary rise in blood pressure. It later returns to normal. Blood pressure that is high only one time doesn tmean that you have high blood pressure (hypertension). High blood pressure is a chronic illness. But you should have your blood pressure measured again within the next few days to find out if it s still high. Blood pressure measurements are given as 2 numbers. Systolic blood pressure is the upper number. This is the pressure when the heart contracts. Diastolic blood pressure is the lower number. This is the pressure when the heart relaxes between beats. You will see your blood pressure readings written together. For example, a person with a systolic pressure of 118 and a diastolic pressure of 78 will have 118/78 written in the medical record. Blood pressure is categorized as normal, elevated, or stage 1 or stage 2 high blood pressure: Normal blood pressure is systolic of less than 120 and diastolic of less than 80 (120/80) Elevated blood pressure is systolic of 120 to 129 and diastolic less than 80 Stage 1 high blood pressure is systolic is 130 to 139 or diastolic between 80 to 89 Stage 2 high blood pressure is when systolic is 140 or higher or the diastolic is 90 or higher Lifestyle changes such as weight loss, exercise, and quitting smoking, can help manage your blood pressure. Have your blood pressure checked regularly to be sure it is under control. Home care To track your blood pressure, your provider may ask you to come into the office at different times and on different days. If your healthcare provider asks you to check your readings at home, ask him or her what times of the day to test and for how many days. Before you leave the office, ask your provider to show you how to take your blood pressure and be sure to ask questions if you don't understand something. Consider buying an automatic blood pressure monitor. Ask your provider for a recommendation as wellas the proper size cuff to fit your arm. You can buy blood pressure monitors at most pharmacies. The [place] [employer] recommends the following guidelines for home blood pressure monitoring: Don't smoke or drink coffee or other caffeinated drinks for 30 minutes before taking your blood pressure. Go to the bathroom before the test. Relax for 5 minutes before taking the measurement. Sit with your back supported (don't sit on a couch or soft chair); keep your feet on the floor uncrossed. Place your arm on a solid flat surface (like a table) with the upper part of the arm at heartlevel. Place the middle of the cuff directly above the bend of the elbow. Check the monitor's instruction manual for an illustration. Take multiple readings. When you measure, take 2 to 3 readings one minute apart and record all of the results. Take your blood pressure at the same time every day, or as your healthcare provider recommends. Record the date, time, and blood pressure reading. Take the record with you to your next medical appointment. If your blood pressure monitor has a built-in memory, simply take the monitor with you to your next appointment. Call your provider if you have several high readings. Don't be frightened by a single high blood pressure reading, but if you get several high readings, check in with your healthcare provider. Note: When blood pressure reaches a systolic (top number) of 180 or higher OR diastolic (bottom number) of 110 or higher, seek emergency medical treatment. Follow-up care Keep all of your follow up appointments. If your blood pressure is more than 120 over 80 on 2 out of 3 days, you will need to follow up with your healthcare provider for more evaluation and treatment. Don t put this off! High blood pressure can be treated. High blood pressure that s not treated raises your risk for heart attack, heart failure, and stroke. When to seek medical advice Call your healthcare provider right away if any of these occur: Blood pressure reaches a systolic (top number) of 180 or higher, OR diastolic (bottom number) of 110 or higher Chest pain or shortness of breath Severe headache Throbbing or rushing sound in the ears Nosebleed Sudden severe pain in your belly (abdomen) Extreme drowsiness, confusion, or fainting Dizziness or dizziness with spinning sensation (vertigo) Weakness of an arm or leg or one side of the face You have problems speaking or seeing [id number] [employer]. [address] [place] [address]. All rights reserved. This information is not intended as a substitute for professional medical care. Always follow [facility] professional's instructions. 11/20/2021 18:56:32 ABSCESS, I and D Abscess [Incision & Drainage] An abscess (sometimes called a boil ) occurs when bacteria get trapped under the skin and begin to grow. Pus forms inside the abscess as the body responds to the bacteria. An abscess can occur with an insect bite, ingrown hair, blocked oil gland, pimple, cyst, or puncture wound. Treatment of your abscess has required an incision to drain the pus. If the abscess pocket was large, a gauze packing may have been inserted. This will need to be removed and possibly replaced on your next visit. Antibiotics are not required in the treatment of a simple abscess, unless the infection is spreading into the skin around the wound (known as cellulitis ). Healing of the wound will take about one to two weeks depending on the size of the abscess. Healthytissue will grow from the bottom and sides of the opening until it seals over. Home Care: The wound may drain for the first two days. Cover the wound with a clean dry dressing. If the dressing becomes soaked with blood or pus, change it. If a gauze packing was placed inside the abscess cavity, you may be advised to remove it yourself. You may do this in the shower. Once the packing is removed, you should wash the area in the shower or bath 3 to 4 times a day, until the skin opening has closed. If you were prescribed antibiotics, take them as directed until they are all gone. You may use acetaminophen (Tylenol) or ibuprofen (Motrin, Advil) to control pain, unless another pain medicine was prescribed. [ NOTE: If you have liver disease or ever had a stomach ulcer, talk withyour doctor before using these medicines.] Follow Up with your doctor as advised by our staff. If a gauze packing was inserted in your wound, it should be removed in 1-2 days. Check your wound every day for the signs of worsening infection listed below. Get Prompt Medical Attention if any of the following occur: Increasing redness or swelling Red streaks in the skin leading away from the wound Increasing local pain or swelling Continued pus draining from the wound two days after treatment Fever of 100.4 F (38 C) or higher, or as directed by your healthcare provider [id number] [employer] [address] [place] [address]. All rights reserved. This information is not intended as a substitute for professional medical care. Always follow yourhealthcare professional's instructions. Follow Up Care 11/20/2021 18:11:43 With:MICHELLE ROSALES Address: [address] [place] [address] [place] [address]- [phone] Business (1) When:2-4 days Comments:Schedule appointment as soon as possibleReturn to ED if symptoms worsenRemove packing in 3 days andthen warm soaks and express followed by bacitracin till better. Follow up for culture results and blood pressure [facility] [employer] + Plan note Future Appointments Appointment Date:11/26/2021 04:30:00 PM Scheduled Provider:MICHELLE ROSALES DO Location:[facility] Appointment Type: OV Follow Up Future Scheduled Tests Laboratory* A1C Hemoglobin 11/13/21 [facility] Evaluation + Plan note Future Appointments Appointment Date:11/26/2021 04:30:00 PM Scheduled Provider:MICHELLE ROSALES DO Location:[facility] Appointment Type:PC OV Follow Up Appointment Date:11/28/2021 04:30:00 PM Scheduled Provider: Location:[facility] Appointment Type:US Renal Diagnostic Tests Pending * Culture Wound Aerobic with Gram Stain 11/20/21 Future Scheduled Tests Radiology* US Renal 11/28/21 [facility] Evaluation + Plan note Future Appointments Appointment Date:02/26/2022 04:30:00 PM Scheduled Provider:MICHELLE ROSALES DO Location:[facility] Appointment Type:PC Wellness Annual [facility] Evaluation + Plan note Future Appointments Appointment Date:09/21/2023 04:30:00 PM Scheduled Provider:MICHELLE ROSALES DO Location:[facility] Appointment Type:PC Wellness Annual Future Scheduled Tests Laboratory* A1C Hemoglobin 06/28/23 [facility] Evaluation + Plan note Future Appointments Appointment Date:12/27/2024 03:30:00 PM Scheduled Provider:MICHELLE ROSALES DO Location:[facility] Appointment Type:PC OV [facility] Evaluation + Plan note Future Appointments Appointment Date:02/07/2025 04:30:00 PM Scheduled Provider:MICHELLE ROSALES DO Location:[facility] Appointment Type:PC OV Future Scheduled Tests Radiology* CT Coronary Calcium Score w/o Contrast 12/27/24 [facility] Evaluation + Plan note Future Appointments Appointment Date:05/15/2025 04:30:00 PM Scheduled Provider:MICHELLE ROSALES DO Location:[facility] Appointment Type:PC Wellness Annual Future Scheduled Tests Radiology* CT Coronary Calcium Score w/o Contrast 02/07/25 [facility] evaluation noteNo assessment information available [facility] Work Phone: evaluation note* Diagnosis Onset Date Resolution Status Admit Date Abdominal pain acute February 10:54am Appetite loss acute February 26, 2025 10:54am Constipation acute February 26, 2025 10:54am [facility] Work Phone: Hospital course Narrative No data available for this section [facility] Discharge instructions No data available for this section [facility] Discharge instructions Additional Instructions Oral and IV contrast CT sigmoid diverticulitis. Take antibiotics and finish as prescribed. Avoid alcohol or alcohol products. Follow-up with GI as an outpatient for likely plan colonoscopy in the near future. [facility] Work [facility]: Progress note No data available for this section [facility] Reason for referral (narrative)No reason for referral [facility] Work Phone: Chief Complaint and Reason for Visit Chief Complaint LACERT EXTN / LABS Chief Complaint ABD Chief Complaint Admit Date ABDOMINAL PAIN February 26, 2025 10: 54am Reason for Visit Admit Date Abdominal pain February 26, 2025 10: 54am Appetite loss February 26, 2025 10: 54am Constipation February 26, 2025 10: 54am Advance Directives No Advanced Directives Records Found Advance Directive Response Recorded Date/ Time Living Will No March 30 11:10am Power of Assembly Hand No March 30, 2023 11:10am Summary Purpose Family History No Family History Records Found Additional Source Comments Care Team (unrecognized sect ion and content) Team Status: Active Member Role Status Dates Dr. Michelle Rosales DO Primary Care Provider Active Team Status: Inactive Member Role Status Dates Dr. Michelle Rosales DO Primary Care Provider Active Dr. Johan Steiner DO Emergency Provider Active Team Status: Active Member Role/Relationship Status Dates Dr. Michelle Rosales DO Primary Care Provider Active Team Status: Inactive Member Role/Relationship Status Dates Dr. Michelle Rosales DO Primary Care Provider Active Start: February 26, 2025 End: February 26, 2025 Dr. Michelle Rosales DO Referring Provider Active St art: February 26, 2025 End: February 26, 2025 LUCÍA Colvin Attending Provider Active S tart: February 26, 2025 End: February 26, 2025 Goals (unrecognized section and content) Goals may be documented in a n alternate section Care Team (unrecognized sect ion and content) Care Team Personnel Name: MICHELLE ROSALES DO Position: P4 Physician - Primary Care Member Role: Primary Care Physician Address: Address: [address] [facility] [place], [place] [address] Name: Pooja Lazar RN Position: AO RN Member Role: ED RN Name: MANISHA CHÁVEZ DO Position: AH ED Physician Member Role: Attending Physician Address: Address: [address] [place], [place] [address] [address]- Care Team Related Persons Name: KARMEN ALARCON (unrecognized sect ion and content) No Status Records FoundNo Status Records FoundNo Status Records Found INFORMATION SOURCE (unrecogn ized section and content) DATE CREATED AUTHOR 08/06/2023 [facility] ([place]) DATE CREATED AUTHOR AUTHOR'S ORGANIZ ATION 02/23/2025 [facility] DATE CREATED AUTHOR AUTHOR'S ORGANIZ ATION 02/27/2025 [facility] FOR RECORDS PERTAINING TO PATIENTS WHO ARE OR HAVE BEEN ENROLLED IN A CHEMICAL DEPENDENCY/SUBSTANCEABUSE PROGRAM, SOME INFORMATION MAY BE OMITTED. This clinical summary was aggregated from multiple sources. Caution should be exercised in using it in the provision of clinical care. This summary normalizes information from multiple sources, and as a consequence, information in this document may materially change the coding, format and clinical context of patient data. In addition, data may be omitted in some cases. CLINICAL DECISIONS SHOULD BE BASED ON THE PRIMARY CLINICAL RECORDS. [facility]. provides no warranty or guarantee of the accuracy or completeness of information in this document.
[2025-03-07 02:07] LABS: Pancreatic Elastase, Fecal > 800 (>200)
[2025-03-07 08:09] LABS: Calprotectin, Stool 36 ug/g (0-120)
== END | disposition home or self-care (01) ==
LOC: LABSPEC 07:15
PROVIDERS: PCP Student in an Organized Health Care Education/Training Program
DX: K59.00 Constipation, unspecified (principal); R63.0 Anorexia; R10.9 Unspecified abdominal pain
CPT/HCPCS: 82653; 83993

== ENCOUNTER → 2025-03-14 | Outpatient (CLI) | payer BC, SELFPAY ==
--- NOTE | 2025-03-14 11:52 | NM_ITS ---
PROCEDURE: GASTRIC EMPTYING STUDY 03/14/2025 REASON FOR EXAM: EARLY SATIETY COMPARISON: None. TECHNIQUE: The patient ingested a semi solid meal of oatmeal. There was no vomiting postprandially. Anterior and posterior planar images of the upper abdomen were obtained for a total of 60 minutes. Regions of interest were drawn, and a geometric mean was used to calculate a [id number]. Medications taken in the past 24 hours that may affect gastric emptying: None RADIOPHARMACEUTICAL: Technetium 99 M sulfur colloid DOSE 1mCi orally with the oatmeal. FINDINGS: During the time of imaging, gastroesophageal reflux was not identified. Linear fit gastric emptying half-time of 177.64 minutes. Gastric emptying: At 17.5 minutes, gastric emptying of 5%, 3% at 29.5 minutes, 11% at 47.5 minutes, and 20% at 59.5 minutes. NM/Gastric Emptying Study IMPRESSION: Abnormally reduced/slow semi solid phase gastric emptying. Reading Location: [place] [address]
== END | disposition home or self-care (01) ==
LOC: NM 11:49
PROVIDERS: PCP Student in an Organized Health Care Education/Training Program
DX: K59.00 Constipation, unspecified (principal); R63.0 Anorexia; R10.9 Unspecified abdominal pain
CPT/HCPCS: 78264; A9541

== ENCOUNTER → 2025-04-23 | Outpatient (CLI) | payer BC, SELFPAY ==
--- OUTSIDE RECORDS SUMMARY | 2025-03-15 08:31 | XMS RPT_ITS ---
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 ACCESSION NUMBER(S): [id number] ORDERING CLINICIAN: MICHELLE SANDOVAL TECHNIQUE: Using prospective ECG gating, CT scan of the coronary arteries was performed without intravenous contrast. Coronary calcium scoring was performed according to the method of Agatston. FINDINGS: The score and distribution of calcium in the coronary arteries is as follows: LM 0 LAD 11.2 LCx 0 RCA 22.58 Total 33.78 The visualized mid/lower ascending thoracic aorta measures 2.8 cm in diameter. The heart is normal in size. No pericardial effusion is present. No gross evidence of mediastinal or hilar lymphadenopathy or masses is identified. The visualized segments of the lungs are normally expanded. A 13 mm hypodensity is seen, in the right lobe of the liver under the dome of the diaphragm at image 45/52 consistent with a cyst. There are other tiny hypodensities, within the liver too small to characterize. IMPRESSION: 1. Coronary artery calcium score of 33.78*. *Coronary artery calcium scoring may be helpful in predicting the risk for future coronary heart disease events. According to the [employer] Clinical Expert Consensus Task Force, such testing provides important prognostic information in patients with more than one coronary heart disease risk factor. The coronary artery calcium score correlates with the annual risk of a non-fatal myocardial infarction or coronary heart disease . Coronary artery score Annual Risk 0-99 0.4% 100-399 1.3% >400 2.4% These three "breakpoints" correspond to lower, intermediate and high risk states for future coronary events. Such information should be used, along with appropriate clinical judgment, to make decisions regarding the intensity of risk factor management strategies to treat blood lipids and to modify other non-lipid coronary risk factors. Reference: Lancaster P et al. Circulation. 2007; 115:402-426 2. Hypodensities in the liver too small to characterize, with 1 larger hypodense lesion in the right lobe of the liver consistent with a cyst MACRO: None Signed by: Ken Westbrook 03/19/2025 8:48 AM Dictation workstation: [id number] XR CHEST 2 VIEWS Observed: 01/15/2025 2:45 PM Status: F Source: [facility] ORIGINAL EXAMINATION: TWO XRAY VIEWS OF THE [...] Date: 01/17/2025 8:20:18 AM Ordering Provider: MICHELLE SOARES SCROTUM CONTENTS Observed: 11/21/2024 11:00 AM Status: F Source: [facility] ORIGINAL EXAMINATION: ULTRASOUND OF THE SCROTUM/TESTICLES WITH [...] No obvious or significant varicocele. Interpreted by: Sage Bermudez MD Preliminary Report By: Sage Bermudez MD Electronically signed By Sage Bermudez MD Dictated Date: 11/21/2024 5:07:17 PM Prelim Date: 11/21/2024 5:10:37 PM Sign Date: 11/21/2024 5:10:37 PM Ordering Provider: MICHELLE SANDOVAL CT ABDOMEN/PELVIS W/CONTRAST Observed: 0 11/21/2024 10:30 AM Status: F Source: [facility] ORIGINAL HISTORY: Pain, liver masses COMPARISON: 13 [...] Date: 11/21/2024 10:53:08 AM Ordering Provider: MICHELLE SANDOVAL CBC Collected: 8:42 AM Status: F Source: [facility] TYPE CODE TESTS RESULT OUT OF RANGE REFERENCE UNITS LAB WBC(LOINC) WBC 5.0 4.5-10.8 10 3/mcL LAB RBCCT(LOINC) RBC 4.76 4.50-6.00 10 6/mcL LAB HGB(LOINC) Hgb 15.1 13.0-17.5 G/dL LAB HCT(LOINC) Hct 43.5 40.0-52.0 % LAB MCV(LOINC) MCV 91.3 81.0-100.0 fL LAB MCH(LOINC) MCH 31.8 27.0-33.0 pg LAB MCHC(LOINC) MCHC 34.8 32.0-36.0 G/dL LAB RDW(LOINC) RDW 12.7 11.5-15.5 % LAB PLT(LOINC) Platelet 212 150-450 10 3/mcL LAB MPV(LOINC) MPV 8.1 6.4-10.5 fL Performed By: #### LIP, CMP, CBC, PSA, ADIFF, GFR, ANEU #### [address] [address] .AUTO DIFF Collected: 11/21/2024 8:42 AM Status: F Source: [facility] TYPE CODE TESTS RESULT OUT OF RANGE REFERENCE UNITS LAB TONEY(LOINC) Neutrophil % 52.8 50.0-75.0 % LAB LYM(LOINC) Lymphocyte % 36.7 20.0-40.0 % LAB MON(LOINC) Monocyte % 7.4 2.0-13.0 % LAB EO(LOINC) Eosinophil % 2.4 0.0-6.0 % LAB BAS(LOINC) Basophil % 0.7 0.0-2.5 % LAB ABLYM(LOINC) Lymphocyte, Absolute 1.8 0.9-4.3 10 3/mcL LAB NILDA(LOINC) Monocyte, Absolute 0.4 0.1-1.4 10 3/mcL LAB AEOS(LOINC) Eosinophil, Absolute 0.1 0.0-0.7 10 3/mcL LAB ABAS(LOINC) Basophil, Absolute 0.0 0.0-0.3 10 3/mcL Performed By: #### LIP, CMP, CBC, PSA, ADIFF, GFR, ANEU #### [address] [address] .NEUABS Collected: 8:42 AM Status: F Source: [facility] TYPE CODE TESTS RESULT OUT OF RANGE REFERENCE UNITS LAB ANEU(LOINC) Neutrophil, Absolute 2.7 2.3-8.1 10 3/mcL Performed By: #### LIP, CMP, CBC, PSA, ADIFF, GFR, ANEU #### [facility] [address] [place], [place] [address] LIP Collected: 11/21/2024 8:42 AM Status: F Source: [facility] TYPE CODE TESTS RESULT OUT OF RANGE REFERENCE UNITS LAB LIP(LOINC) Lipase Level 32 16-77 U/L Performed By: #### LIP, CMP, CBC, PSA, ADIFF, GFR, ANEU #### [place] [address] [place], [place] [address] CMP Collected: 11/21/2024 8:42 AM Status: F Source: [facility] TYPE CODE TESTS RESULT OUT OF RANGE REFERENCE UNITS LAB GLU(LOINC) Glucose Level 107 High 70-105 mg/dL LAB NA(LOINC) Sodium Level 139 136-145 mmol/L LAB K(LOINC) Potassium Level 4.6 3.5-5.1 mmol/L LAB CL(LOINC) Chloride 104 98-107 mmol/L LAB CO2(LOINC) CO2 31 High 22-29 mmol/L LAB EBAL(LOINC) Electrolyte Balance 4.0 4.0-15.0 mEq/L LAB BUN(LOINC) BUN 18 7-18 mg/dL LAB CRE(LOINC) Creatinine Lvl (s) 0.99 0.67-1.17 mg/dL LAB BC(LOINC) BUN/Creatinine Ratio 18 7-27 ratio LAB CA(LOINC) Calcium Lvl 9.5 8.4-10.2 mg/dL LAB PROT(LOINC) Total Protein 6.9 6.4-8.2 G/dL LAB ALB(LOINC) Albumin Level 4.0 3.5-5.0 G/dL LAB GLB(LOINC) Globulin 2.9 2.7-4.4 G/dL LAB AG(LOINC) A/G Ratio 1.4 1.1-2.5 ratio LAB BILT(LOINC) Bili Total 0.6 0.2-1.0 mg/dL Result Comment: Use of this assay is not recommended for patients undergoing treatment with eltrombopag due to the potential for falsely elevated results. LAB AP(LOINC) Alk Phos 67 40-135 U/L LAB AST(LOINC) AST/SGOT 15 10-40 U/L LAB ALT(LOINC) ALT/SGPT 21 16-63 U/L Performed By: #### LIP, CMP, CBC, PSA, ADIFF, GFR, ANEU #### [address] [address] .GFR Collected: 11/21/2024 8:42 AM Status: F Source: [facility] TYPE CODE TESTS RESULT OUT OF RANGE REFERENCE UNITS LAB eGFR(LOINC) Estimated Glomerular Filtration Rate 91 ml/min/1. 73sqm Result Comment: Stages of Chronic Kidney Disease [...] calculate the eGFR results. Performed By: #### LIP, CMP, CBC, PSA, ADIFF, GFR, ANEU #### [address] [address] PSA Collected: 11/21/2024 8:42 AM Status: F Source: [facility] TYPE CODE TESTS RESULT OUT OF RANGE REFERENCE UNITS LAB PSA(LOINC) Prostate Specific Antigen 1.17 0.00-4.00 ng/mL Performed By: #### LIP, CMP, CBC, PSA, ADIFF, GFR, ANEU #### [address] [place], [place] [address] ALLERGIES DATE TYPE / CODE NAME / CODE REACTION SEVERITY SOURCE SYSTEMIC/[id number] 6(SNOMED CT) ALLERGIES NOT ON FILE [facility] ENCOUNTERS ADMIT/DISCHARGE ACCOUNT NUMBER ADMITTING ENCOUNTER CLASS LOCATION SOURCE 03/15/2025/ 5 [id number] Ambulatory Building:[facility] 02/15/2025/ 5 [id number] Ambulatory GRETNA MAINBuilding :[facility] 01/15/2025/ 5 [id number] Ambulatory GRETNA MAINBuilding :[facility] 11/21/2024/ 5 [id number] Ambulatory GRETNA MAINilding :[facility] PAYERS ENCOUNTER GUARANTOR PAYER SUBSCRIBER SOURCE 03/15/2025 KEVIN CAMARENA: [place] [address]Imy: (HP) Primary Insurance:ANTHEMPoli cy Number: [id number] e Date:2023-07-26 KEVIN MONTANAOB: [id number] [place] JOSEPH [address]Ghm: (HP) [facility] 02/15/2025 KEVIN MONTANAOB: [place] [address]~[email or web address] (HP) Primary Insurance:ANTHALFONSO BLUE CROSS INSCOPolicy Number: [id number] e Date:4812-49-10Jrat Name:[place]IN J[place] [address], [place] [address]VF: KEVIN MONTANAOB: [id number] [place] [address]Pfo: (HP) (WP) [facility] 01/15/2025 KEVIN MONTANAOB: [place] [address]~[email or web address] (HP) Primary Insurance:ANTHEM BLUE CROSS INSCOPolicy Number: [id number] e Date:[id number] Name:ETELVINA BAXTER [address]QK: KEVIN Hutchinson NANOB: [id number] [place] [address]Aaf: (HP) (WP) [facility] 11/21/2024 KEVIN MONTANAOB: [place] [address]~KEVIN [email or web address] (HP) Primary Insurance:RACH JANE INSCOPolicy Number: [id number] e Date:7002-02-23Vbzh Name:[place]USTIN J[place], [place] [address]MW: KEVIN Hutchinson NANOB: [id number] [place] [address]Pca: (HP) (WP) [facility]
--- NOTE | 2025-04-23 07:53 | NM_ITS ---
PROCEDURE: GASTRIC EMPTYING STUDY - 4 HR 04/23/2025 REASON FOR EXAM: EARLY SATIETY, DELAYED RESULTS W/1HR GET COMPARISON: Gastric emptying study, 03/14/2025 TECHNIQUE: Procedure Code: [id number] Modality: NM Procedure: GASTRIC EMPTYING STUDY - 4 HR The patient ingested a standard meal of 2 cooked eggs mixed with 1 mCi of technetium 99 M sulfur colloid, 2 pieces of white bread 2 pats of butter and 6 oz of water. Anterior and posterior planar images of the upper abdomen were obtained for 1 minute immediately following the meal at 1h, 2h and 4h if more than 10% of the activity persisted within the stomach. Regions of interest were drawn, and a geometric mean was used to calculate a [id number]. Medications taken in the past 24 hours that may affect gastric emptying: Unknown RADIOPHARMACEUTICAL: Technetium 99 M sulfur colloid DOSE 1mCi FINDINGS: Percent of activity remaining in the stomach: 1 hour 81 % (normal 37-90%) 2 hours: 53 % (normal 30-60%) 4 hours: 6 % (normal 0-10%) NM/Gastric Emptying Study - 4 HR IMPRESSION: Solid phase gastric emptying within normal limits. Reading Location: [place] [address]
== END | disposition home or self-care (01) ==
PROVIDERS: PCP Student in an Organized Health Care Education/Training Program
DX: R10.12 Left upper quadrant pain (principal); R63.0 Anorexia
CPT/HCPCS: 78264; A9541

== ENCOUNTER → 2025-06-14 | Outpatient (CLI) | payer BC, SELFPAY ==
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
--- NOTE | 2025-06-14 16:13 | MRI_ITS ---
PROCEDURE: MRCP ABDOMEN WITHOUT CONTRAST 06/14/2025 REASON FOR EXAM: WEIGHT LOSS WITH DILATED CBD AND PANCREATIC DUCT TECHNIQUE: Procedure Code: [id number] Modality: MR Procedure: MRCP ABDOMEN WITHOUT CONTRAST Multiplanar and multisequence images were obtained. CONTRAST: None. COMPARISON: CT abdomen and pelvis with IV contrast, 03/30/2023 FINDINGS: Liver: There are multiple small stable benign hepatic cysts. Biliary: There is a 10 mm gallstone. There is no intra or extrahepatic biliary ductal dilatation. Pancreas: Normal. There is no pancreatic ductal dilatation. Spleen: Normal. Adrenals: Normal. Kidneys: There is a benign cortical cyst in the interpolar region of the right kidney. The left kidney is unremarkable. GI tract: The visualized portion of the gastrointestinal tract appears unremarkable. Peritoneum / Retroperitoneum: There are no abnormal intra or retroperitoneal masses or fluid collections. There is no ascites. Lymph Nodes: There is no significant intra or retroperitoneal lymphadenopathy. Major Vessels: Unremarkable. Bones: No significant bony abnormalities. MRI/MRCP Abdomen without Contrast IMPRESSION: 1. Cholelithiasis. 2. There is no intra or extrahepatic biliary ductal dilatation. There is no p ancreatic ductal dilatation. 3. Benign hepatic and renal cysts. Reading Location: [place] [address]
== END | disposition home or self-care (01) ==
PROVIDERS: PCP Student in an Organized Health Care Education/Training Program; Referring Provider Internal Medicine Gastroenterology; Visit Provider Internal Medicine Gastroenterology
DX: R10.12 Left upper quadrant pain (principal); R63.0 Anorexia
CPT/HCPCS: 70220; 74181